=== PATIENT | male | born 1930 | race Caucasian/White ===

== ENCOUNTER 2016-12-19 07:42 | Observation (INO) ==
--- NOTE | 2016-12-19 08:10 | Emergency Department Note ---
Disposition Clinical Impression: Unwitnessed fall UTI (urinary tract infection) Qualifiers: Urinary tract infection type: site unspecified Hematuria presence: with hematuria Qualified Code(s): N39.0 - Urinary tract infection, site not specified Disposition: Admitted As Inpatient Condition: Good General Adult HPI - General Chief complaint: ED Fall Stated complaint: Fall/UTI Time Seen by Provider: 12/19/16 07:48 Source: patient, EMS Limitations: no limitations Nursing Notes Reviewed: Yes Vital Signs Reviewed: Yes - History of Present Illness HPI Narrative: History source: Patient is unable to provide information for this note. Info was gathered from the patient, hospital staff, the patient's chart. History limitations: Patient condition Medications: As per nurses note 86 yo male presents after a fall at 630am. Daughter found him on the floor this morning and he was unable to ambulate. Pt family thinks he has been diagnosed with UTI but is not currently taking antibiotics. Has fallen twice in the past two years but is generally able to ambulate throughout the house. Family states his current presentation is similar to his previous urinary tract infections. Patient has a history of dementia is generally slow to respond however he is unable to answer many of the questions that are posed to him during the exam. Pain Scale: 0 - Related Data Home Medications Medication Instructions Recorded Confirmed Aspirin [Adult Low Dose Aspirin EC] 81 mg PO DAILY 06/19/15 12/19/16 Spironolactone [Aldactone] 12.5 mg PO DAILY 06/19/15 12/19/16 Atorvastatin [Lipitor] 40 mg PO HS 12/19/16 12/19/16 Levothyroxine [Synthroid] 100 mcg PO 0630 12/19/16 12/19/16 Loperamide HCl [Imodium A-D] 4 mg PO BID 12/19/16 12/19/16 Melatonin 10 mg PO HS PRN 12/19/16 12/19/16 Memantine HCl 10 mg PO DAILY 12/19/16 12/19/16 Tamsulosin [Flomax] 0.4 mg PO DAILY 12/19/16 12/19/16 Previous Rx's Medication Instructions Recorded Lactobacillus Acidophilus 1 each PO DAILY #30 capsule 01/13/16 [Probiotic Gold Acidophilus] Allergies Allergy/AdvReac Type Severity Reaction Status Date / Time No Known Allergies Allergy Verified 12/19/16 10:31 Limitations: ROS unobtainable due to patients medical condition Past Medical History - Past Medical History Attestation: Yes The following information was validated with the patient. Source: patient, old records reviewed, obtained from family Medical history: Reports: arthritis, coronary artery disease, CVA, hyperlipidemia, hypertension, osteoporosis, thyroid disease, TIA Surgical history: Reports: carotid endarterectomy, knee replacement, pacemaker/ AICD Psychiatric history: Reports: no psych history - Social History Smoking Status: Former smoker Smokeless Tobacco Status: No Alcohol use: Reports: none Drug use: Reports: none Physical Exam General: Alert and in no acute distress Skin: Warm, dry, intact Head: Normocephalic and atraumatic Neck: Supple, trachea midline and no tenderness Cardiovascular: RRR, no murmur, normal perfusion Respiratory: CTAB, no wheezing, cough, or respiratory distress Musculoskeletal: Normal strength, no tenderness, swelling or deformity GI: Soft, nontender, nondistended. Bowel sounds present Neuro: A&O to person, place, time and situation. No focal deficits noted on exam Psychiatric: cooperative and appropriate mood and affect. - General Limitations: no limitations General appearance: alert Course Vital Signs Temperature 98.4 F 12/19/16 07:43 Pulse Rate 108 12/19/16 07:43 Respiratory Rate 16 12/19/16 07:43 Blood Pressure 113/67 12/19/16 07:43 O2 Sat by Pulse Oximetry 92 12/19/16 07:43 Temperature 97.6 F 12/20/16 19:24 Pulse Rate 114 12/20/16 19:24 Respiratory Rate 20 12/20/16 19:24 Blood Pressure 109/66 12/20/16 19:24 O2 Sat by Pulse Oximetry 98 12/20/16 19:24 Oxygen Delivery Oxygen Delivery Room Air Medical Decision Making - MDM Narrative Medical decision making narrative: Patient has urinary tract infection was started on antibiotics in the emergency department. He will be admitted to the hospital for further evaluation of UTI, altered mental status. Patient was found on the ground after unwitnessed fall and I am unable to rule out syncope. - Medical Records Medical records reviewed: Yes I reviewed the patient's medical records. - Lab Data Lab results reviewed: Yes I reviewed the patient's lab results. Result diagrams: 12/20/16 04:46 12/20/16 04:46 Lab Results 12/19/16 12/19/1612/19/17 Range/Units 08:39 08:39 08:39 WBC 11.8 H (4.3-11.1) K/mcL RBC 3.48 L (4.19-5.50) M/mcL Hgb 10.5 L (12.9-16.9) g/dL Hct 33.2 L (37.5-50.1) % MCV 95.4 (83.0-100.0) fL MCH 30.2 (28.0-33.3) pg MCHC 31.6 (31.6-35.5) g/dL RDW 24.6 H (11.5-14.5) % Plt Count 147 (140-400) K/mcL MPV 11.2 (9.4-12.4) fL Immature Gran % 1.4 (0-4) % Seg Neutrophils % 84.7 % Lymphocytes % 5.5 % Monocytes % 7.9 % Eosinophils % 0.1 % Basophils % 0.4 % Neutrophils # 10.0 H (1.6-8.9) K/mcL Lymphocytes # 0.7 (0.6-4.6) K/mcL Monocytes # 0.9 (0.0-1.3) K/mcL Eosinophils # 0.0 (0.0-0.6) K/mcL Basophils # 0.1 (0.0-0.2) K/mcL Nucleated RBCs/100 WBC 0.2 H (0) /100 WBC Platelet Estimate Normal (Normal) Poikilocytosis 1+ A (Not Present) Anisocytosis 1+ A (Not Present) Target Cells 1+ A (Not Present) Ovalocytes 1+ A (Not Present) PT 13.3 H (9.4-12.1) Seconds INR 1.2 APTT 29.2 (26.0-36.0) Seconds Sodium 143 (136-145) mEq/L Potassium 4.2 (3.5-4.5) mEq/L Chloride 109 (98-109) mEq/L Carbon Dioxide 26 (19-29) mEq/L BUN 44 H (8-26) mg/dL Creatinine 1.40 H (0.72-1.25) mg/dL Est GFR ( Amer) 58 L (> 60) Est GFR (Non-Af Amer) 48 L (> 60) BUN/Creatinine Ratio 31 H (6-26) Glucose 129 H (70-99) mg/dL Calculated Osmolality 309 H (280-300) Lactic Acid (0.5-2.2) mmol/L Calcium 8.9 (8.6-10.8) mg/dL Creatine Kinase 381 H (30-200) Units/L Troponin I (0-0.03) ng/mL Urine Color (Yellow) Urine Clarity (Clear) Urine pH (5.0-8.0) pH Units Ur Specific [place] (1.010-1.025) Urine Protein (Neg-Trace) mg/dL Urine Glucose (UA) (Normal) mg/dL Urine Ketones (Negative) mg/dL Urine Blood (Negative) Urine Nitrite (Negative) Urine Bilirubin (Negative) Urine Urobilinogen (Normal) mg/dL Ur Leukocyte Esterase (Negative) Urine Microscopic RBC (0-3) per hpf Urine Microscopic WBC (0-3) per hpf Ur Squamous Epith Cells (None-Few) per lpf Urine Bacteria (None-Few) per hpf Hyaline Casts (None-Few) per lpf Stool Occult Blood (Negative) Blood Type Antibody Screen 12/19/16 12/19/16 12/19/16 Range/Units 08:39 08:39 08:39 WBC (4.3-11.1) K/mcL RBC (4.19-5.50) M/mcL Hgb (12.9-16.9) g/dL Hct (37.5-50.1) % MCV (83.0-100.0) fL MCH (28.0-33.3) pg MCHC (31.6-35.5) g/dL RDW (11.5-14.5) % Plt Count (140-400) K/mcL MPV (9.4-12.4) fL Immature Gran % (0-4) % Seg Neutrophils % % Lymphocytes % % Monocytes % % Eosinophils % % Basophils % % Neutrophils # (1.6-8.9) K/mcL Lymphocytes # (0.6-4.6) K/mcL Monocytes # (0.0-1.3) K/mcL Eosinophils # (0.0-0.6) K/mcL Basophils # (0.0-0.2) K/mcL Nucleated RBCs/100 WBC (0) /100 WBC Platelet Estimate (Normal) Poikilocytosis (Not Present) Anisocytosis (Not Present) Target Cells (Not Present) Ovalocytes (Not Present) PT (9.4-12.1) Seconds INR APTT (26.0-36.0) Seconds Sodium (136-145) mEq/L Potassium (3.5-4.5) mEq/L Chloride (98-109) mEq/L Carbon Dioxide (19-29) mEq/L BUN (8-26) mg/dL Creatinine (0.72-1.25) mg/dL Est GFR ( Amer) (> 60) Est GFR (Non-Af Amer) (> 60) BUN/Creatinine Ratio (6-26) Glucose (70-99) mg/dL Calculated Osmolality (280-300) Lactic Acid 2.1 (0.5-2.2) mmol/L Calcium (8.6-10.8) mg/dL Creatine Kinase (30-200) Units/L Troponin I 0.01 (0-0.03) ng/mL Urine Color (Yellow) Urine Clarity (Clear) Urine pH (5.0-8.0) pH Units Ur Specific [place] (1.010-1.025) Urine Protein (Neg-Trace) mg/dL Urine Glucose (UA) (Normal) mg/dL Urine Ketones (Negative) mg/dL Urine Blood (Negative) Urine Nitrite (Negative) Urine Bilirubin (Negative) Urine Urobilinogen (Normal) mg/dL Ur Leukocyte Esterase (Negative) Urine Microscopic RBC (0-3) per hpf Urine Microscopic WBC (0-3) per hpf Ur Squamous Epith Cells (None-Few) per lpf Urine Bacteria (None-Few) per hpf Hyaline Casts (None-Few) per lpf Stool Occult Blood (Negative) Blood Type O POSITIVE Antibody Screen NEGATIVE 12/19/16 12/19/16 Range/Units 09:50 09:50 WBC (4.3-11.1) K/mcL RBC (4.19-5.50) M/mcL Hgb (12.9-16.9) g/dL Hct (37.5-50.1) % MCV (83.0-100.0) fL MCH (28.0-33.3) pg MCHC (31.6-35.5) g/dL RDW (11.5-14.5) % Plt Count (140-400) K/mcL MPV (9.4-12.4) fL Immature Gran % (0-4) % Seg Neutrophils % % Lymphocytes % % Monocytes % % Eosinophils % % Basophils % % Neutrophils # (1.6-8.9) K/mcL Lymphocytes # (0.6-4.6) K/mcL Monocytes # (0.0-1.3) K/mcL Eosinophils # (0.0-0.6) K/mcL Basophils # (0.0-0.2) K/mcL Nucleated RBCs/100 WBC (0) /100 WBC Platelet Estimate (Normal) Poikilocytosis (Not Present) Anisocytosis (Not Present) Target Cells (Not Present) Ovalocytes (Not Present) PT (9.4-12.1) Seconds INR APTT (26.0-36.0) Seconds Sodium (136-145) mEq/L Potassium (3.5-4.5) mEq/L Chloride (98-109) mEq/L Carbon Dioxide (19-29) mEq/L BUN (8-26) mg/dL Creatinine (0.72-1.25) mg/dL Est GFR ( Amer) (> 60) Est GFR (Non-Af Amer) (> 60) BUN/Creatinine Ratio (6-26) Glucose (70-99) mg/dL Calculated Osmolality (280-300) Lactic Acid (0.5-2.2) mmol/L Calcium (8.6-10.8) mg/dL Creatine Kinase (30-200) Units/L Troponin I (0-0.03) ng/mL Urine Color Yellow (Yellow) Urine Clarity Cloudy A (Clear) Urine pH 6.0 (5.0-8.0) pH Units Ur Specific [place] 1.016 (1.010-1.025) Urine Protein 100 H (Neg-Trace) mg/dL Urine Glucose (UA) Normal (Normal) mg/dL Urine Ketones Negative (Negative) mg/dL Urine Blood Large H (Negative) Urine Nitrite Negative (Negative) Urine Bilirubin Negative (Negative) Urine Urobilinogen 4.0 H (Normal) mg/dL Ur Leukocyte Esterase Moderate H (Negative) Urine Microscopic RBC 30-50 H (0-3) per hpf Urine Microscopic WBC TNTC H (0-3) per hpf Ur Squamous Epith Cells Moderate H (None-Few) per lpf Urine Bacteria Moderate H (None-Few) per hpf Hyaline Casts None Seen (None-Few) per lpf Stool Occult Blood Positive A (Negative) Blood Type Antibody Screen - Radiology Data Radiology results reviewed: Yes I reviewed the patient's radiology results. - EKG Data EKG #1 EKG attestation: Yes I reviewed and interpreted this EKG. EKG results narrative: ECG - interpreted by ED physician. [id number] sinus tachycardia, LBBB
[2016-12-19 08:48] LABS: Basophils # 0.1 K/mcL (0.0-0.2); Basophils % 0.4 %; Eosinophils % 0.1 %; Hematocrit 33.2 % (37.5-50.1); Hemoglobin 10.5 g/dL (12.9-16.9); Immature Granulocytes % 1.4 % (0-4); Lymphocytes # 0.7 K/mcL (0.6-4.6); Lymphocytes % 5.5 %; Mean Corpuscular HGB Conc 31.6 g/dL (31.6-35.5); Mean Corpuscular Hemoglobin 30.2 pg (28.0-33.3); Mean Corpuscular Volume 95.4 fL (83.0-100.0); Mean Platelet Volume 11.2 fL (9.4-12.4); Monocytes # 0.9 K/mcL (0.0-1.3); Monocytes % 7.9 %; Nucleated Red Blood Cells 0.2 /100 WBC (0); Platelet Count 147 K/mcL (140-400); Red Blood Count 3.48 M/mcL (4.19-5.50); Red Cell Distribution Width 24.6 % (11.5-14.5); Segmented Neutrophils % 84.7 %
[2016-12-19 08:54] LABS: INR 1.2; Prothrombin Time 13.3 Seconds (9.4-12.1)
[2016-12-19 08:57] LABS: Activated Partial Thrombo Time 29.2 Seconds (26.0-36.0)
[2016-12-19 09:01] LABS: Calcium 8.9 mg/dL (8.6-10.8); Potassium 4.2 mEq/L (3.5-4.5)
[2016-12-19 09:08] LABS: Anisocytosis 1+ (Not Present); Ovalocytes 1+ (Not Present); Platelet Estimate Normal (Normal); Poikilocytosis 1+ (Not Present)
[2016-12-19 09:09] LABS: Target Cells 1+ (Not Present)
[2016-12-19] MEDS ORDERED: 0.9 % Sodium Chloride 1,000 ML IVC ONE (09:34)
[2016-12-19 10:04] LABS: Bilirubin,Urine Negative (Negative); Blood,Urine Large (Negative); Clarity,Urine Cloudy (Clear); Color,Urine Yellow (Yellow); Glucose,Urine (UA) Normal (Normal); Ketones,Urine Negative (Negative); Leukocyte Esterase,Urine Moderate (Negative); Nitrite,Urine Negative (Negative); Protein,Urine 100 mg/dL (Neg-Trace); Specific Gravity,Urine 1.016 (1.010-1.025)
[2016-12-19 10:07] LABS: Bacteria,Urine Moderate per hpf (None-Few); Hyaline Casts,Urine None Seen per lpf (None-Few); RBC,Urine 30-50 per hpf (0-3); Squamous Epithelial Cell,Urine Moderate per lpf (None-Few); WBC,Urine TNTC per hpf (0-3)
[2016-12-19] MEDS ORDERED: *HR* HYDROcodone/Acet 5/325 mg TABLET PO PRN (11:48)
[2016-12-19] MEDS ORDERED: *HR* Morphine 2 MG/ML SYRINGE IVP PRN (11:48)
[2016-12-19] MEDS ORDERED: Ondansetron 4 MG/2 ML VIAL IVP PRN (11:48)
[2016-12-19] MEDS ORDERED: Naloxone 0.4 MG/ML INJ IVP PRN (11:48)
--- NOTE | 2016-12-19 12:01 | Internal Med History&Physical ---
<KrystenjerRobe fonseca - Last Filed: 12/19/16 12:53> Date of Encounter: 12/19/16 Time of Encounter: 11:00 Assessment and Plan (1) UTI (urinary tract infection) Current visit: Yes Status: Acute Patient presents with history of UTI and is currently experiencing AMS that family states is worse than usual. Patient's initial urinalysis was indicative of blood and possible infection so urine culture ordered stat. IV Rocephin started in the ED and will be continued at 1,000 mg daily. Follow-up labs ordered. Patient to receive IV fluids judiciously at 75 mL/HR due to dehydration and current FREDDY and GFR of 48. Will monitor I&O and daily weight as well as patient's mental status. Patient placed with safety precautions due to falls. Qualifiers: Urinary tract infection type: site unspecified Hematuria presence: with hematuria Qualified Code(s): N39.0 - Urinary tract infection, site not specified; R31.9 - Hematuria, unspecified (2) Acute kidney injury Current visit: Yes Status: Acute Patient presents with acute kidney injury most likely related to current dehydration status and UTI. Patient's current GFR is 48. Urine culture ordered stat. Will administer IV fluids @ 75 mL/HR and continue IV Rocephin. Monitor I& O and daily weight. Follow-up labs ordered to monitor renal function. (3) Diarrhea Current visit: Yes Status: Acute Patient presents with acute diarrhea that family states has been sporadic for the past few weeks. Patient has history of antibiotic use related to UTIs. C. diff toxin screen ordered. Will hold patient's Imodium at present time and monitor for fecal occult or unusual bleeding. Qualifiers: Diarrhea type: unspecified type Qualified Code(s): R19.7 - Diarrhea, unspecified (4) Falls Current visit: Yes Status: Acute Patient presents with acute on chronic falls history. Patient reports falling this morning and was found by his daughter. Patient is currently experiencing AMS due to likely UTI and will be placed as falls precautions/up with assist/ bed rest with bathroom privileges with assist only. Qualifiers: Encounter type: initial encounter Qualified Code(s): W19.XXXA - Unspecified fall, initial encounter (5) Anemia Current visit: Yes Status: Chronic Patient has history of chronic anemia and tests currently positive for blood in stool and urine. Patient was typed and screened during previous visit in case transfusion is required. Will monitor H/H in follow up labs and assess patient for signs of bleeding. Due to current test results, patient placed on mechanical DVT prophylaxis. Qualifiers: Anemia type: unspecified type Qualified Code(s): D64.9 - Anemia, unspecified (6) HLD (hyperlipidemia) Current visit: Yes Status: Chronic Patient has history of chronic hyperlipidemia. Lipid panel ordered. Will continue patient's Lipitor. Qualifiers: Hyperlipidemia type: pure hypercholesterolemia Qualified Code(s): E78.00 - Pure hypercholesterolemia, unspecified; E78.0 - Pure hypercholesterolemia (7) Hypertension Current visit: Yes Status: Chronic Patient presents with history of chronic hypertension. Will monitor patient and vital signs and continue patient's Aldactone. Qualifiers: Hypertension type: essential hypertension Qualified Code(s): I10 - Essential (primary) hypertension (8) Thyroid disease Current visit: Yes Status: Chronic Patient has history of chronic thyroid disease. Will continue patient's Synthroid. (9) DVT prophylaxis Current visit: Yes Status: Acute Patient placed on DVT prophylaxis due to admission protocol and current bed rest status. Patient's urinalysis and fecal occult stool tests both positive for blood, so will use mechanical DVT prophylaxis and SCDs to be placed bilaterally on patient's LEs. Internal Medicine - H&P: HPI Chief complaint: Fall/AMS/UTI Admitted From: Emergency Dept Plans for Post Hospital Care: Home History of present illness: Mr. Smith is a 86 year old male who presents from the ED with chief complaint of fall and altered mental status. Patient is currently A& O x1 and does not answer questions appropriately, so information taken from family as well as patient. Patient's family states that he has been "out of sorts" all weekend and more confused than usual. They report that the patient does shows signs of mild dementia occasionally but this is worse than his usual. They also state that he has sporadic diarrhea and a history of UTIs. The family states that the patient uses a cane and is able to ambulate well usually. CT of the cervical spine without contrast today shows moderate multilevel degenerative disc disease and facet arthropathy as well as left subclavian pacemaker which would preclude MRI. Otherwise, no acute abnormality of the cervical spine. Single view CXR today shows left basilar airspace disease likely result representing atelectasis. Single view excimer of the pelvis today shows no acute osseous abnormality and moderate osteoarthritis of the bilateral hips. CT of head without contrast today shows no acute intracranial abnormality. Patient has a medical history of arthritis, CAD, HLD, HTN, osteoporosis, thyroid disease, and TIA. Patient's original medical history from ED states history of CVA which family denies. Patient currently has pacemaker/AICD and history of heart catheterization with stent placement. Patient also had carotid endarterectomy. Patient is a moderate risk for neurological decline aced on current symptoms and history of UTI and will be placed as inpatient status with continuous cardiac telemetry due to current tachycardia on admission to ED, supplemental O2 with continuous SPO2 monitoring, IV Rocephin 1,000 mg daily, and safety precautions for falls/up with assist. Urine culture ordered stat. Patient has history of anemia and chronically low Hgb and Hct so follow-up labs to monitor H /H ordered. Patient's urinalysis is positive for blood and fecal occult stool is positive as well. Patient was previously typed and screened and H/H and signs of active bleeding to be monitored closely. Patient appears mildly dehydrated and will receive IV 0.9 NS at 75 mL/HR based on patient's current GFR of 48. Time spent with patient > 40 minutes. Past Med Surg Social Fam HX - Past Medical History Source: obtained from family Medical history: arthritis, coronary artery disease, CVA, hyperlipidemia, hypertension, osteoporosis, thyroid disease, TIA Psychiatric history: no psych history - Past Surgical History Surgical History: carotid endarterectomy, knee replacement, pacemaker/AICD - Social History Smoking Status: Former smoker (Cigars) Smokeless Tobacco Status: No Alcohol use: none Drug use: none Occupational status: retired Current living situation: Home, With Family Activity Level: Uses cane/walker Recent Out of Country Travel Within the Last 8 Weeks: No Exposure or Possible Exposure to Illness During Travel: No - Family History Mother Race: Family Member Ethnicity: Non- Living Status: Age at : 60 Cause of : PR Hx Family Cardiac Disorders: Yes (PR) Father Race: Family Member Ethnicity: Non- Living Status: Age at : 69 Cause of : PR Hx Family Cardiac Disorders: Yes (PR) Brother Race: Family Member Ethnicity: Non- Living Status: Cause of : PR Hx Family Cardiac Disorders: Yes (PR) Sister Race: Family Member Ethnicity: Non- Living Status: Cause of : Dementia Hx Family Neurologic Disorders: Yes (Dementia/Alzheimer's disease) Internal Medicine - H&P: Meds Aspirin [Adult Low Dose Aspirin EC] 81 mg PO DAILY 06/19/15 [History] Spironolactone [Aldactone] 12.5 mg PO DAILY 06/19/15 [History] Lactobacillus Acidophilus [Probiotic Gold Acidophilus] 1 each PO DAILY #30 capsule 01/13/16 [Rx] Atorvastatin [Lipitor] 40 mg PO HS 12/19/16 [History] Levothyroxine [Synthroid] 100 mcg PO 0630 12/19/16 [History] Loperamide HCl [Imodium A-D] 4 mg PO BID 12/19/16 [History] Melatonin 10 mg PO HS PRN 12/19/16 [History] Memantine HCl 10 mg PO DAILY 12/19/16 [History] Tamsulosin [Flomax] 0.4 mg PO DAILY 12/19/16 [History] Allergies No Known Allergies Allergy (Verified 12/19/16 10:31) All Systems PM: A 10-system review of systems was performed and is negative for pertinent findings except as documented above in the HPI. - Constitutional Constitutional: as per HPI, falls, no chills, no fever(s), no night sweats - EENT Eyes: no change in vision, no discharge, no pain, no photophobia Ears: no ear discharge, no ear pain, no tinnitus Nose, mouth and throat: no dysphagia, no nasal discharge, no neck pain, no sore throat - Breasts Breasts: as per HPI - Cardiovascular Cardiovascular ROS IM: no chest pain, no diaphoresis, no dyspnea, no lightheadedness, no palpitations, no syncope - Respiratory Respiratory: no cough, no dyspnea, no wheezing, no excessive phlegm production - Gastrointestinal Gastrointestinal: no abdominal pain, no diarrhea, no hematemesis, no hematochezia, no melena, no nausea, no vomiting - Genitourinary Genitourinary ROS male: as per HPI, urinary frequency - Musculoskeletal Musculoskeletal ROS IM: no numbness, no tingling - Integumentary Integumentary IM: no rash, no unusual bruising - Neurological Neurological ROS: as per HPI, confusion, no convulsions, no focal weakness, no numbness, no tingling, no tremor(s) - Psychiatric Psychiatric: as per HPI - Endocrine Endocrine IM: as per HPI - Hematologic/Lymphatic Hematologic/Lymphatic: as per HPI (Blood present in fecal occult stool and urinalysis) - Allergic/Immunologic Allergic/Immunologic: as per HPI - Constitutional Vitals: Temp Pulse Resp BP Pulse Ox 98.4 F 74 16 112/64 95 12/19/16 07:43 12/19/16 10:30 12/19/16 11:32 12/19/16 11:32 12/19/16 10:30 General appearance: Present: A&O X 1, no acute distress - Head Head exam: Present: atraumatic, normocephalic - Eye Eye exam: Present: PERRL, conjuntiva pink, sclera anicteric Pupils: Present: PERRL - ENT ENT exam: Present: normal exam, normal external ear exam - Neck Neck exam general surgery: Present: supple, trachea midline. Absent: lymphadenopathy - Respiratory Respiratory exam: Present: CTAB. Absent: accessory muscle use, rales, rhonchi, wheezes - Cardiovascular Cardiovascular exam: Present: RRR, +S1, +S2. Absent: diastolic murmur, gallop, rubs, systolic murmur - GI/Abdominal GI/Abdominal exam: Present: normal bowel sounds, soft, no peritoneal signs. Absent: distended, tenderness - Rectal Rectal exam: Present: deferred - Additional comments: exam deferred. - Extremities Exam Extremities exam: Present: warm, radial pulses palpable and symetrical. Absent : calf tenderness, cyanotic, pedal edema - Back Exam Back exam: Present: normal inspection - Neurological Exam Neurological exam: Present: altered. Absent: facial droop, speech deficit - Psychiatric Psychiatric exam: Present: flat affect - Skin Skin exam: Present: dry, intact Internal Med - H&P Results - Labs CBC & Chem 7: 12/19/16 08:39 12/19/16 08:39 - EKG Data EKG shows normal: sinus rhythm Rate: tachycardia - EKG Data Prior EKG available for review: yes When compared to previous EKG: there is no significant change EKG comments: 12/19/16 12:17 EKG dated 07/28/15 shows sinus rhythm with marked left axis deviation and nonspecific T-wave abnormality. EKG dated 12/19/16 shows sinus tachycardia with marked left axis deviation ( pattern consistent with pulmonary disease), moderate intraventricular conduction delay, nonspecific T-wave abnormality. - Diagnostic Studies Chest x-ray Additional comments: Impressions Chest X-Ray 12/19/16 08:14 IMPRESSION: Left basilar airspace disease likely representing atelectasis D/ / Magdy Altamirano MD / Magdy Altamirano MD Interpreting Provider: Magdy Altamirano MD Abdominal x-ray Additional comments: Impressions Pelvis X-Ray 12/19/16 08:14 IMPRESSION: 1. No acute osseous abnormality. 2. Moderate osteoarthritis of the bilateral hips. D/ / 12/19/2016 08:37:18 Jay Daniels MD / [place] Interpreting Provider: Jay Daniels MD CT scan - head Additional comments: Impressions Head CT 12/19/16 08:15 IMPRESSION: No acute intracranial abnormality. D/ / Matty Hardy MD / Matty Hardy MD Interpreting Provider: Matty Hardy MD Other Images Additional comments: Impressions Cervical Spine CT 12/19/16 08:14 IMPRESSION: No acute abnormality of the cervical spine. Moderate multilevel degenerative disc disease and facet arthropathy as described above. If there are neurologic symptoms, cervical myelogram could be performed for further evaluation. There appears to be a left subclavian pacemaker which would preclude MRI. D/ / Jamel Weir MD / Jamel Weir MD Interpreting Provider: Jamel Weir MD <AleksanderLiannenavneet - Last Filed: 12/19/16 14:07> Date of Encounter: 12/19/16 Internal Medicine - H&P: HPI History of present illness: Mr. Smith is a 86 year old male All Systems PM: A 10-system review of systems was performed and is negative for pertinent findings except as documented above in the HPI. - Constitutional Vitals: Temp Pulse Resp BP Pulse Ox 97.6 F 71 16 116/72 96 12/19/16 12:04 12/19/16 12:04 12/19/16 12:04 12/19/16 12:04 12/19/16 12:04 Internal Med - H&P Results - Labs CBC & Chem 7: 12/19/16 08:39 12/19/16 08:39 - Attending Attestation I saw and examined pt. I have discussed with DATA ANALYTICS ANALYST regarding the management plan. Agree with documentation. 86 YOM present with disorientation. Test shows UTI. Pt has no fever or elevated WBC. Will cont rocephin iv. Pt also has mild elevated BUN/Cr. Consider dehydration, will give low rate IVF along with diet order.
[2016-12-19] MEDS ORDERED: Melatonin 3 MG TABLET PO PRN (12:38)
[2016-12-19] MEDS: 0.9 % Sodium Chloride 1,000 ML IVC SCH (14:08)
[2016-12-19] MEDS: Pantoprazole 40 MG VIAL IVP SCH (14:08)
[2016-12-19] MEDS: Spironolactone 25 MG TABLET PO SCH (14:08)
[2016-12-19] MEDS: Aspirin Enteric Coated 81 MG Tablet PO SCH (14:09)
[2016-12-19] MEDS: Lactobacillus 1 EACH CAP.SPRINK PO SCH (14:09)
[2016-12-19] MEDS: Acetaminophen 325 MG TABLET PO PRN (16:37)
[2016-12-20] MEDS: 0.9 % Sodium Chloride 1,000 ML IVC SCH (03:01)
[2016-12-20 04:55] LABS: Basophils # 0.1 K/mcL (0.0-0.2); Basophils % 0.7 %; Eosinophils # 0.1 K/mcL (0.0-0.6); Eosinophils % 0.8 %; Hemoglobin 9.7 g/dL (12.9-16.9); Immature Granulocytes % 2.1 % (0-4); Lymphocytes % 11.6 %; Mean Corpuscular HGB Conc 32.3 g/dL (31.6-35.5); Mean Corpuscular Hemoglobin 30.9 pg (28.0-33.3); Mean Corpuscular Volume 95.5 fL (83.0-100.0); Mean Platelet Volume 11.8 fL (9.4-12.4); Monocytes # 0.9 K/mcL (0.0-1.3); Monocytes % 10.4 %; Neutrophils # 6.7 K/mcL (1.6-8.9); Nucleated Red Blood Cells 0.2 /100 WBC (0); Platelet Count 129 K/mcL (140-400); Red Blood Count 3.14 M/mcL (4.19-5.50); Segmented Neutrophils % 74.4 %
[2016-12-20 05:06] LABS: Hemoglobin A1C 5.8 %
[2016-12-20 05:10] LABS: Chol/HDL Ratio 2.7 (0-4.9); Magnesium 1.8 mg/dL (1.6-2.6)
[2016-12-20 05:42] LABS: Acanthocytes 1+ (Not Present); Anisocytosis 1+ (Not Present)
[2016-12-20 05:44] LABS: Macrocytosis Present (Not Present); Ovalocytes 1+ (Not Present); Poikilocytosis 1+ (Not Present)
[2016-12-20 05:45] LABS: Microcytosis Present (Not Present); Platelet Estimate Normal (Normal)
[2016-12-20] MEDS: Aspirin Enteric Coated 81 MG Tablet PO SCH (09:07)
[2016-12-20] MEDS: Lactobacillus 1 EACH CAP.SPRINK PO SCH (09:07)
[2016-12-20] MEDS: Spironolactone 25 MG TABLET PO SCH (09:07)
[2016-12-20] MEDS: Pantoprazole 40 MG VIAL IVP SCH (09:07)
[2016-12-20] MEDS: Acetaminophen 325 MG TABLET PO PRN (14:32)
--- NOTE | 2016-12-20 16:45 | Internal Med Progress Note ---
Date of Encounter: 12/20/16 Time of Encounter: 10:00 - Assessment and plan (1) Encephalopathy acute Current Visit: No Status: Resolved Assessment and plan: Most likely due to UTI. We will continue antibiotic and IV fluid. Closely monitor patient. (2) CVA, old, cognitive deficits Current Visit: No Status: Chronic Assessment and plan: History of CVA. Continue antiplatelet and statin. (3) Hypertension Current Visit: Yes Status: Chronic Assessment and plan: Continue home medications. BP is stable. Qualifiers: Hypertension type: essential hypertension Qualified Code(s): I10 - Essential (primary) hypertension (4) Coronary artery disease Current Visit: No Status: Chronic Assessment and plan: Stable. Continue aspirin and statin. Qualifiers: Coronary Disease-Associated Artery/Lesion type: [place] artery [place] vs. transplanted heart: [place] heart Associated angina: without angina Qualified Code(s): I25.10 - Atherosclerotic heart disease of [place] coronary artery without angina pectoris (5) Anemia Current Visit: Yes Status: Chronic Assessment and plan: Chronic anemia. Hemoglobin level is stable. We will place anemia workup. - Patient has positive guaiac test in emergency room, hemoglobin is generally stable. Will continue closely follow-up hemoglobin level. - No signs of active bleeding so far. Qualifiers: Anemia type: unspecified type Qualified Code(s): D64.9 - Anemia, unspecified (6) UTI (urinary tract infection) Current Visit: Yes Status: Acute Assessment and plan: Urine culture positive. Continue Rocephin. Wait for final result. Qualifiers: Urinary tract infection type: site unspecified Hematuria presence: with hematuria Qualified Code(s): N39.0 - Urinary tract infection, site not specified; R31.9 - Hematuria, unspecified (7) Generalized weakness Current Visit: No Status: Acute Assessment and plan: Management as above (8) DVT prophylaxis Current Visit: Yes Status: Acute Assessment and plan: EPCD, no anticoagulations because of positive guaiac test. (9) Thyroid disease Current Visit: Yes Status: Chronic Assessment and plan: Hypothyroidism. Continue home medications - Time Spent With Patient 25 - 35 minutes - Subjective Interval history: Patient is a 86-year-old male admitted for altered mental status. Patient was found UTI. Past medical history is significant for dementia, history of CVA, hypertension, CAD. I saw and examined the patient. Still weak. Mental status seems more awake alert after treatment. Vital signs stable except mild tachycardia. Patient also has low fever last night. Urine culture shows gram-positive cocci. We will continue IV Rocephin and IV fluid. Waiting for final sensitivity results. - Constitutional Vitals: Temp Pulse Resp BP Pulse Ox 98.2 F 111 16 119/67 100 12/20/16 14:56 12/20/16 14:56 12/20/16 14:56 12/20/16 14:56 12/20/16 14:56 General appearance: Present: A&O X 1, no acute distress - Head Head exam: Present: atraumatic, normocephalic - Eye Eye exam: Present: PERRL, conjuntiva pink, sclera anicteric Pupils: Present: PERRL - Neck Neck exam general surgery: Present: supple, trachea midline. Absent: lymphadenopathy - Respiratory Respiratory exam: Present: CTAB. Absent: accessory muscle use, rales, rhonchi, wheezes - Cardiovascular Cardiovascular exam: Present: RRR, +S1, +S2. Absent: diastolic murmur, gallop, rubs, systolic murmur - GI/Abdominal GI/Abdominal exam: Present: normal bowel sounds, soft, no peritoneal signs. Absent: distended, tenderness - Extremities Exam Extremities exam: Present: warm, radial pulses palpable and symetrical. Absent : calf tenderness, cyanotic, pedal edema - Neurological Exam Neurological exam: Present: CN II-XII intact, oriented X3, no focal deficits. Absent: pronater drift, facial droop, speech deficit - Skin Skin exam: Present: dry, intact Internal Medicine: Result - Labs CBC & Chem 7: 12/20/16 04:46 12/20/16 04:46 Labs: Short CBC 12/20/16 Range/Units 04:46 WBC 9.0 (4.3-11.1) K/mcL Hgb 9.7 L (12.9-16.9) g/dL Hct 30.0 L (37.5-50.1) % Plt Count 129 L (140-400) K/mcL Neutrophils # 6.7 (1.6-8.9) K/mcL BMP 12/20/16 04:46 Sodium 141 Potassium 4.0 Chloride 111 H Carbon Dioxide 26 BUN 42 H Creatinine 1.39 H Glucose 97 Calcium 8.0 L - ABG Interpretation ABG results: PT/INR, D-dimer PT 13.3 Seconds (9.4-12.1) H 12/19/16 08:39 - VTE Documentation of Mechanical Device: Intermittent pneumatic compression device Consult Discharge Plan - Plan Referrals: Edy Rizzo MD [Primary Care Provider] -
[2016-12-20] MEDS ORDERED: 0.9 % Sodium Chloride 1,000 ML IVC SCH (16:49)
--- NOTE | 2016-12-20 17:32 | Electrocardiograph Report ---
[place] [id number] Test Date: 2016-12-19 Pat Name: Nasima Smith Department: 105 Room: 3B43 Gender: M Macadam Raker: : 1930 Requested By: Miah Reid Order Number: [id number] Reading MD: Enma Ramesh Measurements Intervals [place] Rate: 100 P: 75 MN: 169 QRS: -32 QRSD: 116 T: 75 QT: 349 QTc: 406 Interpretive Statements SINUS TACHYCARDIA LEFT AXIS DEVIATION INTRAVENTRICULAR CONDUCTION DELAY NONSPECIFIC T-WAVE ABNORMALITY Electronically Signed On 12-20-2016 17:31:10 EDT by Enma Ramesh
[2016-12-21] MEDS: Acetaminophen 325 MG TABLET PO PRN (00:39)
[2016-12-21 05:29] LABS: Basophils # 0.1 K/mcL (0.0-0.2); Basophils % 0.7 %; Eosinophils # 0.1 K/mcL (0.0-0.6); Eosinophils % 0.7 %; Hematocrit 31.8 % (37.5-50.1); Hemoglobin 10.3 g/dL (12.9-16.9); Immature Granulocytes % 4.1 % (0-4); Lymphocytes # 0.9 K/mcL (0.6-4.6); Lymphocytes % 9.7 %; Mean Corpuscular HGB Conc 32.4 g/dL (31.6-35.5); Mean Corpuscular Hemoglobin 30.4 pg (28.0-33.3); Mean Corpuscular Volume 93.8 fL (83.0-100.0); Mean Platelet Volume 12.2 fL (9.4-12.4); Monocytes % 10.5 %; Neutrophils # 6.9 K/mcL (1.6-8.9); Nucleated Red Blood Cells 0.3 /100 WBC (0); Platelet Count 134 K/mcL (140-400); Red Blood Count 3.39 M/mcL (4.19-5.50); Red Cell Distribution Width 24.5 % (11.5-14.5); Segmented Neutrophils % 74.3 %
[2016-12-21 05:43] LABS: % Iron Saturation 14 % (20-55); Iron 28 mcg/dL (65-175); Transferrin 142 mg/dL (174-364)
[2016-12-21 05:45] LABS: BUN/Creatinine Ratio 26 (6-26); Blood Urea Nitrogen 33 mg/dL (8-26); Calcium 8.3 mg/dL (8.6-10.8); Carbon Dioxide 26 mEq/L (19-29); Chloride 109 mEq/L (98-109); Glucose 114 mg/dL (70-99); Osmolality,Calculated 298 (280-300); Potassium 3.6 mEq/L (3.5-4.5); Sodium 140 mEq/L (136-145); eGFR For African Americans > 60 (> 60); eGFR For Non-African Americans 55 (> 60)
[2016-12-21 05:53] LABS: Anisocytosis 3+ (Not Present)
[2016-12-21 05:54] LABS: Hypochromasia Present (Not Present); Target Cells 2+ (Not Present)
[2016-12-21 05:55] LABS: Burr Cells 1+ (Not Present); Platelet Estimate Slight Decrease (Normal); Polychromasia 1+ (Not Present)
[2016-12-21 06:17] LABS: Folate 13.5 ng/mL (7.0-31.4)
[2016-12-21 06:35] LABS: Ferritin 2254 ng/ml (22-275)
[2016-12-21] MEDS: Pantoprazole 40 MG VIAL IVP SCH (09:15)
[2016-12-21] MEDS: Aspirin Enteric Coated 81 MG Tablet PO SCH (09:15)
[2016-12-21] MEDS: Lactobacillus 1 EACH CAP.SPRINK PO SCH (09:15)
[2016-12-21] MEDS: Spironolactone 25 MG TABLET PO SCH (09:16)
[2016-12-21] MEDS: Metoprolol XL (24 HR) Succ 25 MG TAB.ER.24H PO SCH (09:18)
[2016-12-21] MEDS: Cyanocobalamin (B-12) 1,000 MCG TABLET PO SCH (09:18)
--- NOTE | 2016-12-21 16:39 | Internal Med Progress Note ---
Date of Encounter: 12/21/16 Time of Encounter: 10:00 - Assessment and plan (1) Encephalopathy acute Current Visit: No Status: Resolved Assessment and plan: Most likely due to UTI. We will continue antibiotic and IV fluid. Closely monitor patient. Seem improved to his baseline. (2) CVA, old, cognitive deficits Current Visit: No Status: Chronic Assessment and plan: History of CVA. Continue antiplatelet and statin. (3) Hypertension Current Visit: Yes Status: Chronic Assessment and plan: Continue home medications. BP is stable. Qualifiers: Hypertension type: essential hypertension Qualified Code(s): I10 - Essential (primary) hypertension (4) Coronary artery disease Current Visit: No Status: Chronic Assessment and plan: Stable. Continue aspirin and statin. Add Beta joe. Qualifiers: Coronary Disease-Associated Artery/Lesion type: [place] artery [place] vs. transplanted heart: [place] heart Associated angina: without angina Qualified Code(s): I25.10 - Atherosclerotic heart disease of [place] coronary artery without angina pectoris (5) Anemia Current Visit: Yes Status: Chronic Assessment and plan: Chronic anemia. Hemoglobin level is stable. Anemia work up suggest anemia due to chronic disease, possibly due to CKD. - Patient has positive guaiac test in emergency room, hemoglobin remain stable x 3 days. No further test warranted. - Pt also has Vit B12 deficiency, will give supplement. Qualifiers: Anemia type: due to chronic kidney disease Chronic kidney disease stage: stage 3 (moderate) Qualified Code(s): N18.3 - Chronic kidney disease, stage 3 (moderate); D63.1 - Anemia in chronic kidney disease (6) UTI (urinary tract infection) Current Visit: Yes Status: Acute Assessment and plan: Urine culture positive. Switch to po Augmentin per sensitivity. Qualifiers: Urinary tract infection type: site unspecified Hematuria presence: with hematuria Qualified Code(s): N39.0 - Urinary tract infection, site not specified; R31.9 - Hematuria, unspecified (7) Generalized weakness Current Visit: No Status: Acute Assessment and plan: Management as above (8) DVT prophylaxis Current Visit: Yes Status: Acute Assessment and plan: EPCD, no anticoagulations because of positive guaiac test. (9) Thyroid disease Current Visit: Yes Status: Chronic Assessment and plan: Hypothyroidism. Continue home medications (10) Vitamin B 12 deficiency Current Visit: Yes Status: Acute Assessment and plan: Will give pt supplement. - Time Spent With Patient 25 - 35 minutes - Subjective Interval history: Patient is a 86-year-old male admitted for altered mental status. Patient was found UTI. Past medical history is significant for dementia, history of CVA, hypertension, CAD. I saw and examined the patient. Still weak. Mental status seems more awake alert after treatment, at about his baseline. Vital signs stable. No fever. Urine culture shows Enterococcus faecalis, sensitive to ampicillin. Will switch rocephin iv to po augmentin. PT/OT recommend ECF discharge, however, pt's family would like to take pt home with home health. Plan to dc pt tomorrow if condition remains stable. - Constitutional Vitals: Temp Pulse Resp BP Pulse Ox 97.7 F 95 16 120/84 100 12/21/16 15:40 12/21/16 15:40 12/21/16 15:40 12/21/16 15:40 12/21/16 15:40 General appearance: Present: A&O X 1, no acute distress - Head Head exam: Present: atraumatic, normocephalic - Eye Eye exam: Present: PERRL, conjuntiva pink, sclera anicteric Pupils: Present: PERRL - Neck Neck exam general surgery: Present: supple, trachea midline. Absent: lymphadenopathy - Respiratory Respiratory exam: Present: CTAB. Absent: accessory muscle use, rales, rhonchi, wheezes - Cardiovascular Cardiovascular exam: Present: RRR, +S1, +S2. Absent: diastolic murmur, gallop, rubs, systolic murmur - GI/Abdominal GI/Abdominal exam: Present: normal bowel sounds, soft, no peritoneal signs. Absent: distended, tenderness - Extremities Exam Extremities exam: Present: warm, radial pulses palpable and symetrical. Absent : calf tenderness, cyanotic, pedal edema - Neurological Exam Neurological exam: Present: CN II-XII intact, oriented X3, no focal deficits. Absent: pronater drift, facial droop, speech deficit - Skin Skin exam: Present: dry, intact Internal Medicine: Result - Labs CBC & Chem 7: 12/21/16 04:25 12/21/16 04:25 Labs: Short CBC 12/21/16 Range/Units 04:25 WBC 9.3 (4.3-11.1) K/mcL Hgb 10.3 L (12.9-16.9) g/dL Hct 31.8 L (37.5-50.1) % Plt Count 134 L (140-400) K/mcL Neutrophils # 6.9 (1.6-8.9) K/mcL BMP 12/21/16 04:25 Sodium 140 Potassium 3.6 Chloride 109 Carbon Dioxide 26 BUN 33 H Creatinine 1.25 Glucose 114 H Calcium 8.3 L - ABG Interpretation ABG results: PT/INR, D-dimer PT 13.3 Seconds (9.4-12.1) H 12/19/16 08:39 - VTE Documentation of Mechanical Device: Intermittent pneumatic compression device Consult Discharge Plan - Plan Referrals: Edy Rizzo MD [Primary Care Provider] -
[2016-12-21] MEDS: Amoxicillin/Clavulanate 500 MG TABLET PO SCH (17:00)
[2016-12-22 06:31] LABS: Hematocrit 32.4 % (37.5-50.1); Hemoglobin 10.4 g/dL (12.9-16.9); Mean Corpuscular HGB Conc 32.1 g/dL (31.6-35.5); Mean Corpuscular Hemoglobin 29.9 pg (28.0-33.3); Mean Corpuscular Volume 93.1 fL (83.0-100.0); Mean Platelet Volume 11.9 fL (9.4-12.4); Nucleated Red Blood Cells 0.3 /100 WBC (0); Platelet Count 156 K/mcL (140-400); Red Blood Count 3.48 M/mcL (4.19-5.50)
[2016-12-22 06:46] LABS: BUN/Creatinine Ratio 18 (6-26); Blood Urea Nitrogen 22 mg/dL (8-26); Calcium 8.5 mg/dL (8.6-10.8); Carbon Dioxide 29 mEq/L (19-29); Chloride 108 mEq/L (98-109); Glucose 111 mg/dL (70-99); Osmolality,Calculated 296 (280-300); Potassium 3.9 mEq/L (3.5-4.5); Sodium 141 mEq/L (136-145); eGFR For African Americans > 60 (> 60); eGFR For Non-African Americans 58 (> 60)
[2016-12-22 07:27] LABS: Eosinophils # 0.6 K/mcL (0.0-0.6); Lymphocytes # 0.7 K/mcL (0.6-4.6); Monocytes # 0.4 K/mcL (0.0-1.3); Neutrophils # 6.6 K/mcL (1.6-8.9); Platelet Estimate Normal (Normal)
[2016-12-22 07:28] LABS: Anisocytosis 1+ (Not Present)
[2016-12-22] MEDS: Pantoprazole 40 MG VIAL IVP SCH (07:55)
[2016-12-22] MEDS: Spironolactone 25 MG TABLET PO SCH (07:55)
[2016-12-22] MEDS: Aspirin Enteric Coated 81 MG Tablet PO SCH (07:55)
[2016-12-22] MEDS: Lactobacillus 1 EACH CAP.SPRINK PO SCH (07:56)
[2016-12-22] MEDS: Metoprolol XL (24 HR) Succ 25 MG TAB.ER.24H PO SCH (07:57)
[2016-12-22] MEDS: Cyanocobalamin (B-12) 1,000 MCG TABLET PO SCH (07:58)
[2016-12-22] MEDS: Amoxicillin/Clavulanate 500 MG TABLET PO SCH (07:58)
[2016-12-22] MEDS ORDERED: Ipratropium/Albuterol Neb 3 ML IH PRN (08:59)
[2016-12-22] MEDS ORDERED: Ipratropium/Albuterol Neb 3 ML ONE (09:13)
[2016-12-22] MEDS ORDERED: Furosemide 20 MG/2 ML VIAL IVP ONE (10:05)
[2016-12-22] MEDS ORDERED: Vancomycin 1,000 MG in D5% in Water 250 ML IVPB SCH ×2 (12:00→13:00)
[2016-12-22 12:15] LABS: ABG Base Excess 1.8 mEq/L (-2.0 to 3.0); ABG HCO3 25.6 mEQ/L (21-27); ABG Oxygen Saturation 98 % (95-98); ABG PCO2 36 mmHg (35-45); ABG PH 7.46 pH Units (7.32-7.45); ABG PO2 95 mmHg (85-104); ABG TCO2 26.7 mEq/L (20-26); Blood Gas FiO2 28 %
[2016-12-22 12:36] LABS: Hematocrit 32.4 % (37.5-50.1); Hemoglobin 10.3 g/dL (12.9-16.9); Immature Platelets 6.2 % (1.1-6.1); Mean Corpuscular HGB Conc 31.8 g/dL (31.6-35.5); Mean Corpuscular Hemoglobin 29.8 pg (28.0-33.3); Mean Corpuscular Volume 93.6 fL (83.0-100.0); Mean Platelet Volume 11.7 fL (9.4-12.4); Platelet Count 151 K/mcL (140-400); Red Blood Count 3.46 M/mcL (4.19-5.50); Red Cell Distribution Width 23.9 % (11.5-14.5)
[2016-12-22 12:48] LABS: Alanine Aminotransferase 38 Units/L (0-55); Albumin 2.7 g/dL (3.5-5.0); Albumin/Globulin Ratio 0.7 (1.1-2.2); Alkaline Phosphatase 136 Units/L (38-126); Aspartate Amino Transferase 73 Units/L (5-34); BUN/Creatinine Ratio 17 (6-26); Blood Urea Nitrogen 20 mg/dL (8-26); Calcium 8.5 mg/dL (8.6-10.8); Carbon Dioxide 28 mEq/L (19-29); Chloride 108 mEq/L (98-109); Globulin 3.7 g/dL (2.4-3.5); Glucose 132 mg/dL (70-99); Osmolality,Calculated 296 (280-300); Potassium 3.5 mEq/L (3.5-4.5); Sodium 141 mEq/L (136-145); Total Protein 6.4 g/dL (6.0-8.3); eGFR For African Americans > 60 (> 60); eGFR For Non-African Americans 57 (> 60)
[2016-12-22] MEDS ORDERED: Cefepime HCl 1,000 MG in D5% in Water (Mini-Bag+) 100 ML IVPB SCH (13:00)
[2016-12-22 13:04] LABS: Eosinophils # 0.4 K/mcL (0.0-0.6); Lymphocytes # 1.9 K/mcL (0.6-4.6); Monocytes # 0.3 K/mcL (0.0-1.3); Neutrophils # 4.4 K/mcL (1.6-8.9); Platelet Estimate Normal (Normal)
[2016-12-22 13:05] LABS: Anisocytosis 1+ (Not Present)
[2016-12-22 13:11] LABS: Thyroid Stimulating Hormone 10.66 mcIU/mL (0.350-4.840); Triiodothyronine (T3) Free 1.47 pg/mL (1.71-3.71)
--- NOTE | 2016-12-22 15:08 | Internal Med Progress Note ---
Date of Encounter: 12/22/16 Time of Encounter: 10:00 - Assessment and plan (1) Encephalopathy acute Current Visit: No Status: Resolved Assessment and plan: Most likely due to UTI. We will continue antibiotic and IV fluid. Closely monitor patient. Seem improved to his baseline. 12/22: worsen mental status, improved after lasix use. Cont close monitoring. (2) CVA, old, cognitive deficits Current Visit: No Status: Chronic Assessment and plan: History of CVA. Continue antiplatelet and statin. (3) Hypertension Current Visit: Yes Status: Chronic Assessment and plan: Continue home medications. BP is stable. Qualifiers: Hypertension type: essential hypertension Qualified Code(s): I10 - Essential (primary) hypertension (4) Coronary artery disease Current Visit: No Status: Chronic Assessment and plan: Stable. Continue aspirin and statin. Add Beta joe. Qualifiers: Coronary Disease-Associated Artery/Lesion type: [place] artery [place] vs. transplanted heart: [place] heart Associated angina: without angina Qualified Code(s): I25.10 - Atherosclerotic heart disease of [place] coronary artery without angina pectoris (5) Anemia Current Visit: Yes Status: Chronic Assessment and plan: Chronic anemia. Hemoglobin level is stable. Anemia work up suggest anemia due to chronic disease, possibly due to CKD. - Patient has positive guaiac test in emergency room, hemoglobin remain stable x 3 days. No further test warranted. - Pt also has Vit B12 deficiency, will give supplement. Qualifiers: Anemia type: due to chronic kidney disease Chronic kidney disease stage: stage 3 (moderate) Qualified Code(s): N18.3 - Chronic kidney disease, stage 3 (moderate); D63.1 - Anemia in chronic kidney disease (6) UTI (urinary tract infection) Current Visit: Yes Status: Acute Assessment and plan: Urine culture positive. Switch to po amoxicillin per sensitivity. Qualifiers: Urinary tract infection type: site unspecified Hematuria presence: with hematuria Qualified Code(s): N39.0 - Urinary tract infection, site not specified; R31.9 - Hematuria, unspecified (7) Generalized weakness Current Visit: No Status: Acute Assessment and plan: Management as above (8) DVT prophylaxis Current Visit: Yes Status: Acute Assessment and plan: EPCD, no anticoagulations because of positive guaiac test. (9) Thyroid disease Current Visit: Yes Status: Chronic Assessment and plan: Hypothyroidism. Continue home medications (10) Vitamin B 12 deficiency Current Visit: Yes Status: Acute Assessment and plan: Will give pt supplement. - Time Spent With Patient 25 - 35 minutes - Subjective Interval history: Patient is a 86-year-old male admitted for altered mental status. Patient was found UTI. Past medical history is significant for dementia, history of CVA, hypertension, CAD. I saw and examined the patient. Pt had worsen mental status today. Very difficult to wake up. Pt has cough with sputums. CT head and CXR done. CXR shows CHF with pulmonary congestion. Lasix ordered. I also concern of early pneumonia so Vanco and cefepime ordered and I transfered pt to . However, pt' s condition has improved after lasix use. D/C abx. ABG CBC and CMP unremarkable. - Constitutional Vitals: Temp Pulse Resp BP Pulse Ox 97.6 F 77 16 136/92 98 12/22/16 13:05 12/22/16 13:05 12/22/16 13:05 12/22/16 13:05 12/22/16 13:05 General appearance: Present: A&O X 1, no acute distress, answers questions appropriately - Head Head exam: Present: atraumatic, normocephalic - Eye Eye exam: Present: PERRL, conjuntiva pink, sclera anicteric Pupils: Present: PERRL - Neck Neck exam general surgery: Present: supple, trachea midline. Absent: lymphadenopathy - Respiratory Respiratory exam: Present: CTAB. Absent: accessory muscle use, rales, rhonchi, wheezes - Cardiovascular Cardiovascular exam: Present: RRR, +S1, +S2. Absent: diastolic murmur, gallop, rubs, systolic murmur - GI/Abdominal GI/Abdominal exam: Present: normal bowel sounds, soft, no peritoneal signs. Absent: distended, tenderness - Extremities Exam Extremities exam: Present: warm, radial pulses palpable and symetrical. Absent : calf tenderness, cyanotic, pedal edema - Neurological Exam Neurological exam: Present: CN II-XII intact, oriented X3, no focal deficits. Absent: pronater drift, facial droop, speech deficit - Skin Skin exam: Present: dry, intact Internal Medicine: Result - Labs CBC & Chem 7: 12/22/16 12:12 12/22/16 12:12 Labs: Short CBC 12/22/16 12/22/16 Range/Units 06:10 12:12 WBC 9.1 7.1 (4.3-11.1) K/mcL Hgb 10.4 L 10.3 L (12.9-16.9) g/dL Hct 32.4 L 32.4 L (37.5-50.1) % Plt Count 156 151 (140-400) K/mcL Neutrophils # 6.6 4.4 (1.6-8.9) K/mcL BMP 12/22/16 12/22/16 06:10 12:12 Sodium 141 141 Potassium 3.9 3.5 Chloride 108 108 Carbon Dioxide 29 28 BUN 22 D 20 Creatinine 1.19 1.20 Glucose 111 H 132 H Calcium 8.5 L 8.5 L Liver Function 12/22/16 Range/Units 12:12 Total Bilirubin 1.0 (0.2-1.2) mg/dL AST 73 H (5-34) Units/L ALT 38 (0-55) Units/L Alkaline Phosphatase 136 H (38-126) Units/L Albumin 2.7 L (3.5-5.0) g/dL - ABG Interpretation Interpretation: ABG interpreted by mi ABG results: ABG ABG pH 7.46 pH Units (7.32-7.45) H 12/22/16 12:00 ABG pCO2 36 mmHg (35-45) 12/22/16 12:00 ABG pO2 95 mmHg (85-104) 12/22/16 12:00 ABG O2 Saturation 98 % (95-98) 12/22/16 12:00 PT/INR, D-dimer PT 13.3 Seconds (9.4-12.1) H 12/19/16 08:39 Interpretation: normal - Impressions Impressions Head CT 12/22/16 09:02 IMPRESSION: Stable exam. No acute intracranial abnormality. Encephalomalacia in the anterior right temporal lobe and inferior left frontal lobe, likely related to small old infarctions, stable. Mild parenchymal volume loss. 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 Moderate chronic microvascular disease. D/ / Montrell Haney MD / Montrell Haney MD Interpreting Provider: Montrell Haney MD Chest X-Ray 12/22/16 09:06 IMPRESSION: CHF with moderate left pleural effusion and basilar volume loss. D/ / Jay Butler MD / Jay Butler MD Interpreting Provider: Jay Butler MD - VTE Documentation of Mechanical Device: Intermittent pneumatic compression device Consult Discharge Plan - Plan Referrals: Edy Rizzo MD [Primary Care Provider] -
[2016-12-22] MEDS: Amoxicillin 250 MG CHEWABLE TABLET PO SCH ×2 (21:22→21:26)
[2016-12-23 00:58] LABS: Basophils # 0.1 K/mcL (0.0-0.2); Hematocrit 29.8 % (37.5-50.1); Hemoglobin 9.8 g/dL (12.9-16.9); Mean Corpuscular HGB Conc 32.9 g/dL (31.6-35.5); Mean Corpuscular Hemoglobin 30.4 pg (28.0-33.3); Mean Corpuscular Volume 92.5 fL (83.0-100.0); Mean Platelet Volume 11.1 fL (9.4-12.4); Nucleated Red Blood Cells 0.4 /100 WBC (0); Platelet Count 152 K/mcL (140-400); Red Blood Count 3.22 M/mcL (4.19-5.50); Red Cell Distribution Width 23.9 % (11.5-14.5)
[2016-12-23 01:14] LABS: BUN/Creatinine Ratio 17 (6-26); Blood Urea Nitrogen 22 mg/dL (8-26); Calcium 8.5 mg/dL (8.6-10.8); Carbon Dioxide 27 mEq/L (19-29); Chloride 108 mEq/L (98-109); Glucose 97 mg/dL (70-99); Osmolality,Calculated 297 (280-300); Potassium 3.9 mEq/L (3.5-4.5); Sodium 142 mEq/L (136-145); eGFR For African Americans > 60 (> 60); eGFR For Non-African Americans 52 (> 60)
[2016-12-23 01:35] LABS: Anisocytosis 3+ (Not Present); Eosinophils # 0.1 K/mcL (0.0-0.6); Lymphocytes # 1.5 K/mcL (0.6-4.6); Monocytes # 0.4 K/mcL (0.0-1.3); Neutrophils # 3.9 K/mcL (1.6-8.9)
[2016-12-23 01:36] LABS: Large Platelets Present (Not Present); Macrocytosis Present (Not Present); Microcytosis Present (Not Present); Platelet Estimate Normal (Normal); Reactive Lymphocytes Present (Not Present)
[2016-12-23] MEDS: Aspirin Enteric Coated 81 MG Tablet PO SCH (08:32)
[2016-12-23] MEDS: Lactobacillus 1 EACH CAP.SPRINK PO SCH (08:32)
[2016-12-23] MEDS: Spironolactone 25 MG TABLET PO SCH (08:32)
[2016-12-23] MEDS: Cyanocobalamin (B-12) 1,000 MCG TABLET PO SCH (08:32)
[2016-12-23] MEDS: Metoprolol XL (24 HR) Succ 25 MG TAB.ER.24H PO SCH (08:32)
[2016-12-23] MEDS: Amoxicillin 250 MG CHEWABLE TABLET PO SCH (08:32)
[2016-12-23] MEDS: Pantoprazole 40 MG VIAL IVP SCH (08:33)
--- NOTE | 2016-12-23 11:16 | Discharge Summary ---
Date of Encounter: 12/23/16 Time of Encounter: 09:00 - Discharge Diagnosis (1) Encephalopathy acute Priority: Primary Status: Resolved (2) CVA, old, cognitive deficits Priority: Secondary Status: Chronic (3) Hypertension Priority: Secondary Status: Chronic Qualifiers: Hypertension type: essential hypertension Qualified Code(s): I10 - Essential (primary) hypertension (4) Coronary artery disease Priority: Secondary Status: Chronic Qualifiers: Coronary Disease-Associated Artery/Lesion type: [place] artery [place] vs. transplanted heart: [place] heart Associated angina: without angina Qualified Code(s): I25.10 - Atherosclerotic heart disease of [place] coronary artery without angina pectoris (5) Anemia Priority: Secondary Status: Chronic Qualifiers: Anemia type: due to chronic kidney disease Chronic kidney disease stage: stage 3 (moderate) Qualified Code(s): N18.3 - Chronic kidney disease, stage 3 (moderate); D63.1 - Anemia in chronic kidney disease (6) UTI (urinary tract infection) Priority: Primary Status: Acute Qualifiers: Urinary tract infection type: site unspecified Hematuria presence: with hematuria Qualified Code(s): N39.0 - Urinary tract infection, site not specified; R31.9 - Hematuria, unspecified (7) Generalized weakness Priority: Primary Status: Acute (8) DVT prophylaxis Priority: Secondary Status: Acute (9) Thyroid disease Priority: Secondary Status: Chronic (10) Vitamin B 12 deficiency Priority: Primary Status: Acute - Discharge Medications Prescriptions: Amoxicillin [Amoxil] 250 mg PO TID #9 Cyanocobalamin (B-12) [Vitamin B12] 1,000 mcg PO DAILY #30 tab Metoprolol XL (24 HR) Succ [Toprol Xl] 25 mg PO DAILY #30 Home Medications: Aspirin [Adult Low Dose Aspirin EC] 81 mg PO DAILY 06/19/15 [History] Spironolactone [Aldactone] 12.5 mg PO DAILY 06/19/15 [History] Lactobacillus Acidophilus [Probiotic Gold Acidophilus] 1 each PO DAILY #30 capsule 01/13/16 [Rx] Atorvastatin [Lipitor] 40 mg PO HS 12/19/16 [History] Levothyroxine [Synthroid] 100 mcg PO 0630 12/19/16 [History] Loperamide HCl [Imodium A-D] 4 mg PO BID 12/19/16 [History] Melatonin 10 mg PO HS PRN 12/19/16 [History] Memantine HCl 10 mg PO DAILY 12/19/16 [History] Tamsulosin [Flomax] 0.4 mg PO DAILY 12/19/16 [History] Amoxicillin [Amoxil] 250 mg PO TID #9 12/23/16 [Rx] Cyanocobalamin (B-12) [Vitamin B12] 1,000 mcg PO DAILY #30 tab 12/23/16 [Rx] Metoprolol XL (24 HR) Succ [Toprol Xl] 25 mg PO DAILY #30 12/23/16 [Rx] Allergies/Adverse Reactions: Allergies No Known Allergies Allergy (Verified 12/19/16 10:31) Procedures/tests Complete & Pending: Procedures Performed prior 72 hours Category Date Time Status CT head/brain wo con [CT] Stat Cat Scan 12/22/16 09:02 Completed - Notes to Outpatient Provider 1. Urine culture positive, please continue amoxicillin 250 mg 3 times a day for 3 more days. 2. Home medication change: Add metoprolol XL 25 mg by mouth daily because of history of CAD and relatively high heart rate. Add vitamin B12 1000 mg daily because of vitamin B12 deficiency (144 pg/mL). Date of admission: 12/19/16 11:21 Primary care physician: Edy Rizzo MD Consults: 12/19/16 11:51 Consult to Occupational Therapy [CONS] Routine Comment: Evaluate, develop and implement POC Reason for Consult: Patient had fall and needs assessed for safety in returning home post-discharge. Consult to Physical Therapy [CONS] Routine Comment: Evaluate, develop and implement POC Reason for Consult: Patient had fall and needs assessed for safety in returning home post-discharge. 12/22/16 11:23 Consult to Solid Plasterer [CONS] Routine Reason for SW Consult: D/C planning Discharging clinician: Jeimy Armijo Anticipated date of discharge: 12/23/16 - Patient Status Disposition: Home Health Service Condition: Good Functional capacity at discharge: uses cane/walker Overall status at discharge: patient is back to baseline - Discharge Instructions Follow Up With: EDY RIZZO [Other] - 01/04/17 1:15 pm (Dr. Borrego new office is on [facility] , beside of [facility]. ) - Diet and Activity Activity: as per physical therapy Diet: low fat, low cholesterol, low salt diet Interval History: Mr. Smith is a 86 year old male who presents from the ED with chief complaint of fall and altered mental status. Patient is currently A& O x1 and does not answer questions appropriately, so information taken from family as well as patient. Patient's family states that he has been "out of sorts" all weekend and more confused than usual. They report that the patient does shows signs of mild dementia occasionally but this is worse than his usual. They also state that he has sporadic diarrhea and a history of UTIs. The family states that the patient uses a cane and is able to ambulate well usually. CT of the cervical spine without contrast today shows moderate multilevel degenerative disc disease and facet arthropathy as well as left subclavian pacemaker which would preclude MRI. Otherwise, no acute abnormality of the cervical spine. Single view CXR today shows left basilar airspace disease likely result representing atelectasis. Single view excimer of the pelvis today shows no acute osseous abnormality and moderate osteoarthritis of the bilateral hips. CT of head without contrast today shows no acute intracranial abnormality. Patient has a medical history of arthritis, CAD, HLD, HTN, osteoporosis, thyroid disease, and TIA. Patient's original medical history from ED states history of CVA which family denies. Patient currently has pacemaker/AICD and history of heart catheterization with stent placement. Patient also had carotid endarterectomy. Patient is a moderate risk for neurological decline aced on current symptoms and history of UTI and will be placed as inpatient status with continuous cardiac telemetry due to current tachycardia on admission to ED, supplemental O2 with continuous SPO2 monitoring, IV Rocephin 1,000 mg daily, and safety precautions for falls/up with assist. Urine culture ordered stat. Patient has history of anemia and chronically low Hgb and Hct so follow-up labs to monitor H /H ordered. Patient's urinalysis is positive for blood and fecal occult stool is positive as well. Patient was previously typed and screened and H/H and signs of active bleeding to be monitored closely. Patient appears mildly dehydrated and will receive IV 0.9 NS at 75 mL/HR based on patient's current GFR of 48. Hospital course: Mr. Smith is a 86 year old male admitted for UTI, dehydration, and altered mental status. Patient was treated with antibiotics, IV fluid. His condition has improved. Urine culture shows enterococcus faecalis, sensitive to ampicillin. Patient has 1 episode of confusion yesterday, improved after treatment. Patient is more awake alert today. PTOT saw patient, recommended ECF discharge. However, patient's family insist to take patient home with home health. Patient was discharged home with by mouth amoxicillin, home health has been arranged. I saw and examined the patient. He is awake alert, mental status is about at his baseline per patient's son. Vitals are stable. Patient is ready to discharge home. - Time Spent with Patient Total time spent providing and/or coordinating discharge services: 25 min Less than 30 minutes - Constitutional Vitals: Temp Pulse Resp BP Pulse Ox 97.6 F 76 18 121/77 99 12/23/16 07:27 12/23/16 08:15 12/23/16 07:27 12/23/16 07:27 12/23/16 07:27 General appearance: Present: A&O X 1, no acute distress, answers questions appropriately - Head Head exam: Present: atraumatic, normocephalic - Eye Eye exam: Present: PERRL, conjuntiva pink, sclera anicteric Pupils: Present: PERRL - Neck Neck exam general surgery: Present: supple, trachea midline. Absent: lymphadenopathy - Respiratory Respiratory exam: Present: CTAB. Absent: accessory muscle use, rales, rhonchi, wheezes - Cardiovascular Cardiovascular exam: Present: RRR, +S1, +S2. Absent: diastolic murmur, gallop, rubs, systolic murmur - GI/Abdominal GI/Abdominal exam: Present: normal bowel sounds, soft, no peritoneal signs. Absent: distended, tenderness - Extremities Exam Extremities exam: Present: warm, radial pulses palpable and symetrical. Absent : calf tenderness, cyanotic, pedal edema - Neurological Exam Neurological exam: Present: CN II-XII intact, oriented X3, no focal deficits. Absent: pronater drift, facial droop, speech deficit - Skin Skin exam: Present: dry, intact - VTE Documentation of Mechanical Device: Intermittent pneumatic compression device
--- NOTE | 2016-12-23 11:30 | Physician Discharge Referral ---
Home Health/Hosp Referral Info Transfer to: Home Health Provider in Charge Post Discharge: PCP - Diagnosis (1) Encephalopathy acute Priority: Primary Status: Resolved (2) CVA, old, cognitive deficits Priority: Secondary Status: Chronic (3) Hypertension Priority: Secondary Status: Chronic (4) Coronary artery disease Priority: Secondary Status: Chronic (5) Anemia Priority: Secondary Status: Chronic (6) UTI (urinary tract infection) Status: Acute (7) Generalized weakness Priority: Primary Status: Acute (8) DVT prophylaxis Priority: Secondary Status: Acute (9) Thyroid disease Priority: Secondary Status: Chronic (10) Vitamin B 12 deficiency Priority: Primary Status: Acute - Respiratory Orders Smoking Cessation: Smoking cessation has been advised. For more information, call the [place] Tobacco Quit Line at 8-429-WBRU-NOW. - Diet/Nutrition Diet/Nutrition Orders: Cardiac - Services Needed Following services are medically necessary services: Nursing, Home Health Aide, Physical Therapy, Occupational Therapy - Transfer Medications Prescriptions: Amoxicillin [Amoxil] 250 mg PO TID #9 Cyanocobalamin (B-12) [Vitamin B12] 1,000 mcg PO DAILY #30 tab Metoprolol XL (24 HR) Succ [Toprol Xl] 25 mg PO DAILY #30 Home Medications: Aspirin [Adult Low Dose Aspirin EC] 81 mg PO DAILY 06/19/15 [History] Spironolactone [Aldactone] 12.5 mg PO DAILY 06/19/15 [History] Lactobacillus Acidophilus [Probiotic Gold Acidophilus] 1 each PO DAILY #30 capsule 01/13/16 [Rx] Atorvastatin [Lipitor] 40 mg PO HS 12/19/16 [History] Levothyroxine [Synthroid] 100 mcg PO 0630 12/19/16 [History] Loperamide HCl [Imodium A-D] 4 mg PO BID 12/19/16 [History] Melatonin 10 mg PO HS PRN 12/19/16 [History] Memantine HCl 10 mg PO DAILY 12/19/16 [History] Tamsulosin [Flomax] 0.4 mg PO DAILY 12/19/16 [History] Amoxicillin [Amoxil] 250 mg PO TID #9 12/23/16 [Rx] Cyanocobalamin (B-12) [Vitamin B12] 1,000 mcg PO DAILY #30 tab 12/23/16 [Rx] Metoprolol XL (24 HR) Succ [Toprol Xl] 25 mg PO DAILY #30 12/23/16 [Rx] Allergies/Adverse Reactions: Allergies No Known Allergies Allergy (Verified 12/19/16 10:31) Certification: Further, I certify that my clinical findings support that this patient is homebound (i.e. absences from home require considerable and taxing effort and are for medical reasons or faith services or infrequently or short duration when for other reasons) because: Homebound Reason: Patient requires assistance of a person or device to safely leave home Attestation: My signature below is to certify that this patient is under my care and that I, or nurse practitioner, or a physician's assistant center director working with me, has a face-to -face encounter with this patient.
[2016-12-23 11:33] VITALS: BP 109/62
== END 2016-12-23 13:53 | disposition home health service (06) ==
LOC: EMEROO 07:42 → 3BNU 07:42 → SUATTDRO 13:15 → 2NNU 12-22 13:11
PROVIDERS: ADMIT Internal Medicine; ATTEND Internal Medicine

== ENCOUNTER 2017-01-02 17:20 | Inpatient (IN) ==
[2017-01-02] MEDS ORDERED: 0.9 % Sodium Chloride 1,000 ML IVC ONE (17:32)
--- NOTE | 2017-01-02 18:10 | Emergency Department Note ---
Disposition Clinical Impression: Encephalopathy, Delirium due to general medical condition, Pleural effusion UTI (urinary tract infection) Qualifiers: Qualified Code(s): N39.0 - Disposition: Admitted As Inpatient Condition: Good Time of Disposition: 19:20 Altered Mental Status HPI - General Chief Complaint: ED Altered Mental Status Stated Complaint: AMS Time Seen by Provider: 01/02/17 18:09 Source: patient, EMS Mode of arrival: EMS Limitations: altered mental status Nursing Notes Reviewed: Yes Vital Signs Reviewed: Yes - History of Present Illness HPI Narrative: 78-year-old male HTN,HLD,CAD, presents with altered mental state, Patient presents from home history of recent urinary tract infections, was prescribed amoxicillin at home. His family called EMS today, he was acting differently, he was having trouble with balance, same strange things like he was from [facility] which he is not. When asked, the patient is not oriented to place or time, with the history is obtained from EMS as he is a very limited historian. There is no focal weakness or slurred speech, he was unable to be tested as the patient cannot ambulate. MD complaint: altered mental status Onset (ago): hour(s) Pain Severity: mild Associated symptoms: Reports: denies other symptoms. Denies: chest pain, cough , diaphoresis, fever, headaches, loss of appetite - Related Data Home Medications Medication Instructions Recorded Confirmed Aspirin [Adult Low Dose Aspirin EC] 81 mg PO DAILY 06/19/15 01/02/17 Spironolactone [Aldactone] 12.5 mg PO DAILY 06/19/15 01/02/17 Atorvastatin [Lipitor] 40 mg PO HS 12/19/16 01/02/17 Levothyroxine [Synthroid] 100 mcg PO 0630 12/19/16 01/02/17 Loperamide HCl [Imodium A-D] 4 mg PO BID 12/19/16 01/02/17 Melatonin 10 mg PO HS PRN 12/19/16 01/02/17 Memantine HCl 10 mg PO BID 12/19/16 01/02/17 Tamsulosin [Flomax] 0.4 mg PO DAILY 12/19/16 01/02/17 Previous Rx's Medication Instructions Recorded Lactobacillus Acidophilus 1 each PO DAILY #30 capsule 01/13/16 [Probiotic Gold Acidophilus] Cyanocobalamin (B-12) [Vitamin B12] 1,000 mcg PO DAILY #30 tab 12/23/16 Metoprolol XL (24 HR) Succ [Toprol 25 mg PO DAILY #30 12/23/16 Xl] Allergies Allergy/AdvReac Type Severity Reaction Status Date / Time No Known Allergies Allergy Verified 12/19/16 10:31 Limitations: ROS unobtainable due to patients medical condition Past Medical History - Past Medical History Attestation: Yes The following information was validated with the patient. Source: old records reviewed, obtained from family Medical history: Reports: arthritis, coronary artery disease, CVA, dementia, hyperlipidemia, hypertension, osteoporosis, thyroid disease, TIA Surgical history: Reports: carotid endarterectomy, knee replacement, pacemaker/ AICD Psychiatric history: Reports: no psych history - Social History Smoking Status: Former smoker Smokeless Tobacco Status: No Alcohol use: Reports: none Drug use: Reports: none Physical Exam - General Limitations: altered mental status General appearance: in no apparent distress, cachectic - Head Head exam: atraumatic, normocephalic - Eye Eye exam: Present: normal appearance, PERRL - ENT ENT exam: normal exam, normal oropharynx - Neck Neck exam: Present: normal inspection, full ROM - Chest Chest inspection: Present: normal inspection, symmetric chest wall rise - Respiratory Respiratory exam: Present: normal lung sounds bilaterally - Cardiovascular Cardiovascular exam: Present: regular rate - Abdominal Exam Abdominal exam: Present: soft, Non-Tender - Extremities Exam Extremities exam: Present: normal inspection, full ROM - Skin Skin exam: Present: other (poor skin turgor) Course Course Narrative: 78-year-old male with altered mental status, concern for UTI as he had this previously, recheck labs including blood culture lactate, urinalysis with culture, start antibiotics ceftriaxone, patient admitted to hospitalist likely given altered mental state. We have a CT scan of head chest x-ray basic lab work - Reevaluation(s) Reevaluation #1: Admitted to Dr Jesus, started on Rocephin and Ampicillin for enterococcus coverage. Time: 19:30 Vital Signs Temperature 98.1 F 01/02/17 17:22 Pulse Rate 82 01/02/17 17:22 Respiratory Rate 13 01/02/17 17:22 Blood Pressure 130/91 01/02/17 17:22 O2 Sat by Pulse Oximetry 97 01/02/17 17:22 Temperature 97.5 F L 01/03/17 10:43 Pulse Rate 61 01/03/17 10:43 Respiratory Rate 14 01/03/17 10:43 Blood Pressure 112/76 01/03/17 10:43 O2 Sat by Pulse Oximetry 98 01/03/17 10:43 Oxygen Delivery Oxygen Delivery Room Air Altered Mental Status - MDM Narrative Medical decision making narrative: 78-year-old male with altered mental status, suspect delirium and acute encephalopathy in the setting of urinary tract infection, restarted on ceftriaxone and ampicillin, patient is medically stable at the time of ED disposition admitted to the hospitalist service - Differential Diagnosis Likely: hypoglycemia, subarachnoid hemorrhage, sepsis - Medical Records Medical records reviewed: Yes I reviewed the patient's medical records. - Lab Data Lab results reviewed: Yes I reviewed the patient's lab results. Result diagrams: 01/03/17 04:11 01/03/17 04:11 Lab Results 01/02/17 01/02/17 01/02/17 Range/Units 17:44 17:44 18:07 WBC 11.5 H (4.3-11.1) K/mcL RBC 3.63 L (4.19-5.50) M/mcL Hgb 10.8 L (12.9-16.9) g/dL Hct 34.0 L (37.5-50.1) % MCV 93.7 (83.0-100.0) fL MCH 29.8 (28.0-33.3) pg MCHC 31.8 (31.6-35.5) g/dL RDW 24.5 H (11.5-14.5) % Plt Count 206 (140-400) K/mcL MPV 12.4 (9.4-12.4) fL Immature Gran % 1.6 (0-4) % Seg Neutrophils % 84.8 % Lymphocytes % 5.8 % Monocytes % 6.6 % Eosinophils % 0.3 % Basophils % 0.9 % Neutrophils # 9.8 H (1.6-8.9) K/mcL Lymphocytes # 0.7 (0.6-4.6) K/mcL Monocytes # 0.8 (0.0-1.3) K/mcL Eosinophils # 0.0 (0.0-0.6) K/mcL Basophils # 0.1 (0.0-0.2) K/mcL Platelet Estimate Normal (Normal) Anisocytosis 3+ A (Not Present) PT (9.4-12.1) Seconds INR APTT (26.0-36.0) Seconds Sodium (136-145) mEq/L Potassium (3.5-4.5) mEq/L Chloride (98-109) mEq/L Carbon Dioxide (19-29) mEq/L BUN (8-26) mg/dL Creatinine (0.72-1.25) mg/dL Est GFR ( Amer) (> 60) Est GFR (Non-Af Amer) (> 60) BUN/Creatinine Ratio (6-26) Glucose (70-99) mg/dL POC Glucose (58-89) Calculated Osmolality (280-300) Calcium (8.6-10.8) mg/dL Total Bilirubin (0.2-1.2) mg/dL Direct Bilirubin (0.0-0.5) mg/dL Indirect Bilirubin (0.0-1.2) mg/dL AST (5-34) Units/L ALT (0-55) Units/L Alkaline Phosphatase (38-126) Units/L Ammonia (18-72) mcmol/L Creatine Kinase (30-200) Units/L Troponin I (0-0.03) ng/mL Serum Total Protein (6.0-8.3) g/dL Albumin (3.5-5.0) g/dL Globulin (2.4-3.5) g/dL Albumin/Globulin Ratio (1.1-2.2) Urine Color Yellow (Yellow) Urine Clarity Clear (Clear) Urine pH 6.5 (5.0-8.0) pH Units Ur Specific [place] 1.017 (1.010-1.025) Urine Protein 30 H (Neg-Trace) mg/dL Urine Glucose (UA) Normal (Normal) mg/dL Urine Ketones Negative (Negative) mg/dL Urine Blood Large H (Negative) Urine Nitrite Negative (Negative) Urine Bilirubin Negative (Negative) Urine Urobilinogen Normal (Normal) mg/dL Ur Leukocyte Esterase Negative (Negative) Urine Microscopic RBC 50-100 H (0-3) per hpf Urine Microscopic WBC 5-15 H (0-3) per hpf Ur Squamous Epith Cells Many H (None-Few) per lpf Urine Bacteria None Seen (None-Few) per hpf Hyaline Casts None Seen (None-Few) per lpf Ur Culture Indicated? YES A (NO) Urine Opiates Screen Negative (Xqiabo=590) ng/mL Ur Barbiturates Screen Negative (Dldvhl=290) ng/mL Ur Phencyclidine Scrn Negative (Cutoff=25) ng/mL Ur Amphetamines Screen Negative (Spqyum=9803) ng/mL U Benzodiazepines Scrn Negative (Oowbsh=147) ng/mL Urine Cocaine Screen Negative (Cutoff= 300) ng/mL U Marijuana (THC) Screen Negative (Cutoff = 50) ng/mL Ethyl Alcohol (0-10) mg/dL 01/02/17 01/02/17 01/02/17 Range/Units 18:07 18:07 18:07 WBC (4.3-11.1) K/mcL RBC (4.19-5.50) M/mcL Hgb (12.9-16.9) g/dL Hct (37.5-50.1) % MCV (83.0-100.0) fL MCH (28.0-33.3) pg MCHC (31.6-35.5) g/dL RDW (11.5-14.5) % Plt Count (140-400) K/mcL MPV (9.4-12.4) fL Immature Gran % (0-4) % Seg Neutrophils % % Lymphocytes % % Monocytes % % Eosinophils % % Basophils % % Neutrophils # (1.6-8.9) K/mcL Lymphocytes # (0.6-4.6) K/mcL Monocytes # (0.0-1.3) K/mcL Eosinophils # (0.0-0.6) K/mcL Basophils # (0.0-0.2) K/mcL Platelet Estimate (Normal) Anisocytosis (Not Present) PT 13.9 H (9.4-12.1) Seconds INR 1.3 APTT 28.9 (26.0-36.0) Seconds Sodium 139 (136-145) mEq/L Potassium 4.8 H (3.5-4.5) mEq/L Chloride 103 (98-109) mEq/L Carbon Dioxide 26 (19-29) mEq/L BUN 36 H (8-26) mg/dL Creatinine 1.48 H (0.72-1.25) mg/dL Est GFR ( Amer) 54 L (> 60) Est GFR (Non-Af Amer) 45 L (> 60) BUN/Creatinine Ratio 24 (6-26) Glucose 110 H (70-99) mg/dL POC Glucose (58-89) Calculated Osmolality 297 (280-300) Calcium 8.8 (8.6-10.8) mg/dL Total Bilirubin 1.4 H (0.2-1.2) mg/dL Direct Bilirubin 0.6 H (0.0-0.5) mg/dL Indirect Bilirubin 0.8 (0.0-1.2) mg/dL AST 27 (5-34) Units/L ALT 18 (0-55) Units/L Alkaline Phosphatase 149 H (38-126) Units/L Ammonia 25 (18-72) mcmol/L Creatine Kinase 64 (30-200) Units/L Troponin I (0-0.03) ng/mL Serum Total Protein 7.5 (6.0-8.3) g/dL Albumin 3.3 L (3.5-5.0) g/dL Globulin 4.2 H (2.4-3.5) g/dL Albumin/Globulin Ratio 0.8 L (1.1-2.2) Urine Color (Yellow) Urine Clarity (Clear) Urine pH (5.0-8.0) pH Units Ur Specific [place] (1.010-1.025) Urine Protein (Neg-Trace) mg/dL Urine Glucose (UA) (Normal) mg/dL Urine Ketones (Negative) mg/dL Urine Blood (Negative) Urine Nitrite (Negative) Urine Bilirubin (Negative) Urine Urobilinogen (Normal) mg/dL Ur Leukocyte Esterase (Negative) Urine Microscopic RBC (0-3) per hpf Urine Microscopic WBC (0-3) per hpf Ur Squamous Epith Cells (None-Few) per lpf Urine Bacteria (None-Few) per hpf Hyaline Casts (None-Few) per lpf Ur Culture Indicated? (NO) Urine Opiates Screen (Lzunru=200) ng/mL Ur Barbiturates Screen (Atcipz=519) ng/mL Ur Phencyclidine Scrn (Cutoff=25) ng/mL Ur Amphetamines Screen (Tdxlqu=1832) ng/mL U Benzodiazepines Scrn (Jglyho=075) ng/mL Urine Cocaine Screen (Cutoff= 300) ng/mL U Marijuana (THC) Screen (Cutoff = 50) ng/mL Ethyl Alcohol < 10 (0-10) mg/dL 01/02/17 01/02/17 Range/Units 18:07 18:28 WBC (4.3-11.1) K/mcL RBC (4.19-5.50) M/mcL Hgb (12.9-16.9) g/dL Hct (37.5-50.1) % MCV (83.0-100.0) fL MCH (28.0-33.3) pg MCHC (31.6-35.5) g/dL RDW (11.5-14.5) % Plt Count (140-400) K/mcL MPV (9.4-12.4) fL Immature Gran % (0-4) % Seg Neutrophils % % Lymphocytes % % Monocytes % % Eosinophils % % Basophils % % Neutrophils # (1.6-8.9) K/mcL Lymphocytes # (0.6-4.6) K/mcL Monocytes # (0.0-1.3) K/mcL Eosinophils # (0.0-0.6) K/mcL Basophils # (0.0-0.2) K/mcL Platelet Estimate (Normal) Anisocytosis (Not Present) PT (9.4-12.1) Seconds INR APTT (26.0-36.0) Seconds Sodium (136-145) mEq/L Potassium (3.5-4.5) mEq/L Chloride (98-109) mEq/L Carbon Dioxide (19-29) mEq/L BUN (8-26) mg/dL Creatinine (0.72-1.25) mg/dL Est GFR ( Amer) (> 60) Est GFR (Non-Af Amer) (> 60) BUN/Creatinine Ratio (6-26) Glucose (70-99) mg/dL POC Glucose 101 H (58-89) Calculated Osmolality (280-300) Calcium (8.6-10.8) mg/dL Total Bilirubin (0.2-1.2) mg/dL Direct Bilirubin (0.0-0.5) mg/dL Indirect Bilirubin (0.0-1.2) mg/dL AST (5-34) Units/L ALT (0-55) Units/L Alkaline Phosphatase (38-126) Units/L Ammonia (18-72) mcmol/L Creatine Kinase (30-200) Units/L Troponin I 0.01 (0-0.03) ng/mL Serum Total Protein (6.0-8.3) g/dL Albumin (3.5-5.0) g/dL Globulin (2.4-3.5) g/dL Albumin/Globulin Ratio (1.1-2.2) Urine Color (Yellow) Urine Clarity (Clear) Urine pH (5.0-8.0) pH Units Ur Specific [place] (1.010-1.025) Urine Protein (Neg-Trace) mg/dL Urine Glucose (UA) (Normal) mg/dL Urine Ketones (Negative) mg/dL Urine Blood (Negative) Urine Nitrite (Negative) Urine Bilirubin (Negative) Urine Urobilinogen (Normal) mg/dL Ur Leukocyte Esterase (Negative) Urine Microscopic RBC (0-3) per hpf Urine Microscopic WBC (0-3) per hpf Ur Squamous Epith Cells (None-Few) per lpf Urine Bacteria (None-Few) per hpf Hyaline Casts (None-Few) per lpf Ur Culture Indicated? (NO) Urine Opiates Screen (Xliuyg=701) ng/mL Ur Barbiturates Screen (Qkwvvs=090) ng/mL Ur Phencyclidine Scrn (Cutoff=25) ng/mL Ur Amphetamines Screen (Duealp=6714) ng/mL U Benzodiazepines Scrn (Ysftez=566) ng/mL Urine Cocaine Screen (Cutoff= 300) ng/mL U Marijuana (THC) Screen (Cutoff = 50) ng/mL Ethyl Alcohol (0-10) mg/dL - Radiology Data Radiology results reviewed: Yes I reviewed the patient's radiology results. Chest X-Ray 01/02/17 17:32 IMPRESSION: Small left pleural effusion. Mild cardiomegaly without failure. D/ / Jay Butler MD / Jay Butler MD Interpreting Provider: Jay Butler MD Head CT 01/02/17 17:34 IMPRESSION: No acute intracranial abnormality. Remote infarcts, atrophy, and chronic white matter changes are similar in appearance. D/ / Ashley Hicks MD / Ashley Hicks MD Interpreting Provider: Ashley Hicks MD - EKG Data EKG attestation: Yes I reviewed and interpreted this EKG. EKG shows normal: sinus rhythm (77 bpm left axis deviation, HI 179 QRS 121 QTC [address] segment elevations or depressions.) Rhythm: NSR [place]/QRS: normal Interpretation: normal EKG - Core Measures AMI Core Measures Followed: No Attestation Statement - Attestation Attestation: I personally interviewed and examined this patient and my medical decision- making was reviewed with the Resident Physician, Dr. Bender. I agree with the documented findings, disposition and treatment plan as described except to the extent set forth below. Pt is an 86-yo wm, who presents to the ER by EMS for AMS changes. Pt arrives awake and verbally responisve, follows commands, but confused, A&O to person only. Poor historian. Family concerned as pt recently treated with amoxil for UTI, which causes frequent episodes of confusion. Worried he still had UTI causing MS changes. Pt afebrile, VSS, and in NAD on arrival. I agree with pt's PE as documented. No focal neuro deficits. Pt nonambulatory at baseline. Pt placed on CM/pulse ox, IV est, and labs drawn and sent. EKG with no acute ischemic changes. CT brain/CXR ordered. No acute abn on imaging studies for CT jackie. CXR with CM, small L plueral effusion. UA neg, and labs wnl. Trop neg. Etiology of AMS changes unclear. With pt's hx of recent UTI, and WBC's in UA, will cover for IV antibx. D/W hosp and accepted pt for admission.
[2017-01-02 18:18] LABS: Bilirubin,Urine Negative (Negative); Blood,Urine Large (Negative); Clarity,Urine Clear (Clear); Color,Urine Yellow (Yellow); Glucose,Urine (UA) Normal (Normal); Ketones,Urine Negative (Negative); Leukocyte Esterase,Urine Negative (Negative); Nitrite,Urine Negative (Negative); PH,Urine 6.5 pH Units (5.0-8.0); Protein,Urine 30 mg/dL (Neg-Trace); Specific Gravity,Urine 1.017 (1.010-1.025); Urobilinogen,Urine Normal (Normal)
[2017-01-02 18:20] LABS: Bacteria,Urine None Seen per hpf (None-Few); Hyaline Casts,Urine None Seen per lpf (None-Few); RBC,Urine 50-100 per hpf (0-3); Squamous Epithelial Cell,Urine Many per lpf (None-Few)
[2017-01-02 18:23] LABS: Basophils # 0.1 K/mcL (0.0-0.2); Basophils % 0.9 %; Eosinophils % 0.3 %; Hemoglobin 10.8 g/dL (12.9-16.9); Immature Granulocytes % 1.6 % (0-4); Lymphocytes # 0.7 K/mcL (0.6-4.6); Lymphocytes % 5.8 %; Mean Corpuscular HGB Conc 31.8 g/dL (31.6-35.5); Mean Corpuscular Hemoglobin 29.8 pg (28.0-33.3); Mean Corpuscular Volume 93.7 fL (83.0-100.0); Mean Platelet Volume 12.4 fL (9.4-12.4); Monocytes # 0.8 K/mcL (0.0-1.3); Monocytes % 6.6 %; Platelet Count 206 K/mcL (140-400); Red Blood Count 3.63 M/mcL (4.19-5.50); Red Cell Distribution Width 24.5 % (11.5-14.5); Segmented Neutrophils % 84.8 %
[2017-01-02 18:25] LABS: Amphetamine Screen,Urine Negative ng/mL (Cutoff=1000); Barbiturate Screen,Urine Negative ng/mL (Cutoff=200); Benzodiazepines Screen,Urine Negative ng/mL (Cutoff=200); Cannabinoid Screen,Urine Negative ng/mL (Cutoff = 50); Cocaine Screen,Urine Negative ng/mL (Cutoff= 300); Opiate Screen,Urine Negative ng/mL (Cutoff=300); Phencyclidine Screen,Urine Negative ng/mL (Cutoff=25)
[2017-01-02 18:25] LABS: Neutrophils # 9.8 K/mcL (1.6-8.9)
[2017-01-02 18:28] LABS: INR 1.3; Prothrombin Time 13.9 Seconds (9.4-12.1)
[2017-01-02 18:30] LABS: Activated Partial Thrombo Time 28.9 Seconds (26.0-36.0)
[2017-01-02 18:40] LABS: Alanine Aminotransferase 18 Units/L (0-55); Albumin 3.3 g/dL (3.5-5.0); Albumin/Globulin Ratio 0.8 (1.1-2.2); Alkaline Phosphatase 149 Units/L (38-126); Aspartate Amino Transferase 27 Units/L (5-34); BUN/Creatinine Ratio 24 (6-26); Bilirubin,Direct 0.6 mg/dL (0.0-0.5); Bilirubin,Indirect 0.8 mg/dL (0.0-1.2); Bilirubin,Total 1.4 mg/dL (0.2-1.2); Blood Urea Nitrogen 36 mg/dL (8-26); Calcium 8.8 mg/dL (8.6-10.8); Carbon Dioxide 26 mEq/L (19-29); Chloride 103 mEq/L (98-109); Creatine Kinase 64 Units/L (30-200); Globulin 4.2 g/dL (2.4-3.5); Glucose 110 mg/dL (70-99); Osmolality,Calculated 297 (280-300); Potassium 4.8 mEq/L (3.5-4.5); Sodium 139 mEq/L (136-145); Total Protein 7.5 g/dL (6.0-8.3); eGFR For African Americans 54 (> 60); eGFR For Non-African Americans 45 (> 60)
[2017-01-02 18:42] LABS: Ethanol < 10 mg/dL (0-10)
[2017-01-02 18:50] LABS: Anisocytosis 3+ (Not Present); Platelet Estimate Normal (Normal)
[2017-01-02] MEDS ORDERED: Azithromycin 500 MG in D5% in Water 250 ML IVPB ONE (19:18)
[2017-01-02] MEDS ORDERED: Ampicillin 2 GM in 0.9 % Sodium Chloride Mini Bag 100 ML IVPB ONE (19:26)
--- NOTE | 2017-01-02 21:21 | Internal Med History&Physical ---
Date of Encounter: 01/02/17 Time of Encounter: 21:18 Assessment and Plan (1) Urinary tract infection Current visit: Yes Status: Acute We will start the patient on unasyn according to prior culture growing enterococcus sensitive to ampicillin Qualifiers: Qualified Code(s): N39.0 - Urinary tract infection, site not specified; R31.9 - Hematuria, unspecified (2) Toxic metabolic encephalopathy Current visit: Yes Status: Acute Due to urinary tract infection. He is complaining of some headache however we have a source for the presentation which is UTI. We will think of other differentials of no improvement (3) FREDDY (acute kidney injury) Current visit: Yes Status: Acute Hydrate Internal Medicine - H&P: HPI Chief complaint: confusion History of present illness: Mr. Smith is a 86 year old male with multiple medical problems recently discharged from the hospital after enterococcus urinary tract infection on amoxicillin presents to the emergency room today with a incomplete of confusion. Szoceglt-eg-ayd is providing history. She noted that since yesterday patient is more confused lethargic week. He is usually able to know where he is noted people in the time and able to ambulate independently but was unable to do so in the past couple of days. Ivy mentioned that he only took a few days of antibiotics that to which enterococcus was sensitive. Patient has also been complaining of headache since yesterday and family tried some nonsteroidal medications without improvement. There is no fevers or chills. He has some cough but no notable sputum production. Past Med Surg Social Fam HX - Past Medical History Medical history: arthritis, coronary artery disease, CVA, dementia, hyperlipidemia, hypertension, osteoporosis, thyroid disease, TIA Psychiatric history: no psych history - Past Surgical History Surgical History: carotid endarterectomy, knee replacement, pacemaker/AICD - Social History Smoking Status: Former smoker Smokeless Tobacco Status: No Alcohol use: none Drug use: none - Family History Brother Family Member Ethnicity: Non- Living Status: Hx Family Cardiac Disorders: Yes (HI) Sister Family Member Ethnicity: Non- Living Status: Hx Family Neurologic Disorders: Yes (Dementia/Alzheimer's disease) Mother Family Member Ethnicity: Non- Living Status: Hx Family Cardiac Disorders: Yes (HI) Father Family Member Ethnicity: Non- Living Status: Hx Family Cardiac Disorders: Yes (HI) Internal Medicine - H&P: Meds Aspirin [Adult Low Dose Aspirin EC] 81 mg PO DAILY 06/19/15 [History] Spironolactone [Aldactone] 12.5 mg PO DAILY 06/19/15 [History] Lactobacillus Acidophilus [Probiotic Gold Acidophilus] 1 each PO DAILY #30 capsule 01/13/16 [Rx] Atorvastatin [Lipitor] 40 mg PO HS 12/19/16 [History] Levothyroxine [Synthroid] 100 mcg PO 0630 12/19/16 [History] Loperamide HCl [Imodium A-D] 4 mg PO BID 12/19/16 [History] Melatonin 10 mg PO HS PRN 12/19/16 [History] Memantine HCl 10 mg PO BID 12/19/16 [History] Tamsulosin [Flomax] 0.4 mg PO DAILY 12/19/16 [History] Cyanocobalamin (B-12) [Vitamin B12] 1,000 mcg PO DAILY #30 tab 12/23/16 [Rx] Metoprolol XL (24 HR) Succ [Toprol Xl] 25 mg PO DAILY #30 12/23/16 [Rx] Allergies No Known Allergies Allergy (Verified 12/19/16 10:31) All Systems PM: A 10-system review of systems was performed and is negative for pertinent findings except as documented above in the HPI. Review of systems: 10 point review of systems is negative except for HPI - Constitutional Vitals: Temp Pulse Resp BP Pulse Ox 98.1 F 90 18 106/67 96 01/02/17 17:22 01/02/17 20:36 01/02/17 21:03 01/02/17 21:03 01/02/17 20:36 Exam: Gen.: patient is lethargic. Oriented to self only cardiac: normal S1 S2 no additional sounds are murmurs chest: clear auscultation abdomen: soft nontender nondistended normal bowel sounds lower extremity lax calf muscles Neuro: no focal deficits Internal Med - H&P Results - Labs CBC & Chem 7: 01/02/17 18:07 01/02/17 18:07
[2017-01-02] MEDS: 0.9 % Sodium Chloride 1,000 ML IVC SCH (23:03)
[2017-01-03] MEDS: Ampicillin/Sulbactam 1,500 MG in 0.9 % Sodium Chloride Mini Bag 100 ML IVPB SCH ×5 (00:02→23:25)
[2017-01-03] MEDS ORDERED: Acetaminophen 325 MG TABLET PO ONE (00:27)
[2017-01-03 05:11] LABS: Basophils # 0.1 K/mcL (0.0-0.2); Basophils % 0.8 %; Eosinophils % 0.5 %; Hematocrit 29.7 % (37.5-50.1); Hemoglobin 9.4 g/dL (12.9-16.9); Immature Granulocytes % 1.6 % (0-4); Lymphocytes % 11.5 %; Mean Corpuscular HGB Conc 31.6 g/dL (31.6-35.5); Mean Corpuscular Hemoglobin 29.5 pg (28.0-33.3); Mean Corpuscular Volume 93.1 fL (83.0-100.0); Mean Platelet Volume 11.7 fL (9.4-12.4); Monocytes # 1.2 K/mcL (0.0-1.3); Monocytes % 13.6 %; Neutrophils # 6.2 K/mcL (1.6-8.9); Nucleated Red Blood Cells 0.2 /100 WBC (0); Platelet Count 172 K/mcL (140-400); Red Blood Count 3.19 M/mcL (4.19-5.50); Red Cell Distribution Width 24.6 % (11.5-14.5)
[2017-01-03 05:25] LABS: BUN/Creatinine Ratio 23 (6-26); Blood Urea Nitrogen 30 mg/dL (8-26); Calcium 7.9 mg/dL (8.6-10.8); Carbon Dioxide 25 mEq/L (19-29); Chloride 106 mEq/L (98-109); Glucose 92 mg/dL (70-99); Magnesium 1.8 mg/dL (1.6-2.6); Osmolality,Calculated 290 (280-300); Potassium 4.3 mEq/L (3.5-4.5); Sodium 137 mEq/L (136-145); eGFR For African Americans > 60 (> 60); eGFR For Non-African Americans 52 (> 60)
[2017-01-03] MEDS: *HR* Heparin 5,000 UNIT/ML VIAL SQ SCH ×2 (05:32→18:22)
[2017-01-03 05:47] LABS: Anisocytosis 2+ (Not Present); Platelet Estimate Normal (Normal); Poikilocytosis 1+ (Not Present)
[2017-01-03] MEDS: Aspirin Enteric Coated 81 MG Tablet PO SCH (08:34)
[2017-01-03] MEDS: Famotidine 20 MG/2 ML VIAL IVP SCH (08:34)
--- NOTE | 2017-01-03 09:34 | Internal Med Progress Note ---
Addendum entered and electronically signed by Tyler Hernandez DO 01/03/17 10:25 : Patient's Blood culture's came back for Gram Positive Cocci. New Assessment and Plan: Bacteremia: likely secondary to UTI. follow cultures. consider other possible sources. Expand abx coverage. Original Note: <Tyler Hernandez - Last Filed: 01/03/17 09:37> Date of Encounter: 01/03/17 Time of Encounter: 09:34 - Assessment and plan (1) UTI (urinary tract infection) Current Visit: No Status: Acute Assessment and plan: Patient was D/C'd on 12/23 with a UTI. He was D/C'd home on 3 days of amoxicillin which bug was susceptabile to. Patient has history of recurrent UTIs. Patient was started on Ceftriaxone and Azithromycin by the ED, then switched to Unasyn by admitting team. Urine Culture pending. UA not impressive. continue current abx pending culture. Qualifiers: Urinary tract infection type: site unspecified Hematuria presence: with hematuria Qualified Code(s): N39.0 - Urinary tract infection, site not specified; R31.9 - Hematuria, unspecified (2) Delirium due to general medical condition Current Visit: Yes Status: Acute Assessment and plan: Patient was AxO x3 3 on d/c on 12/23/16. Patient currently AxO 1 currently. Similar presentation last time with UTI. Likely delierium caused by toxic metabolic encephalopathy from UTI and FREDDY. Continue medical management: IV fluids, Abx. (3) Toxic metabolic encephalopathy Current Visit: Yes Status: Acute Assessment and plan: likely secondary to UTI and FREDDY. Continue Abx and IV fluids. (4) Acute kidney injury Current Visit: No Status: Acute Assessment and plan: Patient's baseline Cr. is 1.2-1.25. Patient was 1.48 on admission After IV hydration pt's Cr has improved to 1.31. Continue IV hydration. (5) Hypertension Current Visit: No Status: Chronic Assessment and plan: Patient has been running in the low 100s, upper 90s for systolic BP. Continue to hold metoprolol for now. Qualifiers: Hypertension type: essential hypertension Qualified Code(s): I10 - Essential (primary) hypertension (6) Coronary artery disease Current Visit: No Status: Chronic Assessment and plan: Stable, Chronic no chest pain at this time continue home ASA, Lipitor holding metoprolol as BP has been low. Qualifiers: Coronary Disease-Associated Artery/Lesion type: [place] artery [place] vs. transplanted heart: [place] heart Associated angina: without angina Qualified Code(s): I25.10 - Atherosclerotic heart disease of [place] coronary artery without angina pectoris (7) Thyroid disease Current Visit: No Status: Chronic Assessment and plan: Patient has Hx of Hypothyroidism continue home synthroid (8) Vitamin B 12 deficiency Current Visit: No Status: Acute Assessment and plan: Patient was found to be vitamin B12 deficient on last admission. Patient was started on B12 supplementation.1,000mcg a day. Patient not currently on B12 this hospitalization. -restart B12. - Subjective Interval history: Patient is Alert and oriented only to person. Per prior notes daughter reports he is normally able to know where he is and the time and able to ambulate independently but was unable to do so in the past couple of days. Patient denies current CEDENO, CP, SOB, abd pn, dysuria. WBC and kidney function improving. - Constitutional Vitals: Temp Pulse Resp BP Pulse Ox 98.0 F 72 13 99/66 96 01/03/17 07:12 01/03/17 07:12 01/03/17 07:12 01/03/17 07:12 01/03/17 07:12 General appearance: Present: A&O X 1, no acute distress - Eye Eye exam: Present: PERRL - ENT ENT exam: Present: mucous membranes moist - Respiratory Respiratory exam: Present: CTAB Additional comments: upper airway noises - Cardiovascular Cardiovascular exam: Present: RRR, +S1, +S2. Absent: gallop, rubs - GI/Abdominal GI/Abdominal exam: Present: normal bowel sounds, soft. Absent: tenderness - Extremities Exam Extremities exam: Absent: pedal edema - Neurological Exam Neurological exam: Present: alert. Absent: oriented X3, speech deficit Internal Medicine: Result - Labs CBC & Chem 7: 01/03/17 04:11 01/03/17 04:11 Labs: Short CBC 01/03/17 Range/Units 04:11 WBC 8.6 (4.3-11.1) K/mcL Hgb 9.4 L (12.9-16.9) g/dL Hct 29.7 L (37.5-50.1) % Plt Count 172 (140-400) K/mcL Neutrophils # 6.2 (1.6-8.9) K/mcL BMP 01/03/17 04:11 Sodium 137 Potassium 4.3 Chloride 106 Carbon Dioxide 25 BUN 30 H Creatinine 1.31 H Glucose 92 Calcium 7.9 L - ABG Interpretation ABG results: PT/INR, D-dimer PT 13.9 Seconds (9.4-12.1) H 01/02/17 18:07 - VTE Documentation of Mechanical Device: Venous foot pump, device Consult Discharge Plan - Plan Referrals: Cuong Giraldo Jr, CNP [Advanced Practice Nurse] - 01/17/17 10:30 am Edy Rizzo MD [Primary Care Provider] - <Jacobo Lynch - Last Filed: 01/03/17 19:14> Date of Encounter: 01/03/17 - Assessment and plan (1) Toxic metabolic encephalopathy Current Visit: Yes Status: Acute (2) Enterococcal septicemia Current Visit: Yes Status: Acute Assessment and plan: On IV abx. Check echo. 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 transplanted heart: [place] heart Associated angina: without angina Qualified Code(s): I25.10 - Atherosclerotic heart disease of [place] coronary artery without angina pectoris (6) Myelodysplastic syndrome Current Visit: No Status: Chronic (7) Hypertension Current Visit: No Status: Chronic Qualifiers: Hypertension type: essential hypertension Qualified Code(s): I10 - Essential (primary) hypertension - Constitutional Vitals: Temp Pulse Resp BP Pulse Ox 97.6 F 72 15 108/69 98 01/03/17 15:19 01/03/17 15:19 01/03/17 15:19 01/03/17 15:19 01/03/17 15:19 Internal Medicine: Result - Labs CBC & Chem 7: 01/03/17 04:11 01/03/17 04:11 Labs: Short CBC 01/03/17 Range/Units 04:11 WBC 8.6 (4.3-11.1) K/mcL Hgb 9.4 L (12.9-16.9) g/dL Hct 29.7 L (37.5-50.1) % Plt Count 172 (140-400) K/mcL Neutrophils # 6.2 (1.6-8.9) K/mcL BMP 01/03/17 04:11 Sodium 137 Potassium 4.3 Chloride 106 Carbon Dioxide 25 BUN 30 H Creatinine 1.31 H Glucose 92 Calcium 7.9 L - ABG Interpretation ABG results: PT/INR, D-dimer PT 13.9 Seconds (9.4-12.1) H 01/02/17 18:07 - Attending Attestation I examined this patient and my medical decision-making was reviewed with the Resident Physician on 01/03/17. I agree with the documented findings, disposition and treatment plan as described except to the extent set forth below. Mr. Smith is currently in observation for acute encephalopathy. He is now bacteremic. He is high risk due to bacteremia and potential for worsening infectious status. Mr. Smith is still very somnolent. No fever or chills. Blood cx now positive. Exam Alert but somnolent. Mucus membranes dry Heart reg No wheeze Abd soft I/P 1. Sepsis - bacteremia - most likely enterococcus 2. Encephalopathy Further diagnoses and plan as above.
[2017-01-04] MEDS: Ampicillin/Sulbactam 1,500 MG in 0.9 % Sodium Chloride Mini Bag 100 ML IVPB SCH ×3 (06:02→18:19)
[2017-01-04] MEDS: *HR* Heparin 5,000 UNIT/ML VIAL SQ SCH ×2 (06:05→18:19)
[2017-01-04 06:50] LABS: blaKPC Carbapenem-Resist Gene Not Detected (Not Detect); mecA Methicillin-Resist Gene Not Detected (Not Detect); vanA/B Vancomycin-Resist Genes Not Detected (Not Detect)
[2017-01-04 06:51] LABS: Acinetobacter baumannii by PCR Not Detected (Not Detect); Candida albicans by PCR Not Detected (Not Detect); Candida glabrata by PCR Not Detected (Not Detect); Candida krusei by PCR Not Detected (Not Detect); Candida parapsilosis by PCR Not Detected (Not Detect); Candida tropicalis by PCR Not Detected (Not Detect); Enterococcus by PCR ***DETECTED*** (Not Detect); Escherichia coli by PCR Not Detected (Not Detect); Klebsiella oxytoca by PCR Not Detected (Not Detect); Klebsiella pneumoniae by PCR Not Detected (Not Detect); Pseudomonas aeruginosa by PCR Not Detected (Not Detect); Serratia marcescens by PCR Not Detected (Not Detect); Staphylococcus aureus by PCR Not Detected (Not Detect); Streptococcus agalactiae(B)PCR Not Detected (Not Detect); Streptococcus by PCR Not Detected (Not Detect); Streptococcus pneumoniae PCR Not Detected (Not Detect); Streptococcus pyogenes (A) PCR Not Detected (Not Detect)
[2017-01-04 07:36] LABS: Potassium 4.8 mEq/L (3.5-4.5)
[2017-01-04 07:37] LABS: Calcium 8.4 mg/dL (8.6-10.8)
[2017-01-04] MEDS: Famotidine 20 MG/2 ML VIAL IVP SCH (09:23)
[2017-01-04] MEDS: Aspirin Enteric Coated 81 MG Tablet PO SCH (09:23)
--- NOTE | 2017-01-04 09:49 | Internal Med Progress Note ---
<YeisonTyler poole - Last Filed: 01/04/17 09:52> Date of Encounter: 01/04/17 Time of Encounter: 09:30 - Assessment and plan (1) Bacteremia due to Enterococcus Current Visit: Yes Status: Acute Assessment and plan: Likely cause of patient's AMS -Patient's blood cultures positive for Enterococcus species. Awaiting final report. -Urine Cx negative. -Looking for alternative sources. -Likely patient's blood was infected during last UTI admission at end of November. -No blood cultures were done at that time, but Urine cx at that time grew enterococcus. -Checked TTE to look for endocarditis. Report pending. -COntinue unasyn until sensitivities come back. Was sensitive on last admission. (2) UTI (urinary tract infection) Current Visit: No Status: Acute Assessment and plan: No current UTI. Cx was negative. Patient was D/C'd on 12/23 with a UTI. He was D/C'd home on 3 days of amoxicillin which bug was susceptabile to. Patient has history of recurrent UTIs. Patient was started on Ceftriaxone and Azithromycin by the ED, then switched to Unasyn by admitting team. Continue Unasyn for now pending sensitivities of blood cx. Qualifiers: Urinary tract infection type: site unspecified Hematuria presence: with hematuria Qualified Code(s): N39.0 - Urinary tract infection, site not specified; R31.9 - Hematuria, unspecified (3) Delirium due to general medical condition Current Visit: Yes Status: Acute Assessment and plan: -Patient was AxO x3 3 on d/c on 12/23/16. -Patient currently AxO 1 currently. Similar presentation last time with UTI. -Likely delierium caused by toxic metabolic encephalopathy from bacteremia and FREDDY. -Continue medical management: IV fluids, Abx. (4) Toxic metabolic encephalopathy Current Visit: Yes Status: Acute Assessment and plan: -likely secondary to bacteremia and FREDDY. -Continue Abx and restart IV fluids. (5) Acute kidney injury Current Visit: No Status: Acute Assessment and plan: -Patient's baseline Cr. is 1.2-1.25. -Patient was 1.48 on admission -After IV hydration pt's Cr had improved to 1.31. -IV hydration was stopped, today pt's Cr. back up to 1.41 -restart IV hydration. (6) Hypertension Current Visit: No Status: Chronic Assessment and plan: -Patient has been well controlled 120s-100s off medicine.. -Continue to hold metoprolol for now. Qualifiers: Hypertension type: essential hypertension Qualified Code(s): I10 - Essential (primary) hypertension (7) Coronary artery disease Current Visit: No Status: Chronic Assessment and plan: -Stable, Chronic -no chest pain at this time -continue home ASA, Lipitor -holding metoprolol as BP has been normal to low. Qualifiers: Coronary Disease-Associated Artery/Lesion type: [place] artery [place] vs. transplanted heart: [place] heart Associated angina: without angina Qualified Code(s): I25.10 - Atherosclerotic heart disease of [place] coronary artery without angina pectoris (8) Thyroid disease Current Visit: No Status: Chronic Assessment and plan: -Patient has Hx of Hypothyroidism -continue home synthroid (9) Vitamin B 12 deficiency Current Visit: No Status: Acute Assessment and plan: -Patient was found to be vitamin B12 deficient on last admission. -Patient was started on B12 supplementation.1,000mcg a day. -Patient not currently on B12 this hospitalization. -restart B12. - Subjective Interval history: Patient is Alert and still oriented only to person. Patient denies current CEDENO , CP, SOB, abd pn, dysuria. - Constitutional Vitals: Temp Pulse Resp BP Pulse Ox 97.7 F 80 17 127/76 96 01/04/17 07:10 01/04/17 07:10 01/04/17 07:10 01/04/17 07:10 01/04/17 07:10 General appearance: Present: A&O X 1, no acute distress - Eye Eye exam: Present: PERRL - ENT ENT exam: Present: mucous membranes moist - Respiratory Respiratory exam: Present: CTAB. Absent: rales, rhonchi, wheezes - Cardiovascular Cardiovascular exam: Present: RRR, +S1, +S2. Absent: gallop, rubs, systolic murmur - GI/Abdominal GI/Abdominal exam: Present: normal bowel sounds, soft. Absent: tenderness - Extremities Exam Extremities exam: Absent: pedal edema - Neurological Exam Neurological exam: Present: alert. Absent: oriented X3 - Psychiatric Psychiatric exam: Present: normal affect, normal mood - Skin Additional comments: some ecchymosis and dried blood on chest. Internal Medicine: Result - Labs CBC & Chem 7: 01/03/17 04:11 01/04/17 06:00 Labs: BMP 01/04/17 06:00 Sodium 140 Potassium 4.8 H Chloride 109 Carbon Dioxide 21 BUN 28 H Creatinine 1.41 H Glucose 95 Calcium 8.4 L - ABG Interpretation ABG results: PT/INR, D-dimer PT 13.9 Seconds (9.4-12.1) H 01/02/17 18:07 - VTE Documentation of Mechanical Device: Venous foot pump, device Consult Discharge Plan - Plan Referrals: Cuong Giraldo Jr, CNP [Advanced Practice Nurse] - 01/17/17 10:30 am Edy Rizzo MD [Primary Care Provider] - <Jacobo Lynch - Last Filed: 01/04/17 20:00> Date of Encounter: 01/04/17 - Assessment and plan (1) Toxic metabolic encephalopathy Current Visit: Yes Status: Acute (2) Enterococcal septicemia Current Visit: Yes Status: Acute (3) FREDDY (acute kidney injury) Current Visit: Yes Status: Acute (4) CVA, old, cognitive deficits Current Visit: No Status: Chronic (5) Coronary artery disease Current Visit: No Status: Chronic Qualifiers: Coronary Disease-Associated Artery/Lesion type: [place] artery [place] vs. transplanted heart: [place] heart Associated angina: without angina Qualified Code(s): I25.10 - Atherosclerotic heart disease of [place] coronary artery without angina pectoris (6) Myelodysplastic syndrome Current Visit: No Status: Chronic (7) Hypertension Current Visit: No Status: Chronic Qualifiers: Hypertension type: essential hypertension Qualified Code(s): I10 - Essential (primary) hypertension - Constitutional Vitals: Temp Pulse Resp BP Pulse Ox 97.4 F L 79 16 105/68 98 01/04/17 16:07 01/04/17 16:07 01/04/17 16:07 01/04/17 16:07 01/04/17 16:07 Internal Medicine: Result - Labs CBC & Chem 7: 01/04/17 09:47 01/04/17 06:00 - ABG Interpretation ABG results: PT/INR, D-dimer PT 13.9 Seconds (9.4-12.1) H 01/02/17 18:07 - Attending Attestation I examined this patient and my medical decision-making was reviewed with the Resident Physician on 01/04/17. I agree with the documented findings, disposition and treatment plan as described except to the extent set forth below. Mr. Smith is currently admitted for acute encephalopathy and enterococcal bacteremia. He remains high risk due to potential for worsening infectious status. Mr. Smith is alert but still confused. His family is at bedside and updated. He denies pain. No fever or chills. Exam Alert. Comfortable Mucus membranes moist Heart reg with no murmur Lungs clear Abd soft No edema I/P 1. Enterococcal bacteremia 2. Encephalopathy At this point pt placed inpatient status due to significance of his infection. He recently was hospitalized for enterococcal UTI and now returns with bacteremia. I am concerned for a secondary source of infection and feel he is high risk and requires IV abx and further evaluation. He may need exterminator helper abx at discharge. Further work up in progress.
[2017-01-04 10:12] LABS: Hematocrit 31.6 % (37.5-50.1); Hemoglobin 10.3 g/dL (12.9-16.9); Immature Platelets 7.4 % (1.1-6.1); Mean Corpuscular HGB Conc 32.6 g/dL (31.6-35.5); Mean Corpuscular Hemoglobin 29.9 pg (28.0-33.3); Mean Corpuscular Volume 91.6 fL (83.0-100.0); Mean Platelet Volume 12.1 fL (9.4-12.4); Red Blood Count 3.45 M/mcL (4.19-5.50); Red Cell Distribution Width 24.2 % (11.5-14.5)
[2017-01-04] MEDS: Cyanocobalamin (B-12) 1,000 MCG TABLET PO SCH (11:34)
[2017-01-04] MEDS ORDERED: 0.9 % Sodium Chloride 1,000 ML IVC SCH (11:45)
--- NOTE | 2017-01-04 15:19 | Infectious Disease Consult ---
Date of Encounter: 01/04/17 Time of Encounter: 15:11 Assessment and Plan (1) Bacteremia due to Enterococcus Status: Acute Assessment and plan: Recent discharge on 12/23/18 following admission for UTI with Urine culture positive for enterococcus faecalis on 12/19/16. He was initially treated with Rocephin and transitioned to ampicillin upon discharge for a total of 7 days of treatment. Since admission he has met three SIRS criteria of elevated white blood count, tachycardia Labs on admission revealed WBC 11.5, BUN 36, creatinine 1.48, and urinalysis revealed 5-15 WBCs, many epithelial cells, and large amount of blood. Blood cultures collected on 01/12/17 revealed gram-positive cocci/enterococcus in 2 out of 2 sets. Urine culture collected 01/02/17 shows no growth to date. Patient was initially given ampicillin, Rocephin, and azithromycin on 01/02/17 then was switched to Unasyn on 01/03/17. Recommendations: d/c unasyn start ampicillin 12 grams continuous pump (will ask pharmacy to recommend dosing since CrCl 34) duration of treatment 2 weeks since patient does not have any endocarditis stigmata there is a chance that he has seeded the AICD but At this point, i think we will take the conservative route, treat for 2 weeks , repeat blood cultures one week after stopping antibiotics, if bacteremia persists, will d/w family again to see what options do they want to pursue. patient is not a candidate to remove the AICD monitor labs weekly cbc, bmp while on ampicillin continuous pump. (2) Sepsis Status: Resolved Assessment and plan: Since admission he has met three SIRS criteria of elevated white blood count, tachycardia, and altered mental status. Labs on admission revealed WBC 11.5, BUN 36, creatinine 1.48, and urinalysis revealed 5-15 WBCs, many epithelial cells, and large amount of blood. Blood cultures collected on 01/12/17 revealed gram-positive cocci/enterococcus in 2 out of 2 sets. Urine culture collected 01/02/17 shows no growth to date. Patient was initially given ampicillin, Rocephin, and azithromycin on 01/12/17 then was switched to Unasyn on 01/03/17. Qualifiers: Sepsis type: sepsis due to unspecified organism Qualified Code(s): A41.9 - Sepsis, unspecified organism (3) Encephalopathy Status: Acute Assessment and plan: Continue management per primary team (4) Acute kidney injury Status: Acute Assessment and plan: Continue management per primary team Infectious Disease HPI - Data of Consult Consult date: 01/04/17 Requesting Physician: Jacobo Lynch DO Primary Care Provider: Edy Rizzo MD - Consult Narrative Reason for consult: Bacteremia History of present illness: Mr. Smith is a 86 year old male was admitted on 01/02/17 for altered mental status. Infectious disease is consulted on 01/04/17 for bacteremia. Mr. Smith is a 86 year old male with a PMH significant for coronary artery disease, PACER, CVA, dementia, hyperlipidemia, hypertension, osteoporosis, thyroid disease, TIA, and recent discharge on 12/23/18 following admission for UTI with Urine culture positive for enterococcus faecalis on 12/19/16. He was initially treated with Rocephin and transitioned to ampicillin upon discharge for a total of 7 days of treatment. Since admission he has met three SIRS criteria of elevated white blood count, tachycardia, and altered mental status. Labs on admission revealed WBC 11.5, BUN 36, creatinine 1.48, and urinalysis revealed 5-15 WBCs, many epithelial cells, and large amount of blood. Chest x-ray revealed left-sided AICD device is in place and small left pleural effusion. CT brain revealed no acute intracranial abnormality. Blood cultures collected on 01/12/17 revealed gram-positive cocci/enterococcus in 2 out of 2 sets. Urine culture collected 01/02/17 shows no growth to date. Patient was initially given ampicillin, Rocephin, and azithromycin on 01/12/17 then was switched to Unasyn on 01/03/17. Other consultants including urology for evaluation of bladder lesion. CC: Jacobo Lynch DO Past Med Surg Social Fam HX - Past Medical History Medical history: arthritis, coronary artery disease, CVA, dementia, hyperlipidemia, hypertension, osteoporosis, thyroid disease, TIA Psychiatric history: no psych history - Past Surgical History Surgical History: carotid endarterectomy, knee replacement, pacemaker/AICD - Social History Smoking Status: Former smoker Smokeless Tobacco Status: No Alcohol use: none Drug use: none - Family History Brother Family Member Ethnicity: Non- Living Status: Hx Family Cardiac Disorders: Yes (SD) Sister Family Member Ethnicity: Non- Living Status: Hx Family Neurologic Disorders: Yes (Dementia/Alzheimer's disease) Mother Family Member Ethnicity: Non- Living Status: Hx Family Cardiac Disorders: Yes (SD) Father Family Member Ethnicity: Non- Living Status: Hx Family Cardiac Disorders: Yes (SD) Infectious Disease-CN:Meds Aspirin [Adult Low Dose Aspirin EC] 81 mg PO DAILY 06/19/15 [History] Spironolactone [Aldactone] 12.5 mg PO DAILY 06/19/15 [History] Lactobacillus Acidophilus [Probiotic Gold Acidophilus] 1 each PO DAILY #30 capsule 01/13/16 [Rx] Atorvastatin [Lipitor] 40 mg PO HS 12/19/16 [History] Levothyroxine [Synthroid] 100 mcg PO 0630 12/19/16 [History] Loperamide HCl [Imodium A-D] 4 mg PO BID 12/19/16 [History] Melatonin 10 mg PO HS PRN 12/19/16 [History] Memantine HCl 10 mg PO BID 12/19/16 [History] Tamsulosin [Flomax] 0.4 mg PO DAILY 12/19/16 [History] Cyanocobalamin (B-12) [Vitamin B12] 1,000 mcg PO DAILY #30 tab 12/23/16 [Rx] Metoprolol XL (24 HR) Succ [Toprol Xl] 25 mg PO DAILY #30 12/23/16 [Rx] Allergies No Known Allergies Allergy (Verified 12/19/16 10:31) Review of systems: Travel: denies recent travel Animal exposure: denies Sick contacts: Denies. Diet: denies ingestion of undercooked or raw meats. Dental: denies recent dental procedures - Constitutional Constitutional: Absent: anorexia, chills, fever(s), night sweats, weight gain, weight loss - EENT Eyes: Absent: change in vision Nose, mouth and throat: Absent: nasal congestion, sore throat - Cardiovascular Cardiovascular: Absent: chest pain, dyspnea, palpitations - Respiratory Respiratory: Absent: cough, chest congestion, excessive phlegm production - Gastrointestinal Gastrointestinal: Absent: abdominal pain, constipation, diarrhea, nausea, vomiting - Genitourinary Genitourinary: dysuria, urinary urgency - Integumentary Integumentary: Absent: change in hair, change in nails, erythema, rash, skin ulcer - Psychiatric Psychiatric: Present: confusion, memory loss - Endocrine Endocrine: Present: fatigue. Absent: polydipsia, polyphagia, polyuria - Hematologic/Lymphatic Hematologic/Lymphatic: Present: easy bruising. Absent: lymphadenopathy Exam - Constitutional Vitals: Temp Pulse Resp BP Pulse Ox 97.6 F 80 17 117/73 97 01/04/17 11:34 01/04/17 11:34 01/04/17 11:34 01/04/17 11:34 01/04/17 11:34 - Head Head exam: Present: atraumatic, normal inspection, normocephalic - Eye Eye exam: Present: PERRL, conjuntiva pink - ENT ENT exam: Present: mucous membranes moist, normal oropharynx Additional comments: Poor dentition - Neck Neck exam: Present: normal inspection. Absent: lymphadenopathy, tenderness, thyromegaly - Respiratory Respiratory exam: Present: CTAB. Absent: wheezes - Cardiovascular Cardiovascular exam: Present: RRR, +S1, +S2 - GI/Abdominal GI/Abdominal exam: Present: normal bowel sounds. Absent: distended, guarding, rigid, soft - Extremities Exam Extremities exam: Present: normal inspection. Absent: pedal edema, tenderness - Neurological Exam Neurological exam: Present: alert, altered. Absent: oriented X3 Additional comments: A & O 1 - Skin Skin exam: Present: dry, warm. Absent: rash Infectious Disease CN: Results - Labs CBC & Chem 7: 01/04/17 09:47 01/04/17 06:00 Cultures: Microbiology 01/02/17 18:07 Peripheral Venipuncture Blood Culture - Preliminary Gram Positive Cocci 01/02/17 18:07 Peripheral Venipuncture Blood Culture - Preliminary Gram Positive Cocci 01/02/17 17:44 Urine,Random-Not Preferred Urine Culture - Final No growth. - VTE Documentation of Mechanical Device: Venous foot pump, device Consult Discharge Plan - Plan Referrals: Cuong Giraldo Jr, CNP [Advanced Practice Nurse] - 01/17/17 10:30 am Edy Rizzo MD [Primary Care Provider] - - Attending Attestation I examined this patient and my medical decision-making was reviewed with the Resident Physician. I agree with the documented findings, disposition and treatment plan as described except to the extent set forth below. Patient is an 86 year old gentleman with past medical history mentioned below intially was here 2 weeks ago with UTI with enterococcus Patient was treated appropriately but now comes back with Enterococcus faecalis bacteremia that is Amp S. Patient appears confused now but i'm not sure if that's close to his baseline patient did have 2 SIRS criteria on admission but currently seems to be doing better patient does have an AICD but does not have an obvious endocarditis stigmata At this point: d/c unasyn start ampicillin 12 grams continuous pump (will ask pharmacy to recommend dosing since CrCl 34) duration of treatment 2 weeks since patient does not have any endocarditis stigmata there is a chance that he has seeded the AICD but At this point, i think we will take the conservative route, treat for 2 weeks , repeat blood cultures one week after stopping antibiotics, if bacteremia persists, will d/w family again to see what options do they want to pursue. patient is not a candidate to remove the AICD monitor labs weekly cbc, bmp while on ampicillin continuous pump.
[2017-01-04] MEDS ORDERED: Haloperidol Lactate 5 MG/ML VIAL IVP PRN (17:05)
--- NOTE | 2017-01-04 20:14 | Electrocardiograph Report ---
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
[2017-01-05] MEDS: Ampicillin/Sulbactam 1,500 MG in 0.9 % Sodium Chloride Mini Bag 100 ML IVPB SCH ×2 (01:37→05:45)
[2017-01-05 04:49] LABS: Hematocrit 31.7 % (37.5-50.1); Hemoglobin 9.8 g/dL (12.9-16.9); Mean Corpuscular HGB Conc 30.9 g/dL (31.6-35.5); Mean Corpuscular Hemoglobin 28.5 pg (28.0-33.3); Mean Corpuscular Volume 92.2 fL (83.0-100.0); Mean Platelet Volume 11.5 fL (9.4-12.4); Platelet Count 197 K/mcL (140-400); Red Blood Count 3.44 M/mcL (4.19-5.50); Red Cell Distribution Width 23.9 % (11.5-14.5)
[2017-01-05 05:15] LABS: Calcium 8.7 mg/dL (8.6-10.8)
[2017-01-05 05:25] LABS: Potassium 4.3 mEq/L (3.5-4.5)
[2017-01-05] MEDS: *HR* Heparin 5,000 UNIT/ML VIAL SQ SCH ×2 (05:43→18:04)
--- NOTE | 2017-01-05 08:12 | Infectious Disease Progress No ---
Date of Encounter: 01/05/17 Time of Encounter: 08:12 - Assessment and Plan (1) Bacteremia due to Enterococcus Current Visit: Yes Status: Acute Recent discharge on 12/23/18 following admission for UTI with Urine culture positive for enterococcus faecalis on 12/19/16. He was initially treated with Rocephin and transitioned to ampicillin upon discharge for a total of 7 days of treatment. Since admission he has met three SIRS criteria of elevated white blood count, tachycardia Labs on admission revealed WBC 11.5, BUN 36, creatinine 1.48, and urinalysis revealed 5-15 WBCs, many epithelial cells, and large amount of blood. Blood cultures collected on 01/02/17 revealed gram-positive cocci, and enterococcus sensitive to ampicillin in sets 1 and 2 respectively. Urine culture collected 01/02/17 shows no growth to date. Patient was initially given ampicillin, Rocephin, and azithromycin on 01/02/17 then was switched to Unasyn on 01/03/17. Recommendations: d/c unasyn start ampicillin 12 grams continuous pump (pharmacy to recommend dosing since CrCl 33) duration of treatment 2 weeks since patient does not have any endocarditis stigmata there is a chance that he has seeded the AICD but at this point, I think we will take the conservative route, treat for 2 weeks, and repeat blood cultures one week after stopping antibiotics. If bacteremia persists, will d/w family again to see what options do they want to pursue. Patient is not a candidate to remove the AICD monitor labs weekly cbc, bmp while on ampicillin continuous pump. (2) Enterococcal septicemia Current Visit: Yes Status: Acute Since admission he has met two SIRS criteria of elevated white blood count, tachycardia Labs on admission revealed WBC 11.5, BUN 36, creatinine 1.48, and urinalysis revealed 5-15 WBCs, many epithelial cells, and large amount of blood. Blood cultures collected on 01/02/17 revealed gram-positive cocci, and enterococcus sensitive to ampicillin in sets 1 and 2 respectively. Urine culture collected 01/02/17 shows no growth to date. Patient was initially given ampicillin, Rocephin, and azithromycin on 01/12/17 then was switched to Unasyn on 01/03/17. Unasyn discontinued Started ampicillin (3) Encephalopathy Current Visit: Yes Status: Acute Continue management per primary team (4) Acute kidney injury Current Visit: No Status: Acute Continue management per primary team - Subjective Interval history: Patient seen and examined. Patient resting comfortably in bed with sitter at bedside. Sitter reports he was very combative and agitated last night. He pulled out his IV last night but now has a new IV and place in his left arm. Patient is non-conversant this morning and denies any new complaints. He does not follow commands and family is not present during time of exam. Infect Dis PN-Objective Data - Labs CBC & Chem 7: 01/05/17 03:31 01/05/17 03:31 Labs: Laboratory Results - last 24 hr 01/05/17 01/05/17 03:31 03:31 WBC 6.6 RBC 3.44 L Hgb 9.8 L Hct 31.7 L MCV 92.2 MCH 28.5 MCHC 30.9 L RDW 23.9 H Plt Count 197 MPV 11.5 Sodium 139 Potassium 4.3 Chloride 105 Carbon Dioxide 25 BUN 23 Creatinine 1.45 H Est GFR ( Amer) 56 L Est GFR (Non-Af Amer) 46 L BUN/Creatinine Ratio 16 Glucose 98 Calculated Osmolality 292 Calcium 8.7 Cultures: Microbiology 01/02/17 18:07 Peripheral Venipuncture Blood Culture - Final Enterococcus species 01/02/17 18:07 Peripheral Venipuncture Blood Culture - Preliminary Gram Positive Cocci Exam - Constitutional Vitals: Temp Pulse Resp BP Pulse Ox 97.6 F 90 17 144/87 97 01/04/17 20:21 01/04/17 20:21 01/04/17 20:21 01/04/17 20:21 01/04/17 20:21 Last Vital Signs Temp 97.4 F L 01/05/17 09:23 Pulse 87 01/05/17 09:23 Resp 18 01/05/17 09:23 BP 128/72 01/05/17 09:23 Pulse Ox 94 01/05/17 09:23 General appearance: no acute distress, no febrile, no cooperative Exam: Laying in bed with eyes closed, restless - Head Head exam: Present: atraumatic, normal inspection, normocephalic - Neck Neck exam: Present: full ROM, normal inspection. Absent: tenderness - Respiratory Respiratory exam: Present: CTAB. Absent: accessory muscle use, rales, rhonchi, wheezes - Cardiovascular Cardiovascular exam: Present: RRR, +S1, +S2 Additional comments: Pacemaker left upper chest - GI/Abdominal GI/Abdominal exam: Present: normal bowel sounds, soft. Absent: guarding, rebound, tenderness - Extremities Exam Extremities exam: Present: full ROM. Absent: tenderness Additional comments: IV access left arm - Neurological Exam Neurological exam: Present: altered. Absent: oriented X3 - Psychiatric Psychiatric exam: Present: agitated Additional comments: Restless - Skin Skin exam: Present: dry. Absent: erythema, rash Additional comments: Multiple chronic ecchymosis anterior chest and upper extremities - VTE Documentation of Mechanical Device: Venous foot pump, device Consult Discharge Plan - Plan Referrals: Cuong Giraldo Jr, CNP [Advanced Practice Nurse] - 01/17/17 10:30 am Edy Rizzo MD [Primary Care Provider] - - Attending Attestation I examined this patient and my medical decision-making was reviewed with the Resident Physician. I agree with the documented findings, disposition and treatment plan as described except to the extent set forth below.
[2017-01-05] MEDS: Aspirin Enteric Coated 81 MG Tablet PO SCH (08:39)
[2017-01-05] MEDS: Famotidine 20 MG/2 ML VIAL IVP SCH (08:39)
[2017-01-05] MEDS: Cyanocobalamin (B-12) 1,000 MCG TABLET PO SCH (08:39)
--- NOTE | 2017-01-05 09:25 | Internal Med Progress Note ---
<Tyler Hernandez - Last Filed: 01/05/17 12:43> Date of Encounter: 01/05/17 Time of Encounter: 08:55 - Assessment and plan (1) Bacteremia due to Enterococcus Current Visit: Yes Status: Acute Assessment and plan: Likely cause of patient's AMS -Patient's blood cultures positive for Enterococcus species. Sensitive to Ampicillin -Urine Cx negative. -Looking for alternative sources. Possibly Pacer leads. -Checked TTE to look for endocarditis. No vegetations seen. -Per ID's recs: "d/c unasyn start ampicillin 12 grams continuous pump (pharmacy to recommend dosing since CrCl 33) duration of treatment 2 weeks " (2) UTI (urinary tract infection) Current Visit: No Status: Acute Assessment and plan: No current UTI. Cx was negative. Patient was D/C'd on 12/23 with a UTI. He was D/C'd home on 3 days of amoxicillin which bug was susceptible to. Patient has history of recurrent UTIs. Patient was started on Ceftriaxone and Azithromycin by the ED, then switched to Unasyn by admitting team. Discontinue Unasyn start Ampicillin. Blood cultures grew enteroccocus sensitive to Ampicillin. Qualifiers: Urinary tract infection type: site unspecified Hematuria presence: with hematuria Qualified Code(s): N39.0 - Urinary tract infection, site not specified; R31.9 - Hematuria, unspecified (3) Delirium due to general medical condition Current Visit: Yes Status: Acute Assessment and plan: -Delirium worsened overnight. -Was given Haldol but this increased agitation -will given patient ativan prn -Patient was AxO x3 3 on d/c on 12/23/16. -Patient currently AxO 0 currently. Similar presentation last time with UTI. -Likely delierium caused by toxic metabolic encephalopathy from bacteremia. -Continue medical management (4) Toxic metabolic encephalopathy Current Visit: Yes Status: Acute Assessment and plan: -likely secondary to bacteremia. -Continue Abx (5) Hypertension Current Visit: No Status: Chronic Assessment and plan: -Patient has been well controlled off medicine. -Continue to hold metoprolol for now. Qualifiers: Hypertension type: essential hypertension Qualified Code(s): I10 - Essential (primary) hypertension (6) Coronary artery disease Current Visit: No Status: Chronic Assessment and plan: -Stable, Chronic -continue home ASA, Lipitor -holding metoprolol as BP has been normal to low. Qualifiers: Coronary Disease-Associated Artery/Lesion type: [place] artery [place] vs. transplanted heart: [place] heart Associated angina: without angina Qualified Code(s): I25.10 - Atherosclerotic heart disease of [place] coronary artery without angina pectoris (7) Thyroid disease Current Visit: No Status: Chronic Assessment and plan: -Hx of Hypothyroidism -continue home synthroid (8) Vitamin B 12 deficiency Current Visit: No Status: Acute Assessment and plan: -continue B12 supplementation - Subjective Interval history: Patient more confused this morning. Not able to answer questions or tell me his name. Not able to feed himself as he was earlier Patient sundowned last night per nursing. PRN haldol was given but worsened agitation. - Constitutional Vitals: Temp Pulse Resp BP Pulse Ox 97.4 F L 87 18 128/72 94 01/05/17 09:23 01/05/17 09:23 01/05/17 09:23 01/05/17 09:23 01/05/17 09:23 General appearance: Present: A&O X 0 - Eye Eye exam: Present: sclera anicteric - ENT ENT exam: Present: mucous membranes moist - Respiratory Respiratory exam: Present: CTAB. Absent: rales, rhonchi, wheezes - Cardiovascular Cardiovascular exam: Present: RRR, +S1, +S2. Absent: gallop, rubs, systolic murmur - GI/Abdominal GI/Abdominal exam: Present: normal bowel sounds, soft. Absent: tenderness - Extremities Exam Extremities exam: Absent: pedal edema - Neurological Exam Neurological exam: Present: altered. Absent: oriented X3 - Psychiatric Psychiatric exam: Present: agitated - Skin Skin exam: Present: dry, warm Internal Medicine: Result - Labs CBC & Chem 7: 01/05/17 03:31 01/05/17 03:31 Labs: Short CBC 01/05/17 Range/Units 03:31 WBC 6.6 (4.3-11.1) K/mcL Hgb 9.8 L (12.9-16.9) g/dL Hct 31.7 L (37.5-50.1) % Plt Count 197 (140-400) K/mcL BMP 01/05/17 03:31 Sodium 139 Potassium 4.3 Chloride 105 Carbon Dioxide 25 BUN 23 Creatinine 1.45 H Glucose 98 Calcium 8.7 - ABG Interpretation ABG results: PT/INR, D-dimer PT 13.9 Seconds (9.4-12.1) H 01/02/17 18:07 - VTE Documentation of Mechanical Device: Venous foot pump, device Consult Discharge Plan - Plan Referrals: Cuong Giraldo Jr, CNP [Advanced Practice Nurse] - 01/17/17 10:30 am Edy Rizzo MD [Primary Care Provider] - <Jacobo Lynch - Last Filed: 01/05/17 17:57> Date of Encounter: 01/05/17 - Assessment and plan (1) Enterococcal septicemia Current Visit: Yes Status: Acute (2) Toxic metabolic encephalopathy Current Visit: Yes Status: Acute (3) FREDDY (acute kidney injury) Current Visit: Yes Status: Acute (4) CVA, old, cognitive deficits Current Visit: No Status: Chronic (5) Coronary artery disease Current Visit: No Status: Chronic Qualifiers: Coronary Disease-Associated Artery/Lesion type: [place] artery [place] vs. transplanted heart: [place] heart Associated angina: without angina Qualified Code(s): I25.10 - Atherosclerotic heart disease of [place] coronary artery without angina pectoris (6) Myelodysplastic syndrome Current Visit: No Status: Chronic (7) Hypertension Current Visit: No Status: Chronic Qualifiers: Hypertension type: essential hypertension Qualified Code(s): I10 - Essential (primary) hypertension (8) CKD (chronic kidney disease) stage 3, GFR 30-59 ml/min Current Visit: Yes Status: Chronic - Constitutional Vitals: Temp Pulse Resp BP Pulse Ox 97.8 F 85 16 117/71 94 01/05/17 11:52 01/05/17 11:52 01/05/17 11:52 01/05/17 11:52 01/05/17 11:52 Internal Medicine: Result - Labs CBC & Chem 7: 01/05/17 03:31 01/05/17 03:31 Labs: Short CBC 01/05/17 Range/Units 03:31 WBC 6.6 (4.3-11.1) K/mcL Hgb 9.8 L (12.9-16.9) g/dL Hct 31.7 L (37.5-50.1) % Plt Count 197 (140-400) K/mcL BMP 01/05/17 03:31 Sodium 139 Potassium 4.3 Chloride 105 Carbon Dioxide 25 BUN 23 Creatinine 1.45 H Glucose 98 Calcium 8.7 - ABG Interpretation ABG results: PT/INR, D-dimer PT 13.9 Seconds (9.4-12.1) H 01/02/17 18:07 - Attending Attestation I examined this patient and my medical decision-making was reviewed with the Resident Physician on 01/05/17. I agree with the documented findings, disposition and treatment plan as described except to the extent set forth below. Mr. Smith is currently admitted for acute enterococcal bacteremia with associated encephalopathy. He remains high risk due to potential for worsening neuro status and infection. Mr Smith was quite agitated last night and required a sitter. Ativan and Seroquel now ordered. He remains confused to place and time. He had powerglide placed today. No fever or chills. To have continuous Ampicillin at discharge. Exam Alert. Comfortable. Disoriented to place and time. Mucus membranes dry Heart reg No wheeze Abd soft No edema I/P 1. Enterococcal bacteremia 2. Hx UTI 3. Dementia Further diagnoses and plan as above.
[2017-01-05] MEDS ORDERED: AMPICILLIN IVPB SCH (11:00)
[2017-01-05] MEDS ORDERED: SODIUM CHLORIDE 0.9% IVPB SCH (11:00)
[2017-01-05] MEDS ORDERED: *HR* LORazepam 2 MG/ML VIAL IVP PRN (12:56)
[2017-01-05] MEDS: AMPICILLIN IVPB SCH ×2 (13:21→19:41)
[2017-01-05] MEDS: SODIUM CHLORIDE 0.9% IVPB SCH ×2 (13:21→19:41)
--- NOTE | 2017-01-05 17:31 | Urology - Consult Note ---
Date of Encounter: 01/05/17 Time of Encounter: 17:29 - Assessment and Plan (1) UTI (urinary tract infection) Current Visit: Yes Status: Acute Assessment and plan: I have discussed with the family on the phone regarding the patient's urological plan. I am going to cancel the patient's surgery on Monday. He will be scheduled in the future for cystoscopy and possible bladder wall biopsy in the office. We will continue to follow along at this time. Qualifiers: Urinary tract infection type: acute cystitis Hematuria presence: without hematuria Qualified Code(s): N30.00 - Acute cystitis without hematuria Urology CN:HPI Consult date: 01/05/17 Reason for consult Urology: Other (recurrent uti) Requesting physician: Jacobo Lynch History of present illness: Nasima is a 86-year-old male known to me secondary to having possible bladder lesion on recent cystoscopy in the office. Patient developed UTI after that cystoscopy and was admitted to the hospital. He is now readmitted to the hospital secondary to possible UTI with bacteremia. Patient was scheduled on Monday for cystoscopy and bladder wall biopsy. Past Med Surg Social Fam HX - Past Medical History Medical history: arthritis, coronary artery disease, CVA, dementia, hyperlipidemia, hypertension, osteoporosis, thyroid disease, TIA Psychiatric history: no psych history - Past Surgical History Surgical History: carotid endarterectomy, knee replacement, pacemaker/AICD - Social History Smoking Status: Former smoker Smokeless Tobacco Status: No Alcohol use: none Drug use: none - Family History Brother Family Member Ethnicity: Non- Living Status: Hx Family Cardiac Disorders: Yes ([place]) Sister Family Member Ethnicity: Non- Living Status: Hx Family Neurologic Disorders: Yes (Dementia/Alzheimer's disease) Mother Family Member Ethnicity: Non- Living Status: Hx Family Cardiac Disorders: Yes ([place]) Father Family Member Ethnicity: Non- Living Status: Hx Family Cardiac Disorders: Yes ([place]) Medications and Allergies Aspirin [Adult Low Dose Aspirin EC] 81 mg PO DAILY 06/19/15 [History] Spironolactone [Aldactone] 12.5 mg PO DAILY 06/19/15 [History] Lactobacillus Acidophilus [Probiotic Gold Acidophilus] 1 each PO DAILY #30 capsule 01/13/16 [Rx] Atorvastatin [Lipitor] 40 mg PO HS 12/19/16 [History] Levothyroxine [Synthroid] 100 mcg PO 0630 12/19/16 [History] Loperamide HCl [Imodium A-D] 4 mg PO BID 12/19/16 [History] Melatonin 10 mg PO HS PRN 12/19/16 [History] Memantine HCl 10 mg PO BID 12/19/16 [History] Tamsulosin [Flomax] 0.4 mg PO DAILY 12/19/16 [History] Cyanocobalamin (B-12) [Vitamin B12] 1,000 mcg PO DAILY #30 tab 12/23/16 [Rx] Metoprolol XL (24 HR) Succ [Toprol Xl] 25 mg PO DAILY #30 12/23/16 [Rx] Allergies No Known Allergies Allergy (Verified 12/19/16 10:31) Review of Systems ROS unobtainable: due to mental status Exam Initial Vital Signs Temp Pulse Resp BP Pulse Ox 98.1 F 82 13 130/91 97 01/02/17 17:22 01/02/17 17:22 01/02/17 17:22 01/02/17 17:22 01/02/17 17:22 - General physical appearance Present: well developed - Respiratory Present: normal respiratory effort - Cardiovascular Cardiovascular exam IM: RRR - Abdomen Abdomen: Present: soft Urology Results - Labs 01/05/17 03:31 01/05/17 03:31 Abnormal lab results RBC 3.44 M/mcL (4.19-5.50) L 01/05/17 03:31 Hgb 9.8 g/dL (12.9-16.9) L 01/05/17 03:31 Hct 31.7 % (37.5-50.1) L 01/05/17 03:31 MCHC 30.9 g/dL (31.6-35.5) L 01/05/17 03:31 RDW 23.9 % (11.5-14.5) H 01/05/17 03:31 Nucleated RBCs/100 WBC 0.2 /100 WBC (0) H 01/03/17 04:11 Immature Plt Fraction 7.4 % (1.1-6.1) H 01/04/17 09:47 Poikilocytosis 1+ (Not Present) A 01/03/17 04:11 Anisocytosis 2+ (Not Present) A 01/03/17 04:11 PT 13.9 Seconds (9.4-12.1) H 01/02/17 18:07 Creatinine 1.45 mg/dL (0.72-1.25) H 01/05/17 03:31 Est GFR ( Amer) 56 (> 60) L 01/05/17 03:31 Est GFR (Non-Af Amer) 46 (> 60) L 01/05/17 03:31 POC Glucose 101 (58-89) H 01/02/17 18:28 Total Bilirubin 1.4 mg/dL (0.2-1.2) H 01/02/17 18:07 Direct Bilirubin 0.6 mg/dL (0.0-0.5) H 01/02/17 18:07 Alkaline Phosphatase 149 Units/L (38-126) H 01/02/17 18:07 Albumin 3.3 g/dL (3.5-5.0) L 01/02/17 18:07 Globulin 4.2 g/dL (2.4-3.5) H 01/02/17 18:07 Albumin/Globulin Ratio 0.8 (1.1-2.2) L 01/02/17 18:07 Urine Protein 30 mg/dL (Neg-Trace) H 01/02/17 17:44 Urine Blood Large (Negative) H 01/02/17 17:44 Urine Microscopic RBC 50-100 per hpf (0-3) H 01/02/17 17:44 Urine Microscopic WBC 5-15 per hpf (0-3) H 01/02/17 17:44 Ur Squamous Epith Cells Many per lpf (None-Few) H 01/02/17 17:44 Ur Culture Indicated? YES (NO) A 01/02/17 17:44 Enterococcus sp PCR DETECTED (Not Detect) A 01/02/17 18:07 Diabetes panel 01/05/17 Range/Units 03:31 Sodium 139 (136-145) mEq/L Potassium 4.3 (3.5-4.5) mEq/L Chloride 105 (98-109) mEq/L Carbon Dioxide 25 (19-29) mEq/L BUN 23 (8-26) mg/dL Creatinine 1.45 H (0.72-1.25) mg/dL Glucose 98 (70-99) mg/dL Calcium 8.7 (8.6-10.8) mg/dL Calcium panel 01/05/17 Range/Units 03:31 Calcium 8.7 (8.6-10.8) mg/dL Pituitary panel 01/05/17 Range/Units 03:31 Sodium 139 (136-145) mEq/L Potassium 4.3 (3.5-4.5) mEq/L Chloride 105 (98-109) mEq/L Carbon Dioxide 25 (19-29) mEq/L BUN 23 (8-26) mg/dL Creatinine 1.45 H (0.72-1.25) mg/dL Glucose 98 (70-99) mg/dL Calcium 8.7 (8.6-10.8) mg/dL Adrenal panel 01/05/17 Range/Units 03:31 Sodium 139 (136-145) mEq/L Potassium 4.3 (3.5-4.5) mEq/L Chloride 105 (98-109) mEq/L Carbon Dioxide 25 (19-29) mEq/L BUN 23 (8-26) mg/dL Creatinine 1.45 H (0.72-1.25) mg/dL Glucose 98 (70-99) mg/dL Calcium 8.7 (8.6-10.8) mg/dL All other labs normal. Consult Discharge Plan - Plan Referrals: Cuong Giraldo Jr, CNP [Advanced Practice Nurse] - 01/17/17 10:30 am Edy Rizzo MD [Primary Care Provider] -
[2017-01-05] MEDS: 0.9 % Sodium Chloride 1,000 ML IVC SCH (21:05)
[2017-01-06] MEDS: AMPICILLIN IVPB SCH ×4 (01:27→20:36)
[2017-01-06] MEDS: SODIUM CHLORIDE 0.9% IVPB SCH ×4 (01:27→20:36)
[2017-01-06 04:29] LABS: Hematocrit 30.2 % (37.5-50.1); Hemoglobin 9.4 g/dL (12.9-16.9); Mean Corpuscular HGB Conc 31.1 g/dL (31.6-35.5); Mean Corpuscular Hemoglobin 28.9 pg (28.0-33.3); Mean Corpuscular Volume 92.9 fL (83.0-100.0); Mean Platelet Volume 11.3 fL (9.4-12.4); Platelet Count 190 K/mcL (140-400); Red Blood Count 3.25 M/mcL (4.19-5.50); Red Cell Distribution Width 24.3 % (11.5-14.5)
[2017-01-06 04:41] LABS: Calcium 8.6 mg/dL (8.6-10.8); Potassium 4.5 mEq/L (3.5-4.5)
[2017-01-06] MEDS: *HR* Heparin 5,000 UNIT/ML VIAL SQ SCH ×2 (05:39→17:31)
--- NOTE | 2017-01-06 09:14 | Internal Med Progress Note ---
<Tyler Hernandez - Last Filed: 01/06/17 11:44> Date of Encounter: 01/06/17 Time of Encounter: 08:30 - Assessment and plan (1) Bacteremia due to Enterococcus Current Visit: Yes Status: Acute Assessment and plan: Likely cause of patient's AMS -Patient's blood cultures positive for Enterococcus species. Sensitive to Ampicillin -Urine Cx negative. -Checked TTE to look for endocarditis. No vegetations seen. -Per ID's recs: d/c'd unasyn -started ampicillin 12 grams continuous pump (pharmacy to recommend dosing since CrCl 33)duration of treatment 2 weeks (2) UTI (urinary tract infection) Current Visit: No Status: Acute Assessment and plan: No current UTI. Cx was negative. Patient was D/C'd on 12/23 with a UTI. He was D/C'd home on 3 days of amoxicillin which bug was susceptible to. Patient has history of recurrent UTIs. Patient was started on Ceftriaxone and Azithromycin by the ED, then switched to Unasyn by admitting team. Discontinued Unasyn started Ampicillin. Blood cultures grew enteroccocus sensitive to Ampicillin. Qualifiers: Urinary tract infection type: site unspecified Hematuria presence: with hematuria Qualified Code(s): N39.0 - Urinary tract infection, site not specified; R31.9 - Hematuria, unspecified (3) Delirium due to general medical condition Current Visit: Yes Status: Acute Assessment and plan: -Delirium improved today. -patient started on 25mg seroquel qHS which seemed to help better. -has PRN ativan but did not require any overnight. -Patient was AxO x3 3 on d/c on 12/23/16. -Patient currently AxO 1 currently. Similar presentation last time with UTI. -Likely delierium caused by toxic metabolic encephalopathy from bacteremia. -Continue medical management (4) Toxic metabolic encephalopathy Current Visit: Yes Status: Acute Assessment and plan: -likely secondary to bacteremia. -Continue Abx per ID recs (5) Hypertension Current Visit: No Status: Chronic Assessment and plan: Patient has been well controlled off medicine. Continue to hold metoprolol for now. Qualifiers: Hypertension type: essential hypertension Qualified Code(s): I10 - Essential (primary) hypertension (6) Coronary artery disease Current Visit: No Status: Chronic Assessment and plan: Stable, Chronic continue home ASA, Lipitor holding metoprolol as BP has been normal to low. Qualifiers: Coronary Disease-Associated Artery/Lesion type: [place] artery [place] vs. transplanted heart: [place] heart Associated angina: without angina Qualified Code(s): I25.10 - Atherosclerotic heart disease of [place] coronary artery without angina pectoris (7) Thyroid disease Current Visit: No Status: Chronic Assessment and plan: -continue home synthroid (8) Vitamin B 12 deficiency Current Visit: No Status: Acute Assessment and plan: continue B12 supplementation - Subjective Interval history: Patient less confused this morning. AxOx 1(person). Patient sleepy but arousable. Patient given standing seroquel last night which seemed to prevent the aggitation that occured the night before. He did not require any PRN ativan. - Constitutional Vitals: Temp Pulse Resp BP Pulse Ox 98.1 F 97 16 120/75 98 01/05/17 22:36 01/05/17 22:36 01/05/17 22:36 01/05/17 22:36 01/05/17 22:36 General appearance: Present: A&O X 1 - Eye Eye exam: Present: sclera anicteric - ENT ENT exam: Present: mucous membranes moist - Respiratory Respiratory exam: Present: CTAB. Absent: rales, rhonchi, wheezes - Cardiovascular Cardiovascular exam: Present: RRR, +S1, +S2. Absent: gallop, rubs, systolic murmur - GI/Abdominal GI/Abdominal exam: Present: normal bowel sounds, soft. Absent: tenderness - Extremities Exam Extremities exam: Absent: pedal edema - Neurological Exam Neurological exam: Absent: oriented X3 (oriented to person only) - Psychiatric Psychiatric exam: Present: normal affect, normal mood - Skin Skin exam: Present: dry, warm Internal Medicine: Result - Labs CBC & Chem 7: 01/06/17 04:11 01/06/17 04:11 Labs: Short CBC 01/06/17 Range/Units 04:11 WBC 5.6 (4.3-11.1) K/mcL Hgb 9.4 L (12.9-16.9) g/dL Hct 30.2 L (37.5-50.1) % Plt Count 190 (140-400) K/mcL BMP 01/06/17 04:11 Sodium 141 Potassium 4.5 Chloride 107 Carbon Dioxide 27 BUN 26 Creatinine 1.74 H Glucose 97 Calcium 8.6 - ABG Interpretation ABG results: PT/INR, D-dimer PT 13.9 Seconds (9.4-12.1) H 01/02/17 18:07 - VTE Documentation of Mechanical Device: Venous foot pump, device Consult Discharge Plan - Plan Referrals: Cuong Giraldo Jr, CNP [Advanced Practice Nurse] - 01/17/17 10:30 am Edy Rizzo MD [Primary Care Provider] - <Jacobo Lynch - Last Filed: 01/06/17 18:34> Date of Encounter: 01/06/17 - Assessment and plan (1) Enterococcal septicemia Current Visit: Yes Status: Acute (2) Toxic metabolic encephalopathy Current Visit: Yes Status: Acute (3) FREDDY (acute kidney injury) Current Visit: Yes Status: Resolved (4) CVA, old, cognitive deficits Current Visit: No Status: Chronic (5) Coronary artery disease Current Visit: No Status: Chronic Qualifiers: Coronary Disease-Associated Artery/Lesion type: [place] artery [place] vs. transplanted heart: [place] heart Associated angina: without angina Qualified Code(s): I25.10 - Atherosclerotic heart disease of [place] coronary artery without angina pectoris (6) Myelodysplastic syndrome Current Visit: No Status: Chronic (7) Hypertension Current Visit: No Status: Chronic Qualifiers: Hypertension type: essential hypertension Qualified Code(s): I10 - Essential (primary) hypertension (8) CKD (chronic kidney disease) stage 3, GFR 30-59 ml/min Current Visit: Yes Status: Chronic - Constitutional Vitals: Temp Pulse Resp BP Pulse Ox 97.6 F 82 16 109/68 95 01/06/17 11:53 01/06/17 11:53 01/06/17 11:53 01/06/17 11:53 01/06/17 11:53 Internal Medicine: Result - Labs CBC & Chem 7: 01/06/17 04:11 01/06/17 04:11 Labs: Short CBC 01/06/17 Range/Units 04:11 WBC 5.6 (4.3-11.1) K/mcL Hgb 9.4 L (12.9-16.9) g/dL Hct 30.2 L (37.5-50.1) % Plt Count 190 (140-400) K/mcL BMP 01/06/17 04:11 Sodium 141 Potassium 4.5 Chloride 107 Carbon Dioxide 27 BUN 26 Creatinine 1.74 H Glucose 97 Calcium 8.6 - ABG Interpretation ABG results: PT/INR, D-dimer PT 13.9 Seconds (9.4-12.1) H 01/02/17 18:07 - Attending Attestation I examined this patient and my medical decision-making was reviewed with the Resident Physician on 01/06/17. I agree with the documented findings, disposition and treatment plan as described except to the extent set forth below. Mr. Smith is currently admitted for acute encephalopathy and enterococcal bacteremia. He remains high risk due to mental status and need for IV medications. Mr. Smith slept better last night with Seroquel but is tired today. No fever or chills. Tolerating IV abx. No GI issues. Family at bedside and updated. Exam alert. Comfortable Mucus membranes dry Heart reg No wheeze Abd soft No edema I/P 1. Enterococcal bacteremia 2. Encephalopathy Further diagnoses and plan as above.
[2017-01-06] MEDS: Famotidine 20 MG/2 ML VIAL IVP SCH (10:02)
[2017-01-06] MEDS: Cyanocobalamin (B-12) 1,000 MCG TABLET PO SCH (10:02)
[2017-01-06] MEDS: Aspirin Enteric Coated 81 MG Tablet PO SCH (10:02)
[2017-01-06] MEDS ORDERED: 0.9 % Sodium Chloride 1,000 ML IVC SCH (10:30)
--- NOTE | 2017-01-06 14:14 | Infectious Disease Progress No ---
Date of Encounter: 01/06/17 Time of Encounter: 14:11 - Assessment and Plan (1) Enterococcal septicemia Current Visit: Yes Status: Acute Since admission he has met two SIRS criteria of elevated white blood count, tachycardia. Secondary to bacteremia. Improved. Leukocytosis has resolved. Patient continues to have some intermittent tachycardia, but overall is improved as well. Blood cultures collected on 01/02/17 are +2 out of 2 sets for enterococcus species. Final ID and sensitivities are pending. (2) Bacteremia due to Enterococcus Current Visit: Yes Status: Acute Causative organism: Enterococcus species. Final ID and sensitivities are pending. Source likely UTI. Recent discharge on 12/23/18 following admission for UTI with Urine culture positive for enterococcus faecalis on 12/19/16. He was initially treated with Rocephin and transitioned to ampicillin upon discharge for a total of 7 days of treatment. Urine culture collected 01/02/17 shows no growth to date. Blood cultures obtained 01/02/17 are +2 out of 2 sets. Repeat blood cultures drawn 01/04/17 are no growth to date 2 sets. Continue ampicillin 2 grams IV Q6H (renally dose-adjusted to 8 grams). When discharged, can go home/to rehab on 24 hour infusion pump to equal 8 grams IV daily infused over 24 hours. Duration of treatment 2 weeks since patient does not have any endocarditis stigmata. The patient does here is a chance that he has seeded the AICD but at this point , I think we will take the conservative route, treat for 2 weeks, and repeat blood cultures one week after stopping antibiotics. If bacteremia persists, will d/w family again to see what options do they want to pursue. Patient is not a candidate to remove the AICD. Treat through 01/16/17. Re-check blood cultures 01/23/17. Check weekly CBC, BUN/Cr every Monday for the duration of IV antibiotics therapy. Weekly EPIV care per protocol. (3) Acute kidney injury Current Visit: No Status: Acute Continue management per primary team. (4) Encephalopathy Current Visit: Yes Status: Acute Continue management per primary team. - Subjective Interval history: Patient seen and examined. No acute events noted overnight. Patient's with his 2 sons at the bedside this morning. Difficult to arouse and minimally responsive during the exam. Denies any acute complaints. No further review of systems information able to be obtained from the patient. Infect Dis PN-Objective Data - Labs CBC & Chem 7: 01/06/17 04:11 01/06/17 04:11 Labs: Laboratory Results - last 24 hr 01/06/17 01/06/17 04:11 04:11 WBC 5.6 RBC 3.25 L Hgb 9.4 L Hct 30.2 L MCV 92.9 MCH 28.9 MCHC 31.1 L RDW 24.3 H Plt Count 190 MPV 11.3 Sodium 141 Potassium 4.5 Chloride 107 Carbon Dioxide 27 BUN 26 Creatinine 1.74 H Est GFR ( Amer) 45 L Est GFR (Non-Af Amer) 37 L BUN/Creatinine Ratio 15 Glucose 97 Calculated Osmolality 297 Calcium 8.6 Cultures: Cultures 01/04/17 14:36 Blood Culture - Preliminary Peripheral Venipuncture No growth. 01/04/17 14:36 Blood Culture - Preliminary Peripheral Venipuncture No growth. 01/02/17 18:07 Blood Culture - Final Peripheral Venipuncture Enterococcus species 01/02/17 18:07 Blood Culture - Final Peripheral Venipuncture Enterococcus species 01/02/17 17:44 Urine Culture - Final Urine,Random-Not Preferred No growth. Exam - Constitutional Vitals: Temp Pulse Resp BP Pulse Ox 97.6 F 82 16 109/68 95 01/06/17 11:53 01/06/17 11:53 01/06/17 11:53 01/06/17 11:53 01/06/17 11:53 General appearance: average body habitus, no acute distress, no febrile - Head Head exam: Present: atraumatic, normal inspection, normocephalic - Eye Eye exam: Present: normal appearance, PERRL Pupils: Present: normal accommodation - ENT ENT exam: Present: mucous membranes moist - Neck Neck exam: Present: normal inspection - Respiratory Respiratory exam: Present: CTAB. Absent: rales, respiratory distress, rhonchi, wheezes - Cardiovascular Cardiovascular exam: Present: RRR, +S1, +S2 - GI/Abdominal GI/Abdominal exam: Present: normal bowel sounds, soft. Absent: distended, tenderness - Extremities Exam Extremities exam: Present: normal inspection. Absent: joint swelling, pedal edema, tenderness - Neurological Exam Neurological exam: Present: altered. Absent: facial droop - Skin Skin exam: Present: dry, intact, normal color, warm - VTE Documentation of Mechanical Device: Venous foot pump, device Consult Discharge Plan - Plan Referrals: Cuong Giraldo Jr, CNP [Advanced Practice Nurse] - 01/17/17 10:30 am Edy Rizzo MD [Primary Care Provider] -
[2017-01-06] MEDS: Famotidine 20 MG TABLET PO SCH (20:34)
[2017-01-07] MEDS: SODIUM CHLORIDE 0.9% IVPB SCH ×5 (03:00→23:16)
[2017-01-07] MEDS: AMPICILLIN IVPB SCH ×5 (03:00→23:16)
[2017-01-07] MEDS: *HR* Heparin 5,000 UNIT/ML VIAL SQ SCH ×2 (06:20→17:10)
[2017-01-07 06:36] LABS: Hematocrit 30.2 % (37.5-50.1); Hemoglobin 9.5 g/dL (12.9-16.9); Mean Corpuscular HGB Conc 31.5 g/dL (31.6-35.5); Mean Corpuscular Hemoglobin 29.2 pg (28.0-33.3); Mean Corpuscular Volume 92.9 fL (83.0-100.0); Mean Platelet Volume 10.8 fL (9.4-12.4); Platelet Count 185 K/mcL (140-400); Red Blood Count 3.25 M/mcL (4.19-5.50); Red Cell Distribution Width 24.4 % (11.5-14.5)
[2017-01-07 06:47] LABS: Calcium 8.4 mg/dL (8.6-10.8); Potassium 4.3 mEq/L (3.5-4.5)
[2017-01-07] MEDS: Aspirin Enteric Coated 81 MG Tablet PO SCH (09:40)
[2017-01-07] MEDS: Famotidine 20 MG TABLET PO SCH ×2 (09:41→17:11)
[2017-01-07] MEDS: Cyanocobalamin (B-12) 1,000 MCG TABLET PO SCH (09:41)
--- NOTE | 2017-01-07 13:42 | Internal Med Progress Note ---
<Paul Miranda Ziyad - Last Filed: 01/07/17 16:13> Date of Encounter: 01/07/17 Time of Encounter: 13:40 - Assessment and plan (1) Bacteremia due to Enterococcus Current Visit: Yes Status: Acute Assessment and plan: Likely cause of patient's AMS Patient's blood cultures positive for Enterococcus species. Sensitive to Ampicillin Urine Cx negative. Checked TTE to look for endocarditis. No vegetations seen. Per ID's recommendations: d/c'd unasyn Started ampicillin 12 grams continuous pump (pharmacy to recommend dosing since CrCl 33) duration of treatment 2 weeks (2) Delirium due to general medical condition Current Visit: Yes Status: Acute Assessment and plan: Delirium consistent Patient started on 25mg seroquel qHS which seemed to help better. PRN ativan but did not require any overnight. Patient was AxO x3 3 on d/c on 12/23/16. Patient currently AxO 1 currently. Similar presentation last time with UTI. Likely delierium caused by toxic metabolic encephalopathy from bacteremia. Continue medical management (3) Hypertension Current Visit: No Status: Chronic Assessment and plan: Normotensive off medicine Continue to hold metoprolol for now Qualifiers: Hypertension type: essential hypertension Qualified Code(s): I10 - Essential (primary) hypertension (4) Coronary artery disease Current Visit: No Status: Chronic Assessment and plan: Stable, Chronic continue home ASA, Lipitor holding metoprolol as BP has been normal to low Qualifiers: Coronary Disease-Associated Artery/Lesion type: [place] artery [place] vs. transplanted heart: [place] heart Associated angina: without angina Qualified Code(s): I25.10 - Atherosclerotic heart disease of [place] coronary artery without angina pectoris (5) Thyroid disease Current Visit: No Status: Chronic Assessment and plan: continue home synthroid (6) Vitamin B 12 deficiency Current Visit: No Status: Acute Assessment and plan: continue B12 supplementation - Subjective Interval history: Patient seen and examined. Alert and oriented x1. Reports no complaints or concerns. Denies chest pain, dyspnea, cough, N/V/D, dysuria, or leg pain/ swelling. - Constitutional Vitals: Temp Pulse Resp BP Pulse Ox 97.4 F L 95 16 125/76 98 01/07/17 11:37 01/07/17 11:37 01/07/17 11:37 01/07/17 11:37 01/07/17 11:37 General appearance: Present: A&O X 1, no acute distress - Head Head exam: Present: atraumatic, normocephalic - Eye Eye exam: Present: sclera anicteric - ENT ENT exam: Present: mucous membranes moist - Respiratory Respiratory exam: Present: CTAB. Absent: rales, rhonchi, wheezes - Cardiovascular Cardiovascular exam: Present: RRR, +S1, +S2. Absent: diastolic murmur, systolic murmur - GI/Abdominal GI/Abdominal exam: Present: normal bowel sounds, soft. Absent: distended, rigid , tenderness - Extremities Exam Extremities exam: Present: warm. Absent: pedal edema, tenderness Internal Medicine: Result - Labs CBC & Chem 7: 01/07/17 06:25 01/07/17 06:25 Labs: Short CBC 01/07/17 Range/Units 06:25 WBC 5.7 (4.3-11.1) K/mcL Hgb 9.5 L (12.9-16.9) g/dL Hct 30.2 L (37.5-50.1) % Plt Count 185 (140-400) K/mcL BMP 01/07/17 06:25 Sodium 141 Potassium 4.3 Chloride 109 Carbon Dioxide 28 BUN 24 Creatinine 1.62 H Glucose 89 Calcium 8.4 L - ABG Interpretation ABG results: PT/INR, D-dimer PT 13.9 Seconds (9.4-12.1) H 01/02/17 18:07 - VTE Documentation of Mechanical Device: Venous foot pump, device Consult Discharge Plan - Plan Referrals: Cuong Giraldo Jr, CNP [Advanced Practice Nurse] - 01/17/17 10:30 am Edy Rizzo MD [Primary Care Provider] - <Jacobo Lynch - Last Filed: 01/07/17 19:03> Date of Encounter: 01/07/17 - Assessment and plan (1) Enterococcal septicemia Current Visit: Yes Status: Acute (2) Toxic metabolic encephalopathy Current Visit: Yes Status: Acute (3) FREDDY (acute kidney injury) Current Visit: Yes Status: Resolved (4) CVA, old, 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 transplanted heart: [place] heart Associated angina: without angina Qualified Code(s): I25.10 - Atherosclerotic heart disease of [place] coronary artery without angina pectoris (6) Myelodysplastic syndrome Current Visit: No Status: Chronic (7) Hypertension Current Visit: No Status: Chronic Qualifiers: Hypertension type: essential hypertension Qualified Code(s): I10 - Essential (primary) hypertension (8) CKD (chronic kidney disease) stage 3, GFR 30-59 ml/min Current Visit: Yes Status: Chronic - Constitutional Vitals: Temp Pulse Resp BP Pulse Ox 98.4 F 88 16 128/76 96 01/07/17 18:54 01/07/17 18:54 01/07/17 18:54 01/07/17 18:54 01/07/17 18:54 Internal Medicine: Result - Labs CBC & Chem 7: 01/07/17 06:25 01/07/17 06:25 Labs: Short CBC 01/07/17 Range/Units 06:25 WBC 5.7 (4.3-11.1) K/mcL Hgb 9.5 L (12.9-16.9) g/dL Hct 30.2 L (37.5-50.1) % Plt Count 185 (140-400) K/mcL BMP 01/07/17 06:25 Sodium 141 Potassium 4.3 Chloride 109 Carbon Dioxide 28 BUN 24 Creatinine 1.62 H Glucose 89 Calcium 8.4 L - ABG Interpretation ABG results: PT/INR, D-dimer PT 13.9 Seconds (9.4-12.1) H 01/02/17 18:07 - Attending Attestation I examined this patient and my medical decision-making was reviewed with the Resident Physician on 01/07/17. I agree with the documented findings, disposition and treatment plan as described except to the extent set forth below. Mr. Smith is currently admitted for enterococcal bacteremia. He remains moderate to high risk due to potential for worsening infectious status. Mr. Smith is alert and interactive. No fever or chills. No GI issues. No family at bedside. Exam alert. Comfortable Mucus membranes dry Heart reg No wheeze No edema I/p Enterococcal bacteremia dementia Awaiting placement in SNF Further diagnoses and plan as above.
[2017-01-08] MEDS: SODIUM CHLORIDE 0.9% IVPB SCH ×3 (05:50→18:08)
[2017-01-08] MEDS: *HR* Heparin 5,000 UNIT/ML VIAL SQ SCH ×2 (05:50→18:09)
[2017-01-08] MEDS: AMPICILLIN IVPB SCH ×3 (05:50→18:08)
[2017-01-08] MEDS: Aspirin Enteric Coated 81 MG Tablet PO SCH (09:37)
[2017-01-08] MEDS: Cyanocobalamin (B-12) 1,000 MCG TABLET PO SCH (09:37)
[2017-01-08] MEDS: Famotidine 20 MG TABLET PO SCH ×2 (09:37→16:46)
--- NOTE | 2017-01-08 15:26 | Internal Med Progress Note ---
Date of Encounter: 01/08/17 Time of Encounter: 10:30 - Assessment and plan (1) Enterococcal septicemia Current Visit: Yes Status: Acute Assessment and plan: Currently on IV ampicillin aroud the clock. Repeat cultures are negative. Will need follow up with ID after discharge. (2) Toxic metabolic encephalopathy Current Visit: Yes Status: Acute Assessment and plan: -Seroquel started due to agitation but has caused daytime somnolence. Will hold tonight and reassess. 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 transplanted heart: [place] heart Associated angina: without angina Qualified Code(s): I25.10 - Atherosclerotic heart disease of [place] coronary artery without angina pectoris (5) Myelodysplastic syndrome Current Visit: No Status: Chronic Assessment and plan: Chronic disease (6) Hypertension Current Visit: No Status: Chronic Assessment and plan: Normotensive off medicine Continue to hold metoprolol for now Qualifiers: Hypertension type: essential hypertension Qualified Code(s): I10 - Essential (primary) hypertension (7) CKD (chronic kidney disease) stage 3, GFR 30-59 ml/min Current Visit: Yes Status: Chronic Assessment and plan: Per renal service - Subjective Interval history: Mr Smith is currently admitted for acute encephalopathy due to enterococcal bacteremia from UTI. He remains moderate to high risk due to continuous IV abx and med adjustments Mr. Smith seems more confused this AM. He has no fever or chills. No GI symptoms. Son is at bedside and was updated. Pt has no specific complaints at this time. He has been sitter free this weekend. - Constitutional Vitals: Temp Pulse Resp BP Pulse Ox 97.8 F 83 14 123/78 92 01/08/17 12:04 01/08/17 12:04 01/08/17 12:04 01/08/17 12:04 01/08/17 12:04 General appearance: Present: A&O X 1 - Head Head exam: Present: normocephalic - Eye Eye exam: Present: conjuntiva pink - ENT ENT exam: Present: mucous membranes dry - Respiratory Respiratory exam: Present: decreased breath sounds. Absent: rales, rhonchi, wheezes - Cardiovascular Cardiovascular exam: Present: distant heart sounds, RRR. Absent: tachycardia - GI/Abdominal GI/Abdominal exam: Present: soft. Absent: tenderness - Extremities Exam Extremities exam: Present: warm. Absent: tenderness - Neurological Exam Neurological exam: Present: alert - Skin Skin exam: Present: warm. Absent: rash Internal Medicine: Result - Labs CBC & Chem 7: 01/07/17 06:25 01/07/17 06:25 - ABG Interpretation ABG results: PT/INR, D-dimer PT 13.9 Seconds (9.4-12.1) H 01/02/17 18:07 - VTE Documentation of Mechanical Device: Venous foot pump, device Consult Discharge Plan - Plan Referrals: Cuong Giraldo Jr, CNP [Advanced Practice Nurse] - 01/17/17 10:30 am Edy Rizzo MD [Primary Care Provider] -
[2017-01-09] MEDS: AMPICILLIN IVPB SCH ×4 (00:30→16:45)
[2017-01-09] MEDS: SODIUM CHLORIDE 0.9% IVPB SCH ×4 (00:30→16:45)
[2017-01-09 06:08] LABS: Calcium 8.6 mg/dL (8.6-10.8); Potassium 4.3 mEq/L (3.5-4.5)
[2017-01-09] MEDS: *HR* Heparin 5,000 UNIT/ML VIAL SQ SCH (06:10)
[2017-01-09 06:38] LABS: Hematocrit 32.1 % (37.5-50.1); Hemoglobin 10.1 g/dL (12.9-16.9); Mean Corpuscular HGB Conc 31.5 g/dL (31.6-35.5); Mean Corpuscular Hemoglobin 29.4 pg (28.0-33.3); Mean Corpuscular Volume 93.6 fL (83.0-100.0); Mean Platelet Volume 11.5 fL (9.4-12.4); Platelet Count 183 K/mcL (140-400); Red Blood Count 3.43 M/mcL (4.19-5.50); Red Cell Distribution Width 24.3 % (11.5-14.5)
--- NOTE | 2017-01-09 08:37 | Infectious Disease Progress No ---
Date of Encounter: 01/09/17 Time of Encounter: 08:37 - Assessment and Plan (1) Bacteremia due to Enterococcus Current Visit: Yes Status: Acute Causative organism: Enterococcus species. Source likely previous UTI. Recent discharge on 12/23/18 following admission for UTI with Urine culture positive for enterococcus faecalis on 12/19/16. He was initially treated with Rocephin and transitioned to ampicillin upon discharge for a total of 7 days of treatment. Urine culture collected 01/02/17 show no growth to date. Blood cultures obtained 01/02/17 are +2 for enterococcus x 2 sets. Repeat blood cultures drawn 01/04/17 revealed no growth to date 2 sets. Recommendations: Continue ampicillin 2 grams IV Q6H (renally dose-adjusted to 8 grams). Upon discharged, can go home/to rehab on 24 hour infusion pump to equal 8 grams IV daily infused over 24 hours. Duration of treatment 2 weeks since patient does not have any endocarditis stigmata. The patient does here is a chance that he has seeded the AICD but at this point , I think we will take the conservative route, treat for 2 weeks, and repeat blood cultures one week after stopping antibiotics. If bacteremia persists, will d/w family again to see what options do they want to pursue. Patient is not a candidate to remove the AICD. Treat through 01/16/17. Re-check blood cultures 01/23/17. Check weekly CBC, BUN/Cr every Monday for the duration of IV antibiotics therapy. Weekly EPIV care per protocol. (2) Enterococcal septicemia Current Visit: Yes Status: Acute Since admission he has met two SIRS criteria of elevated white blood count, tachycardia. Secondary to bacteremia. Improved. Leukocytosis has resolved. Patient continues to have some intermittent tachycardia, but overall is improved as well. Blood cultures collected on 01/02/17 are +2 out of 2 sets for enterococcus species. (3) Encephalopathy Current Visit: Yes Status: Acute Continue management per primary team. (4) Acute kidney injury Current Visit: No Status: Acute Continue management per primary team. - Subjective Interval history: Patient seen and examined. Patient resting comfortably in bed after eating breakfast. Patient is non-conversant this morning and denies any new complaints. Patient follows basic commands and family is not present during time of exam. Discharge plan noted Infect Dis PN-Objective Data - Labs CBC & Chem 7: 01/09/17 05:45 08/14/17 05:45 Labs: Laboratory Results - last 24 hr 01/09/17 01/09/17 05:45 05:45 WBC 7.3 RBC 3.43 L Hgb 10.1 L Hct 32.1 L MCV 93.6 MCH 29.4 MCHC 31.5 L RDW 24.3 H Plt Count 183 MPV 11.5 Sodium 139 Potassium 4.3 Chloride 105 Carbon Dioxide 27 BUN 24 Creatinine 1.63 H Est GFR ( Amer) 49 L Est GFR (Non-Af Amer) 40 L BUN/Creatinine Ratio 15 Glucose 101 H Calculated Osmolality 292 Calcium 8.6 Magnesium 2.0 Exam - Constitutional Vitals: Temp Pulse Resp BP Pulse Ox 97.8 F 81 14 132/86 95 01/09/17 07:26 01/09/17 07:26 01/09/17 07:26 01/09/17 07:26 01/09/17 07:26 General appearance: cooperative, no acute distress, no febrile - Head Head exam: Present: atraumatic, normal inspection, normocephalic - Eye Eye exam: Present: PERRL, conjuntiva pink - ENT ENT exam: Present: mucous membranes moist, normal oropharynx - Neck Neck exam: Present: normal inspection. Absent: lymphadenopathy, tenderness, thyromegaly - Respiratory Respiratory exam: Present: CTAB. Absent: rales, rhonchi, wheezes - Cardiovascular Cardiovascular exam: Present: RRR, +S1, +S2 Additional comments: AICD left upper chest - GI/Abdominal GI/Abdominal exam: Present: normal bowel sounds, soft. Absent: guarding, rebound, tenderness - Extremities Exam Extremities exam: Present: normal inspection. Absent: pedal edema, tenderness - Neurological Exam Neurological exam: Present: alert, altered. Absent: oriented X3 Additional comments: A & O x1 - Skin Skin exam: Present: dry, intact, warm - VTE Documentation of Mechanical Device: Venous foot pump, device Consult Discharge Plan - Plan Referrals: Cuong Giraldo Jr, CNP [Advanced Practice Nurse] - 01/17/17 10:30 am Edy Rizzo MD [Primary Care Provider] -
[2017-01-09] MEDS: Aspirin Enteric Coated 81 MG Tablet PO SCH (08:50)
[2017-01-09] MEDS: Famotidine 20 MG TABLET PO SCH (08:50)
[2017-01-09] MEDS: Cyanocobalamin (B-12) 1,000 MCG TABLET PO SCH (08:51)
--- NOTE | 2017-01-09 09:20 | Physician Discharge Referral ---
ExtendedCare Referral Info Provider in Charge after Transfer: PCP Institutional Level of Care: Skilled - Diagnosis (1) Bacteremia due to Enterococcus Priority: Primary Status: Acute (2) UTI (urinary tract infection) Priority: Secondary Status: Acute (3) Delirium due to general medical condition Priority: Secondary Status: Acute (4) Toxic metabolic encephalopathy Priority: Secondary Status: Acute (5) Hypertension Priority: Secondary Status: Chronic (6) Coronary artery disease Priority: Secondary Status: Chronic (7) Thyroid disease Priority: Secondary Status: Chronic (8) Vitamin B 12 deficiency Priority: Secondary Status: Acute Prognosis: Fair Aware of Diagnosis: Family Aware of Prognosis: Family - Transfer Medications Prescriptions: Ampicillin Sodium 2 gm IV Q6HR #40 vial Home Medications: Aspirin [Adult Low Dose Aspirin EC] 81 mg PO DAILY 06/19/15 [History] Atorvastatin [Lipitor] 40 mg PO HS 12/19/16 [History] Levothyroxine [Synthroid] 100 mcg PO 0630 12/19/16 [History] Ampicillin Sodium 2 gm IV Q6HR #40 vial 01/09/17 [Rx] Cyanocobalamin (B-12) [Vitamin B12] 1,000 mcg PO DAILY tab 01/09/17 [Rx] Famotidine [Pepcid] 20 mg PO BIDAC tab 01/09/17 [Rx] Heparin 5,000 unit SQ Q12HR vial 01/09/17 [Rx] Allergies/Adverse Reactions: Allergies No Known Allergies Allergy (Verified 12/19/16 10:31) - Respiratory Orders None Smoking Cessation: Smoking cessation has been advised. For more information, call the [place] Tobacco Quit Line at 7-616-HFRS-NOW. - Lab Orders Lab Orders: CBC (Weekly), Other (include drug levels w/frequency) (Weekly BUN/ Cr. Check, Repeat Blood Cultures on 01/23/17.) - Ancillary Orders May use pressure relief devices daily prn - Advance Directives Code Status: DNR-Comfort Care - Mobility Orders Other (Per PT recs) - Rehabiliation Orders Rehab Potential: Fair Rehab Orders: ROM Exercises, Evaluation for Physical Therapy, Evaluation for Occupational Therapy - Treatments Skin tear care topically daily PRN per policy - Diet Orders Cardiac House Supplement per Dietary: Ensure Plus BID with breakfast and dinner. CERTIFICATION: I certify that the transfer of the above named patient to an Extended Care Facility is necessary for the continuing treatment of the diagnosis listed. The above information is true and accurate reflection of patient's current condition. Confidential - Redisclosure prohibited without a patient's written consent.
--- NOTE | 2017-01-09 09:29 | Discharge Summary ---
<Tyler Hernandez - Last Filed: 01/09/17 14:32> Date of Encounter: 01/09/17 Time of Encounter: 08:30 - Discharge Diagnosis (1) Bacteremia due to Enterococcus Priority: Primary Status: Acute (2) UTI (urinary tract infection) Priority: Secondary Status: Acute Qualifiers: Urinary tract infection type: site unspecified Hematuria presence: with hematuria Qualified Code(s): N39.0 - Urinary tract infection, site not specified; R31.9 - Hematuria, unspecified (3) Delirium due to general medical condition Priority: Secondary Status: Acute (4) Toxic metabolic encephalopathy Priority: Secondary Status: Acute (5) Hypertension Priority: Secondary Status: Chronic Qualifiers: Hypertension type: essential hypertension Qualified Code(s): I10 - Essential (primary) hypertension (6) Coronary artery disease Priority: Secondary Status: Chronic Qualifiers: Coronary Disease-Associated Artery/Lesion type: ely shoshone artery [place] vs. transplanted heart: ely shoshone heart Associated angina: without angina Qualified Code(s): I25.10 - Atherosclerotic heart disease of ely shoshone coronary artery without angina pectoris (7) Thyroid disease Priority: Secondary Status: Chronic (8) Vitamin B 12 deficiency Priority: Secondary Status: Acute - Discharge Medications Prescriptions: Ampicillin Sodium 2 gm IV Q6HR #40 vial Home Medications: Aspirin [Adult Low Dose Aspirin EC] 81 mg PO DAILY 06/19/15 [History] Atorvastatin [Lipitor] 40 mg PO HS 12/19/16 [History] Levothyroxine [Synthroid] 100 mcg PO 0630 12/19/16 [History] Ampicillin Sodium 2 gm IV Q6HR #40 vial 01/09/17 [Rx] Cyanocobalamin (B-12) [Vitamin B12] 1,000 mcg PO DAILY tab 01/09/17 [Rx] Famotidine [Pepcid] 20 mg PO BIDAC tab 01/09/17 [Rx] Heparin 5,000 unit SQ Q12HR vial 01/09/17 [Rx] Allergies/Adverse Reactions: Allergies No Known Allergies Allergy (Verified 12/19/16 10:31) Procedures/tests Complete & Pending: CXR: "FINDINGS: The cardiac silhouette is mildly enlarged and stable. Improved aeration on the left with small residual left pleural effusion. The right lung is clear. No overt failure. Left-sided AICD device is in place. XR/XR chest 1V portable IMPRESSION: Small left pleural effusion. Mild cardiomegaly without failure." CT head: "FINDINGS: BRAIN/VENTRICLES: There is no acute intracranial hemorrhage, mass effect or midline shift. No abnormal extra-axial fluid collection. Moderate periventricular white matter changes are again seen. There is again noted to be encephalomalacia in the right anterior temporal lobe and inferior left frontal lobe consistent with remote infarcts with ex vacuo dilatation of the right temporal horn of lateral ventricle. The rico-white differentiation is maintained without evidence of an acute infarct. There is no evidence of hydrocephalus. There has been no significant interval change compared to prior. ORBITS: The visualized portion of the orbits demonstrate no acute abnormality. SINUSES: The visualized paranasal sinuses and mastoid air cells demonstrate no acute abnormality. SOFT TISSUES/SKULL: No acute abnormality of the visualized skull or soft tissues. CT/CT head/brain wo con IMPRESSION: No acute intracranial abnormality. Remote infarcts, atrophy, and chronic white matter changes are similar in appearance." Echo: "Impressions: LVEF 40%. Normal LV chamber size. Global left ventricular systolic dysfunction. Mild left ventricular diastolic dysfunction. Normal right ventricular structure and function. Mild mitral regurgitation. Unable to estimate RVSP due to lack of TR jet. No obvious vegetations visualized, but study is inadequate to thoroughly evaluate for endocarditis. " Date of admission: 01/04/17 15:46 Primary care physician: Edy Rizzo MD Consults: 01/04/17 15:50 Consult to Urology [CONS] Routine Consulting Provider: [facility] [place] Reason for Consult: Pt of Dr. Vazquez. Bladder lesion. Call Completed: Yes 01/05/17 10:47 Consult to Invasive Line Access Team [CONS] Routine Reason for Consult: home atb Line Type: EPIV Discharging clinician: Tyler Hernandez Anticipated date of discharge: 01/09/17 - Patient Status Disposition: Transfer SNF Condition: Fair Functional capacity at discharge: uses cane/walker Overall status at discharge: patient is progressing back to baseline - Discharge Instructions Follow Up With: Cuong Giraldo Jr, MERCANT[employer] REPORTER [Advanced Practice Nurse] - 01/17/17 10:30 am dEy Rizzo MD [Primary Care Provider] - Additional Instructions: Please follow up with your primary care provider within one week of discharge from [facility] Please take all medications as prescribed. Please return to the hospital if you experience new or worsening symptoms. - Diet and Activity Activity: as per physical therapy Diet: other (Cardiac diet with supplementation BID of Ensure plus.) Interval History: Patient is AxO x 1 today. He is able to feed himself breakfast this morning. He has not required a sitter all weekend. He has not been groggy during the day since discontinuing seroquel qHS. Hospital course: Mr. Smith is a 86 year old male c PMHx of dementia, HTN, HLD, CAD, TIA, CVA, hypothyroidism, pacemaker/AICD, recurrent UTIs reported to the hospital for AMS. Patient was found to have an enteroccocal UTI on last admission at the end of November. Patient was d/c'd home on PO abx to which the bug was sensitive. Patient was noted to be more confused by family and brought back in. It was presumed that patient had a reoccurance of his UTI. Patient was found to be bacteremic on testing. ID was consulted and managed antibiotics eventually starting patient on a continuous pump of ampicillin. It is suspected that the patient's pacer leads may have become seeded during last hospitalization. Patient is not a candidate for removal so ID suggested course of 2 weeks of continuous infusion of abx. Patient had a TTE echo which showed no signs of endocarditis. Through out stay patient has been altered from baseline per family. Pt is only axO x 1 but was noted upon last d/c to be ax O x3 and family reports patient normally knows where he is, but he currently does not. Patient became aggitated overnight early on during admission, but responded poorly to haldol to treat this delerium. Patient was switched to seroquel which improved delerium, but made patient somnolent during the day as well so was also stopped. Patient has not required sitter last several days. Patient will be d/c 'd to SNF/ECF. - Time Spent with Patient Total time spent providing and/or coordinating discharge services: - Constitutional Vitals: Temp Pulse Resp BP Pulse Ox 97.8 F 81 14 132/86 95 01/09/17 07:26 01/09/17 07:26 01/09/17 07:26 01/09/17 07:26 01/09/17 07:26 General appearance: Present: A&O X 1 - Eye Eye exam: Present: sclera anicteric - ENT ENT exam: Present: mucous membranes moist - Respiratory Respiratory exam: Present: CTAB. Absent: rales, rhonchi, wheezes - Cardiovascular Cardiovascular exam: Present: distant heart sounds, RRR. Absent: gallop, rubs, systolic murmur - GI/Abdominal GI/Abdominal exam: Present: normal bowel sounds, soft. Absent: tenderness - Extremities Exam Extremities exam: Present: warm. Absent: pedal edema - Neurological Exam Neurological exam: Present: alert. Absent: oriented X3 - Skin Skin exam: Present: dry, warm - VTE Documentation of Mechanical Device: Venous foot pump, device <Jacobo Lynch - Last Filed: 01/09/17 19:47> Date of Encounter: 01/09/17 - Discharge Diagnosis (1) Enterococcal septicemia Priority: Primary Status: Acute (2) Toxic metabolic encephalopathy Status: Acute (3) CVA, old, cognitive deficits Priority: Secondary Status: Chronic (4) Coronary artery disease Status: Chronic Qualifiers: Coronary Disease-Associated Artery/Lesion type: ely [place] artery [place] vs. transplanted heart: ely shosh[place] heart Associated angina: without angina Qualified Code(s): I25.10 - Atherosclerotic heart disease of ely [place]osh[place] coronary artery without angina pectoris (5) Myelodysplastic syndrome Priority: Secondary Status: Chronic (6) Hypertension Status: Chronic Qualifiers: Hypertension type: essential hypertension Qualified Code(s): I10 - Essential (primary) hypertension (7) CKD (chronic kidney disease) stage 3, GFR 30-59 ml/min Priority: Secondary Status: Chronic Date of admission: 01/04/17 15:46 Primary care physician: Edy Rizzo MD Consults: 01/04/17 15:50 Consult to Urology [CONS] Routine Consulting Provider: Urology [place] Reason for Consult: Pt of Dr. Vazquez. Bladder lesion. Call Completed: Yes 01/05/17 10:47 Consult to Invasive Line Access Team [CONS] Routine Reason for Consult: home atb Line Type: EPIV Hospital course: Mr. Smith is a 86 year old male - Time Spent with Patient Total time spent providing and/or coordinating discharge services: 39min - Constitutional Vitals: Temp Pulse Resp BP Pulse Ox 97.7 F 89 14 102/69 98 01/09/17 14:47 01/09/17 14:47 01/09/17 14:47 01/09/17 14:47 01/09/17 14:47 - Attending Attestation I examined this patient and my medical decision-making was reviewed with the Resident Physician on 01/09/17. I agree with the documented findings, disposition and treatment plan as described except to the extent set forth below. Mr. Smith was admitted for acute encephalopathy due to enterococcal bacteremia. He is afebrile and vitals stable. He is ready for discharge to SNF. Exam Alert. Heart reg No wheeze Abd soft Plan D/C to SNF Complete 2 weeks IV ampicillin Follow up with ID
[2017-01-09 14:48] VITALS: BP 102/69
[2017-01-10] MEDS ORDERED: Famotidine 20 MG TABLET PO SCH (09:00)
== END 2017-01-09 17:03 | DRG 871 ==
LOC: EMEROO 17:20 → 3BNU 17:20 → SUATTDRO 21:08
PROVIDERS: ADMIT Internal Medicine; ATTEND Internal Medicine

== ENCOUNTER 2017-02-27 11:10 | Inpatient (IN) ==
[2017-02-27] MEDS ORDERED: 0.9 % Sodium Chloride 1,000 ML IVC ONE ×3 (11:22→12:14)
--- NOTE | 2017-02-27 11:50 | Emergency Department Note ---
Disposition Clinical Impression: Septic shock, Cardiac enzymes elevated Altered mental status, unspecified Qualifiers: Altered mental status type: somnolence Qualified Code(s): R40.0 - Somnolence Pneumonia Qualifiers: Pneumonia type: due to unspecified organism Laterality: right Lung location: lower lobe of lung Qualified Code(s): J18.1 - Lobar pneumonia, unspecified organism Disposition: Admitted As Inpatient Condition: Fair Time of Disposition: 15:41 Altered Mental Status HPI - General Chief Complaint: ED Altered Mental Status Stated Complaint: AMS Time Seen by Provider: 02/27/17 11:16 Source: EMS Limitations: altered mental status Nursing Notes Reviewed: Yes Vital Signs Reviewed: Yes - History of Present Illness HPI Narrative: The patient is an 86 y/o M DNRCC who presents with altered mental status and arrived by EMS from shelter. Per EMS and nurse, the patient had altered mental status last night but was worse today. Unable to obtain history from patient. The patient is not verbal but he responds to pain. I later spoke with the patient's son who states that the patient was told he had pneumonia on this past Monday and was given antibiotics. The son states that this is not his baseline. - Related Data Home Medications Medication Instructions Recorded Confirmed Aspirin [Adult Low Dose Aspirin EC] 81 mg PO DAILY 06/19/15 02/27/17 Atorvastatin [Lipitor] 40 mg PO HS 12/19/16 02/27/17 Levothyroxine [Synthroid] 100 mcg PO 0630 12/19/16 02/27/17 Albuterol Neb [Proventil Neb] 2.5 mg IH Q4H PRN 02/27/17 02/27/17 Gentamicin OPTH Soln 1 drop RIGHT EYE QID 02/27/17 02/27/17 Lactobacillus Acidophilus 1 cap PO DAILY 02/27/17 02/27/17 [Acidophilus] Loperamide [Imodium] 4 mg PO BID PRN 02/27/17 02/27/17 Melatonin 10 mg PO HS PRN 02/27/17 02/27/17 Memantine HCl 10 mg PO BID 02/27/17 02/27/17 Metoprolol Succinate 25 mg PO DAILY 02/27/17 02/27/17 Naproxen Sodium [All Day Pain 220 mg PO BID PRN 02/27/17 02/27/17 Relief] Spironolactone [Aldactone] 12.5 mg PO DAILY 02/27/17 02/27/17 Tamsulosin [Flomax] 0.4 mg PO DAILY 02/27/17 02/27/17 levoFLOXacin [Levaquin] 500 mg PO DAILY 02/27/17 02/27/17 Previous Rx's Medication Instructions Recorded Ampicillin Sodium 2 gm IV Q6HR #40 vial 01/09/17 Cyanocobalamin (B-12) [Vitamin B12] 1,000 mcg PO DAILY tab 01/09/17 Famotidine [Pepcid] 20 mg PO BIDAC tab 01/09/17 Allergies Allergy/AdvReac Type Severity Reaction Status Date / Time No Known Allergies Allergy Verified 12/19/16 10:31 Limitations: ROS unobtainable due to patients medical condition Past Medical History - Past Medical History Medical history: Reports: arthritis, cardiomyopathy, coronary artery disease, CVA, dementia, hyperlipidemia, hypertension, osteoporosis, renal disease, thyroid disease, TIA Surgical history: Reports: carotid endarterectomy, knee replacement, pacemaker/ AICD Psychiatric history: Reports: no psych history - Social History Smoking Status: Former smoker Smokeless Tobacco Status: No Alcohol use: Reports: none Drug use: Reports: none Physical Exam - General Limitations: altered mental status General appearance: alert - Eye Eye exam: Absent: periorbital swelling, periorbital tenderness - ENT ENT exam: mucous membranes dry - Chest Chest inspection: Present: normal inspection. Absent: tenderness, rash - Respiratory Respiratory exam: Present: wheezes, other (Wheezes are present bilaterally. Decreased lung sounds. Crackles and rales present on right side. ). Absent: respiratory distress - Cardiovascular Cardiovascular exam: Present: tachycardia - Abdominal Exam Abdominal exam: Present: distention, rigidity. Absent: mass, pulsatile mass - Back Exam Back exam: Present: normal inspection, other (No presence of decubitus ulcers. No open wounds or lacerations. ). Absent: tenderness - Neurological Exam Neurological exam: Absent: alert, oriented X3 Course - Reevaluation(s) Reevaluation #1: 12:08- Techs are trying to urine cath the patient with difficulty. Unable to cath patient for urine at this time. Blood pressure increased up to 92/64 Time: 12:08 Reevaluation #2: Blood pressure is back down to 73/50 and heart rate is 108 at this time Time: 12:19 Reevaluation #3: MA=858 and blood pressure is 80/59. Lactic acid is 7.6. Time: 13:03 - Consultations Consultation #1: LABS-critical value 1:11pm lactic acid of 7.6 Time: 13:11 Consultation #2: community worker was present when POA decides to change the patient's code status from DNRCC to DNRCCA Vital Signs O2 Sat by Pulse Oximetry 95 02/27/17 11:10 Temperature 97.8 F 02/27/17 11:11 Pulse Rate 116 02/27/17 14:22 Respiratory Rate 14 02/27/17 15:20 Blood Pressure 86/67 02/27/17 15:20 O2 Sat by Pulse Oximetry 97 02/27/17 14:22 Oxygen Delivery Oxygen Delivery Nasal Cannula Altered Mental Status - MDM Narrative Medical decision making narrative: The patient is an 86 y/o M DNRCC who presents with altered mental status and arrived by EMS from shelter. Unable to obtain any history from the patient. Patient appears dehydrated with very dry mouth. Blood pressure on arrival was 68/50 and heart rate was 108. Glucose was 120. Patient was given 2L of fluids. Labs showed elevated WBC at 53.8 and Hgb at 9.4, which is lower than his baseline of 10.2. Lactic Acid is 7.6. Trop is 0.11. Chest xray showed possible Right lower lobe pneumonia. Patient given triple antibiotic including Zoysn, Vancomycin, and Levofloxacin. Plan to admit patient. Waiting on hospitalist to call. Discussed with family and updated them on the patient's status. Palliative was consulted and Dr. Mirza agree to see the patient on the floor. Dr. Gonzalez accepted the patient to the floor. Plan is to admit the patient. Family agrees with plan. - Lab Data Lab results reviewed: Yes I reviewed the patient's lab results. Result diagrams: 02/27/17 11:47 02/27/17 11:47 Lab Results 02/27/17 02/27/17 02/27/17 Range/Units 11:47 11:47 11:47 WBC 53.8 H* (4.3-11.1) K/mcL RBC 3.04 L (4.19-5.50) M/mcL Hgb 9.4 L (12.9-16.9) g/dL Hct 29.6 L (37.5-50.1) % MCV 97.4 (83.0-100.0) fL MCH 30.9 (28.0-33.3) pg MCHC 31.8 (31.6-35.5) g/dL RDW 25.8 H (11.5-14.5) % Plt Count 98 L (140-400) K/mcL MPV 11.2 (9.4-12.4) fL Seg Neutrophils % 35.0 % Band Neutrophils % 54.0 H (0-4) % Lymphocytes % 6.0 % Monocytes % 2.0 % Metamyelocytes % 2.0 H (0) % Myelocytes % 1.0 H (0) % Neutrophils # 47.9 H (1.6-8.9) K/mcL Lymphocytes # 3.2 (0.6-4.6) K/mcL Monocytes # 1.1 (0.0-1.3) K/mcL Nucleated RBCs/100 WBC 0.3 H (0) /100 WBC Platelet Estimate Slight Decrease L (Normal) Hypochromasia Present A (Not Present) Poikilocytosis 1+ A (Not Present) Anisocytosis 2+ A (Not Present) Microcytosis Present A (Not Present) PT 18.5 H (9.4-12.1) Seconds INR 1.7 APTT 35.3 (26.0-36.0) Seconds Sodium 146 H (136-145) mEq/L Potassium 3.6 (3.5-4.5) mEq/L Chloride 111 H (98-109) mEq/L Carbon Dioxide 16 L (19-29) mEq/L BUN 73 H (8-26) mg/dL Creatinine 2.80 H (0.72-1.25) mg/dL Est GFR ( Amer) 26 L (> 60) Est GFR (Non-Af Amer) 21 L (> 60) BUN/Creatinine Ratio 26 (6-26) Glucose 107 H (70-99) mg/dL Calculated Osmolality 324 H (280-300) Lactic Acid (0.5-2.2) mmol/L Calcium 9.2 (8.6-10.8) mg/dL Phosphorus 3.7 (2.3-4.7) mg/dL Magnesium 1.8 (1.6-2.6) mg/dL Total Bilirubin 1.7 H (0.2-1.2) mg/dL Direct Bilirubin 1.1 H (0.0-0.5) mg/dL Indirect Bilirubin 0.6 (0.0-1.2) mg/dL AST 145 H (5-34) Units/L ALT 70 H (0-55) Units/L Alkaline Phosphatase 284 H (38-126) Units/L Troponin I (0-0.03) ng/mL Serum Total Protein 5.9 L (6.0-8.3) g/dL Albumin 2.0 L (3.5-5.0) g/dL Globulin 3.9 H (2.4-3.5) g/dL Albumin/Globulin Ratio 0.5 L (1.1-2.2) Lipase < 10 (8-78) Units/L Ethyl Alcohol < 10 (0-10) mg/dL 02/27/17 02/27/17 Range/Units 11:47 12:52 WBC (4.3-11.1) K/mcL RBC (4.19-5.50) M/mcL Hgb (12.9-16.9) g/dL Hct (37.5-50.1) % MCV (83.0-100.0) fL MCH (28.0-33.3) pg MCHC (31.6-35.5) g/dL RDW (11.5-14.5) % Plt Count (140-400) K/mcL MPV (9.4-12.4) fL Seg Neutrophils % % Band Neutrophils % (0-4) % Lymphocytes % % Monocytes % % Metamyelocytes % (0) % Myelocytes % (0) % Neutrophils # (1.6-8.9) K/mcL Lymphocytes # (0.6-4.6) K/mcL Monocytes # (0.0-1.3) K/mcL Nucleated RBCs/100 WBC (0) /100 WBC Platelet Estimate (Normal) Hypochromasia (Not Present) Poikilocytosis (Not Present) Anisocytosis (Not Present) Microcytosis (Not Present) PT (9.4-12.1) Seconds INR APTT (26.0-36.0) Seconds Sodium (136-145) mEq/L Potassium (3.5-4.5) mEq/L Chloride (98-109) mEq/L Carbon Dioxide (19-29) mEq/L BUN (8-26) mg/dL Creatinine (0.72-1.25) mg/dL Est GFR ( Amer) (> 60) Est GFR (Non-Af Amer) (> 60) BUN/Creatinine Ratio (6-26) Glucose (70-99) mg/dL Calculated Osmolality (280-300) Lactic Acid 7.6 H* (0.5-2.2) mmol/L Calcium (8.6-10.8) mg/dL Phosphorus (2.3-4.7) mg/dL Magnesium (1.6-2.6) mg/dL Total Bilirubin (0.2-1.2) mg/dL Direct Bilirubin (0.0-0.5) mg/dL Indirect Bilirubin (0.0-1.2) mg/dL AST (5-34) Units/L ALT (0-55) Units/L Alkaline Phosphatase (38-126) Units/L Troponin I 0.11 H* (0-0.03) ng/mL Serum Total Protein (6.0-8.3) g/dL Albumin (3.5-5.0) g/dL Globulin (2.4-3.5) g/dL Albumin/Globulin Ratio (1.1-2.2) Lipase (8-78) Units/L Ethyl Alcohol (0-10) mg/dL - EKG Data EKG attestation: Yes I reviewed and interpreted this EKG. EKG shows normal: sinus rhythm Rate: tachycardia Rhythm: NSR [place]/QRS: left axis deviation When compared to previous EKG there are: no significant changes Interpretation: no acute changes Critical Care Time Critical Care Time: Yes Total Critical Care Time: 35 Attestation: Critical care time 35 minutes managing patient's pneumonia and septic shock. Attestation Statement - Attestation Attestation: Patient was seen with resident physician. I reviewed the history, physical, assessment and plan, and agree with the findings. I also personally evaluated this patient and had [id number] time with this patient. 78-year-old male DNR CC presents to the emergency department with mental status change. Patient's hypotensive and nonverbal. Unable to provide history. On exam patient's hypotensive tachycardic with slight decrease in oxygenation. Heart tachycardic with regular rhythm lungs crackles throughout. Abdomen soft nontender with some mild bruising in the left flank. Extremities unremarkable. Neurologically unable to truly evaluate he did move all extremities. ENT patient had dry mucous membranes throughout. ED course patient was started on potential sepsis protocol. Chest x-ray revealed pneumonia. Consistent with his symptoms we started him on a septic shock protocol with IV fluids antibiotic therapy and blood cultures he had multiple abnormalities noted on laboratory testing. Somewhat limited in terms of all we can do because of his DNR status. However we did aggressively resuscitate to limits and that we are able to. We had multiple discussions with the family about DNR status. Initially the patient power of document review attorney wanted him to switch to DNR CCA, but when we explained that this would involve them placing a central line probable intubation and started on pressors, the family had another family meeting and change back to DNR CC. At this point we discussed this with the hospitalist service to again agreed to accept the patient. We discussed the possibility of discontinuing or vomiting but IV fluids and will consult palliative care to help guide the family along that decision-making pathway. In the meantime he will be admitted to the hospitalist service for additional treatment without resuscitation should the patient code. I agree with the resident physician assessment and plan. Critical care time 35 minutes.
[2017-02-27 12:00] LABS: Hematocrit 29.6 % (37.5-50.1); Hemoglobin 9.4 g/dL (12.9-16.9); Mean Corpuscular HGB Conc 31.8 g/dL (31.6-35.5); Mean Corpuscular Hemoglobin 30.9 pg (28.0-33.3); Mean Corpuscular Volume 97.4 fL (83.0-100.0); Mean Platelet Volume 11.2 fL (9.4-12.4); Nucleated Red Blood Cells 0.3 /100 WBC (0); Red Blood Count 3.04 M/mcL (4.19-5.50); Red Cell Distribution Width 25.8 % (11.5-14.5)
[2017-02-27 12:02] LABS: Platelet Count 98 K/mcL (140-400)
[2017-02-27 12:03] LABS: INR 1.7; Prothrombin Time 18.5 Seconds (9.4-12.1)
[2017-02-27 12:06] LABS: Activated Partial Thrombo Time 35.3 Seconds (26.0-36.0)
[2017-02-27] MEDS ORDERED: Piperacillin/Tazobactam 4.5 GM in D5% in Water (Mini-Bag+) 100 ML IVPB ONE (12:15)
[2017-02-27] MEDS ORDERED: Vancomycin 1,000 MG in D5% in Water 250 ML IVPB ONE (12:17)
[2017-02-27 12:18] LABS: Blood Urea Nitrogen 73 mg/dL (8-26); Carbon Dioxide 16 mEq/L (19-29); Chloride 111 mEq/L (98-109); Potassium 3.6 mEq/L (3.5-4.5); Sodium 146 mEq/L (136-145)
[2017-02-27 12:19] LABS: Alanine Aminotransferase 70 Units/L (0-55); Albumin/Globulin Ratio 0.5 (1.1-2.2); Alkaline Phosphatase 284 Units/L (38-126); Aspartate Amino Transferase 145 Units/L (5-34); BUN/Creatinine Ratio 26 (6-26); Bilirubin,Direct 1.1 mg/dL (0.0-0.5); Bilirubin,Indirect 0.6 mg/dL (0.0-1.2); Bilirubin,Total 1.7 mg/dL (0.2-1.2); Calcium 9.2 mg/dL (8.6-10.8); Ethanol < 10 mg/dL (0-10); Globulin 3.9 g/dL (2.4-3.5); Glucose 107 mg/dL (70-99); Lymphocytes # 3.2 K/mcL (0.6-4.6); Monocytes # 1.1 K/mcL (0.0-1.3); Neutrophils # 47.9 K/mcL (1.6-8.9); Osmolality,Calculated 324 (280-300); Total Protein 5.9 g/dL (6.0-8.3); eGFR For African Americans 26 (> 60); eGFR For Non-African Americans 21 (> 60)
[2017-02-27 12:20] LABS: Hypochromasia Present (Not Present); Platelet Estimate Slight Decrease (Normal)
[2017-02-27] MEDS ORDERED: Levofloxacin 750 MG/150 ML 750 MG/150 ML BAG IVPB ONE (12:20)
[2017-02-27 12:21] LABS: Anisocytosis 2+ (Not Present); Microcytosis Present (Not Present); Poikilocytosis 1+ (Not Present)
[2017-02-27 12:48] LABS: Magnesium 1.8 mg/dL (1.6-2.6); Phosphorous 3.7 mg/dL (2.3-4.7)
[2017-02-27 12:49] LABS: Lipase < 10 Units/L (8-78)
[2017-02-27] MEDS ORDERED: 0.9 % Sodium Chloride 500 ML IVC ONE (13:31)
[2017-02-27 15:22] VITALS: BP 86/67
--- NOTE | 2017-02-27 16:16 | Event Note ---
Date of Encounter: 02/27/17 Time of Encounter: 16:13 - Cardiology Event Note Cardiology consulted for device de-activation. Per family, patient is being made DNR-CC. Spoke with patient's and family regarding device de- activation. and family agreeable for device to be deactivated so that it would not shock patient if he would go into a non-life sustaining rhythm. Alexia , device clinic, notified of need for device to be de-activated. Educated nurse that if something would happen prior to Alexia seeing patient, to place magnet over site of device.
--- NOTE | 2017-02-27 16:26 | Internal Med History&Physical ---
Date of Encounter: 02/27/17 Time of Encounter: 16:23 Assessment and Plan (1) Metabolic encephalopathy Current visit: Yes Status: Acute Likely secondary to overwhelming infection on top of baseline dementia. Patient will be comfort care, will treat anxiety and agitation pain and shortness of breath. (2) Dementia Current visit: Yes Status: Acute Qualifiers: Dementia type: unspecified type Dementia behavioral disturbance: without behavioral disturbance Qualified Code(s): F03.90 - Unspecified dementia without behavioral disturbance (3) Septic shock Current visit: Yes Status: Acute Chest x-ray shows possible pneumonia. Source is either pneumonia R UTI given his history of recurrent UTI. He has overwhelming sepsis and septic shock with persistent hypotension and lactic acid level of 7.5 Based on my discussion at the bedside with the patient's 2 sons and other family members everybody was in agreement to proceed with comfort care measures only per the patient's wishes. We will not continue IV fluids or IV antibiotics. This was discussed with the family and they expressed agreement with the plan. We will initiate comfort measures with IV morphine as needed for pain, air hunger or intractable cough. IV Ativan for agitation or anxiety. Oral atropine for excessive oral and upper airway secretions. Discontinue all blood draws and needle sticks. Discontinue all unnecessary oral medications. We will provide comfort measures only. He is at high risk for him mortality and complications due to overwhelming sepsis and de-escalation of care. (4) Cystitis Current visit: No Status: Acute Likely the source of sepsis. Due to advanced disease in form of septic shock and multiorgan failure antibiotic treatment for source would be futile and therefore will refrain from this. (5) DVT prophylaxis Current visit: No Status: Acute No DVT prophylaxis due to Comfort Care measures only. Internal Medicine - H&P: HPI Chief complaint: Altered mental status Admitted From: Emergency Dept Plans for Post Hospital Care: Home History of present illness: Mr. Smith is a 86 year old male with multiple medical comorbidities who was brought from the residential to be evaluated for altered mental status. The patient is obtunded and nonverbal and therefore cannot provide any history. History is obtained from the patient's children at bedside and review of his prior medical record. He had been in the residential for about 2 months recovering after an episode of complicated UTI followed by an episode of blood infection treated with antibiotics. For the last 3 days he has become more lethargic and less responsive, today he was brought to the hospital for evaluation and in the emergency department he was hypotensive and tachycardic. He was given broad-spectrum IV antibiotics and IV fluids boluses however his blood pressure did not respond. We were asked to admit this patient. Review of systems, past medical family and social history per review of records otherwise unobtainable due to altered mental status. Past Med Surg Social Fam HX - Past Medical History Medical history: arthritis, cardiomyopathy, coronary artery disease, CVA, dementia, hyperlipidemia, hypertension, osteoporosis, renal disease, thyroid disease, TIA Psychiatric history: no psych history - Past Surgical History Surgical History: carotid endarterectomy, knee replacement, pacemaker/AICD - Social History Smoking Status: Former smoker Smokeless Tobacco Status: No Alcohol use: none Drug use: none - Family History Brother Family Member Ethnicity: Non- Living Status: Hx Family Cardiac Disorders: Yes ([place]) Sister Family Member Ethnicity: Non- Living Status: Hx Family Neurologic Disorders: Yes (Dementia/Alzheimer's disease) Mother Family Member Ethnicity: Non- Living Status: Hx Family Cardiac Disorders: Yes ([place]) Father Family Member Ethnicity: Non- Living Status: Hx Family Cardiac Disorders: Yes ([place]) Internal Medicine - H&P: Meds Aspirin [Adult Low Dose Aspirin EC] 81 mg PO DAILY 06/19/15 [History] Atorvastatin [Lipitor] 40 mg PO HS 12/19/16 [History] Levothyroxine [Synthroid] 100 mcg PO 0630 12/19/16 [History] Ampicillin Sodium 2 gm IV Q6HR #40 vial 01/09/17 [Rx] Cyanocobalamin (B-12) [Vitamin B12] 1,000 mcg PO DAILY tab 01/09/17 [Rx] Famotidine [Pepcid] 20 mg PO BIDAC tab 01/09/17 [Rx] Albuterol Neb [Proventil Neb] 2.5 mg IH Q4H PRN 02/27/17 [History] Gentamicin OPTH Soln 1 drop RIGHT EYE QID 02/27/17 [History] Lactobacillus Acidophilus [Acidophilus] 1 cap PO DAILY 02/27/17 [History] Loperamide [Imodium] 4 mg PO BID PRN 02/27/17 [History] Melatonin 10 mg PO HS PRN 02/27/17 [History] Memantine HCl 10 mg PO BID 02/27/17 [History] Metoprolol Succinate 25 mg PO DAILY 02/27/17 [History] Naproxen Sodium [All Day Pain Relief] 220 mg PO BID PRN 02/27/17 [History] Spironolactone [Aldactone] 12.5 mg PO DAILY 02/27/17 [History] Tamsulosin [Flomax] 0.4 mg PO DAILY 02/27/17 [History] levoFLOXacin [Levaquin] 500 mg PO DAILY 02/27/17 [History] 3 Allergy/AdvReac Type Severity Reaction Status Date / Time No Known Allergies Allergy Verified 12/19/16 10:31 All Systems PM: A 10-system review of systems was performed and is negative for pertinent findings except as documented above in the HPI. - Constitutional Vitals: Temp Pulse Resp BP Pulse Ox 97.8 F 116 14 86/67 97 02/27/17 11:11 02/27/17 14:22 02/27/17 15:20 02/27/17 15:20 02/27/17 14:22 General appearance: Present: A&O X 0 (Asleep arousable, does not follow commands , opens eyes to voice, nonverbal) - Eye Eye exam: Present: PERRL, conjuntiva pink, sclera anicteric Pupils: Present: PERRL - Respiratory Respiratory exam: Present: decreased breath sounds, CTAB. Absent: accessory muscle use, rales, rhonchi, wheezes - Cardiovascular Cardiovascular exam: Present: RRR, +S1, +S2. Absent: diastolic murmur, gallop, rubs, systolic murmur - GI/Abdominal GI/Abdominal exam: Present: normal bowel sounds, soft, no peritoneal signs. Absent: distended, tenderness - Extremities Exam Extremities exam: Present: warm, radial pulses palpable and symmetrical. Absent : calf tenderness, cyanotic, pedal edema - Skin Skin exam: Present: dry, intact Internal Med - H&P Results - Labs CBC & Chem 7: 02/27/17 11:47 02/27/17 11:47
[2017-02-27] MEDS ORDERED: Ondansetron 4 MG/2 ML VIAL IVP PRN (16:43)
[2017-02-27] MEDS ORDERED: Scopolamine Patch 1.5 MG PATCH.TD72 TD SCH (16:45)
[2017-02-27] MEDS: *HR* Morphine 2 MG/ML SYRINGE IVP PRN ×3 (17:19→22:40)
[2017-02-27] MEDS ORDERED: Bisacodyl 10 MG RECTAL SUPPOSITORY RC PRN (21:00)
--- NOTE | 2017-02-27 21:11 | Electrocardiograph Report ---
[facility] Test Date: 2017-02-27 Pat Name: Nasima Smith Department: 103 Room: 2A55 Gender: M Rating Specialist: : [id number] Requested By: Poly Al Order Number: [id number] Reading MD: Sergio Vásquez MD Measurements Intervals [place] Rate: 116 P: 63 NH: 178 QRS: -43 QRSD: 118 T: 114 QT: 329 QTc: 398 Interpretive Statements SINUS TACHYCARDIA MARKED LEFT AXIS DEVIATION MODERATE INTRAVENTRICULAR CONDUCTION DELAY MODERATE ST DEPRESSION ABNORMAL QRS-T ANGLE Electronically Signed On 02-27-2017 21:09:54 EDT by Sergio Vásquez MD
--- NOTE | 2017-02-27 22:13 | Event Note ---
Date of Encounter: 02/27/17 Time of Encounter: 22:09 Notified by nursing that family is at bedside and reports patient needs treatment for pink eye. Daughter states [facility] but has not been treated. Patient seen and examined. Patient is unable to answer questions secondary to mental status and moans when I open his eye lids to examine his conjunctiva. His right eye has mild conjunctiva with minimal dry purulent discharge. Left eye appears normal. Pupils PERRL bilaterally. Given duration of current symptoms, patient started on Erythromycin ophthalmic ointment.
[2017-02-27] MEDS: Erythromycin OPTH Oint RIGHT EYE SCH (22:40)
[2017-02-28] MEDS: *HR* LORazepam 2 MG/ML VIAL IVP PRN ×3 (02:35→14:01)
[2017-02-28] MEDS: *HR* Morphine 2 MG/ML SYRINGE IVP PRN ×6 (02:45→14:01)
[2017-02-28] MEDS ORDERED: *HR* LORazepam 2 MG/ML VIAL IVP ONE (02:56)
[2017-02-28] MEDS ORDERED: Albuterol 2.5 MG/3 ML NEBULIZER ONE (02:57)
[2017-02-28] MEDS ORDERED: Ipratropium/Albuterol Neb 3 ML IH ONE (03:01)
[2017-02-28] MEDS ORDERED: Albuterol 2.5 MG/3 ML NEBULIZER IH ONE (03:05)
[2017-02-28] MEDS: Erythromycin OPTH Oint RIGHT EYE SCH (03:35)
[2017-02-28] MEDS: Sennosides/Docusate Sodium TABLET PO SCH ×2 (03:39→07:31)
[2017-02-28] MEDS: Atropine Sulfate 1% 40 DROP/2 ML BOTTLE SL PRN ×3 (04:36→07:45)
[2017-02-28] MEDS ORDERED: Atropine Sulfate 1% 40 DROP/2 ML BOTTLE SL PRN (09:11)
[2017-02-28] MEDS ORDERED: *HR* Morphine 30 MG/ 30 ML PCA IVC SCH (09:15)
--- NOTE | 2017-02-28 09:20 | Palliative - Consult Note ---
Date of Encounter: 02/28/17 Time of Encounter: 09:00 - Assessment and Plan (1) Generalized pain Current Visit: Yes Status: Acute Assessment and plan: Patient has utilized Morphine 1mg x7 last 14 hours. Family does not feel he is comfortable enough with this dose. They asked if medication could be scheduled , so they can ensure his comfort, and do not have to continually ask for it and wait for nursing to be able to provide. Will begin continuous Morphine and have boluses available PRN every hour if needed. Increase to 2mg to ensure comfort. (2) Ineffective airway clearance Current Visit: Yes Status: Acute (3) Congestion of upper airway Current Visit: Yes Status: Acute Assessment and plan: Increase Atropine drops to 4 drops every hr PRN, continue scopolamine patch, trial dose of IV Robinul. (4) Anxiety Current Visit: Yes Status: Acute Assessment and plan: Continue IV Lorazepam as ordered and monitor. Utilized x2 last 24 hours. (5) Goals of care, counseling/discussion Current Visit: Yes Status: Acute Assessment and plan: Discussed with family - I do not think he will survive long enough to benefit from transition to inpt hospice. Family states that they do not think that would help his care at this point, and do not want to go through the "paperwork ", when they know he is actively dying. Will continue to support with symptom management. (6) Sepsis Current Visit: No Status: Resolved Qualifiers: Sepsis type: sepsis due to unspecified organism Qualified Code(s): A41.9 - Sepsis, unspecified organism Palliative-CN HPI - Data of Consult Requesting Physician: Jovana Garcia MD Primary Care Provider: Edy Rizzo MD - Consult Narrative History of present illness: Mr. Smith is a 86 year old male with multiple medical comorbidities who [facility] to be evaluated for altered mental status. He was found to have pneumonia and met sepsis criteria. After all family arrived, discussions regarding goals of care were held, and they decided to transition him to comfort care only, and not treat with fluids/IV atb. Cardiology was consulted and pt defibrillator deactivated yesterday pm. According to family at bedside, He had been in the [facility] for about 2 months recovering after an episode of complicated UTI followed by an episode of blood infection treated with antibiotics. For the last 3 days he has become more lethargic and less responsive, and yesterday was brought to the hospital for evaluation and in the emergency department he was hypotensive and [place]cardic [place] [id number]. Lactic acid greater than 7. He was treated initially with broad- spectrum IV antibiotics and IV fluids boluses however his blood pressure did not respond. CC: Jovana Garcia MD Past Med Surg Social Fam HX - Past Medical History Medical history: arthritis, cardiomyopathy, coronary artery disease, CVA, dementia, hyperlipidemia, hypertension, osteoporosis, renal disease, thyroid disease, TIA Psychiatric history: no psych history - Past Surgical History Surgical History: carotid endarterectomy, knee replacement, pacemaker/AICD - Social History Smoking Status: Former smoker Smokeless Tobacco Status: No Alcohol use: none Drug use: none - Family History Brother Family Member Ethnicity: Non- Living Status: Hx Family Cardiac Disorders: Yes ([place]) Sister Family Member Ethnicity: Non- Living Status: Hx Family Neurologic Disorders: Yes (Dementia/Alzheimer's disease) Mother Family Member Ethnicity: Non- Living Status: Hx Family Cardiac Disorders: Yes ([place]) Father Family Member Ethnicity: Non- Living Status: Hx Family Cardiac Disorders: Yes ([place]) Medications and Allergies Aspirin [Adult Low Dose Aspirin EC] 81 mg PO DAILY 06/19/15 [History] Atorvastatin [Lipitor] 40 mg PO HS 12/19/16 [History] Levothyroxine [Synthroid] 100 mcg PO 0630 12/19/16 [History] Ampicillin Sodium 2 gm IV Q6HR #40 vial 01/09/17 [Rx] Cyanocobalamin (B-12) [Vitamin B12] 1,000 mcg PO DAILY tab 01/09/17 [Rx] Famotidine [Pepcid] 20 mg PO BIDAC tab 01/09/17 [Rx] Albuterol Neb [Proventil Neb] 2.5 mg IH Q4H PRN 02/27/17 [History] Gentamicin OPTH Soln 1 drop RIGHT EYE QID 02/27/17 [History] Lactobacillus Acidophilus [Acidophilus] 1 cap PO DAILY 02/27/17 [History] Loperamide [Imodium] 4 mg PO BID PRN 02/27/17 [History] Melatonin 10 mg PO HS PRN 02/27/17 [History] Memantine HCl 10 mg PO BID 02/27/17 [History] Metoprolol Succinate 25 mg PO DAILY 02/27/17 [History] Naproxen Sodium [All Day Pain Relief] 220 mg PO BID PRN 02/27/17 [History] Spironolactone [Aldactone] 12.5 mg PO DAILY 02/27/17 [History] Tamsulosin [Flomax] 0.4 mg PO DAILY 02/27/17 [History] levoFLOXacin [Levaquin] 500 mg PO DAILY 02/27/17 [History] 3 Allergy/AdvReac Type Severity Reaction Status Date / Time No Known Allergies Allergy Verified 12/19/16 10:31 ROS unobtainable: due to mental status Palliative Care-Exam - Constitutional Vitals: Temp Pulse Resp BP Pulse Ox 97.8 F 116 15 86/67 92 02/27/17 11:11 02/27/17 14:22 02/28/17 02:59 02/27/17 15:20 02/28/17 02:59 General appearance: Present: mild distress - Head Head Exam: Present: normal inspection, normocephalic - ENT ENT exam: Present: mucous membranes dry - Respiratory Additional comments: Audible rhonchi throughout - Cardiovascular Cardiovascular exam: Present: irregular rhythm - GI/Abdominal Exam GI/Abdominal exam: Present: distended, soft - Catheter Type: Urethral (Narayan) - Extremities Exam Extremities exam: Present: normal capillary refill, normal inspection - Neurological Exam Additional comments: Patient unresponsive, moaning at intervals - Skin Skin exam: Present: dry, pallor, warm Internal Medicine - CN: Reslt - Labs CBC & Chem 7: 02/27/17 11:47 02/27/17 11:47 - ABG Interpretation ABG results: PT/INR, D-dimer PT 18.5 Seconds (9.4-12.1) H 02/27/17 11:47 Consult Discharge Plan - Plan Referrals: Edy Rizzo MD [Primary Care Provider] - Palliative Quality Palliative Quality: Screen for Code Status: Yes, Screen for Goals of Care: Yes, Screen for Pain: Yes, If Pain Regimen Started, Initiate Bowel Regimen: Yes, Screen for Nausea/Vomitting: NA
--- NOTE | 2017-02-28 12:56 | Internal Med Progress Note ---
Date of Encounter: 02/28/17 Time of Encounter: 12:54 - Assessment and plan (1) Goals of care, counseling/discussion Current Visit: Yes Status: Acute Assessment and plan: As per patient's request, comfort care measures were initiated Palliative care on board and consultation appreciated continue pain management as per palliative care no lab draws (2) Metabolic encephalopathy Current Visit: Yes Status: Acute (3) Pneumonia Current Visit: Yes Status: Acute Qualifiers: Pneumonia type: due to unspecified organism Laterality: right Lung location: lower lobe of lung Qualified Code(s): J18.1 - Lobar pneumonia, unspecified organism (4) Septic shock Current Visit: Yes Status: Acute - Subjective Interval history: Patient is an 86y/o male admitted for septic shock, however after initial evaluation, decision was made to continue with comfort care measures only. Patient seen and examined with family present at bedside. Pt receiving pain medications and resting comfortably in bed. Palliative care consultation on board and recommendations appreciated. - Constitutional Vitals: Temp Pulse Resp BP Pulse Ox 97.8 F 116 15 86/67 92 02/27/17 11:11 02/27/17 14:22 02/28/17 02:59 02/27/17 15:20 02/28/17 02:59 General appearance: Present: A&O X 0 (asleep, arousable) - Respiratory Respiratory exam: Present: decreased breath sounds. Absent: respiratory distress, wheezes - Cardiovascular Cardiovascular exam: Present: RRR, +S1, +S2. Absent: diastolic murmur, gallop, rubs, systolic murmur - GI/Abdominal GI/Abdominal exam: Present: normal bowel sounds, soft, no peritoneal signs. Absent: distended, tenderness - Extremities Exam Extremities exam: Present: warm, radial pulses palpable and symmetrical. Absent : calf tenderness Internal Medicine: Result - Labs CBC & Chem 7: 02/27/17 11:47 02/27/17 11:47 - ABG Interpretation ABG results: PT/INR, D-dimer PT 18.5 Seconds (9.4-12.1) H 02/27/17 11:47 - VTE Reasons for not Prescribing Prophylaxis: Medical contraindication Consult Discharge Plan - Plan Referrals: Edy Rizzo MD [Primary Care Provider] -
--- NOTE | 2017-03-07 08:55 | Death Note ---
Discharge Sum: Summary - Date and Time Date of admission: 02/27/17 16:38 - Additional Data Attending physician: Jovana Garcia MD Discharge Sum: Diag - PCOD Probable Cause of : Septic shock Discharge Sum: Prov - Provider Primary care physician: Edy Rizzo MD Pronouncing clinician: Jovana Garcia
== END 2017-02-28 17:59 | disposition expired | DRG 871 ==
LOC: 2ANU 11:10 → EMEROO 11:10 → 2ANU 15:21 → SUATTDRO 16:38
PROVIDERS: ADMIT Registered Nurse; ATTEND Internal Medicine